=== PATIENT | female | born 1995 | race Caucasian/White ===

== ENCOUNTER 2017-03-12 17:17 | Emergency (ER) | payer OTHER ==
[2017-03-12 17:40] VITALS: BP 117/57; PULSE 67; RESP 18; TEMP 98
--- NOTE | 2017-03-12 18:00 | XR ---
EXAMINATION TYPE: XR wrist complete RT DATE OF EXAM: 03/12/2017 5:52 PM CLINICAL HISTORY: pain TECHNIQUE: Frontal, lateral and oblique images of the right wrist are obtained. Scaphoid views also obtained. COMPARISON: None. FINDINGS: There is no acute fracture/dislocation evident. The joint spaces appear within normal limits. The o verlying soft tissue appears unremarkable. IMPRESSION: There is no acute fracture or dislocation seen. ICD 10 NO FRACTURE, INITIAL EVALUATION
--- NOTE | 2017-03-12 18:05 | ED ---
Upper Extremity HPI - General Chief Complaint: Extremity Injury, Upper Stated Complaint: wrist injury Time Seen by Provider: 03/12/17 17:47 Source: patient, RN notes reviewed Mode of arrival: ambulatory Limitations: no limitations - History of Present Illness Initial Comments: 21-year-old female presents emergency time and with chief complaint of right wrist pain. Patient states that she could not breathe uterus versus hurts with certain movements. 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 Patient states she is in. Patient states is no radiation the pain. Patient states that movement seems to make it worse. Patient is denying any other symptoms at this time.Patient denies any recent fever, chills, shortness of breath, chest pain, back pain, abdominal pain, nausea vomiting, numbness or tingling, dysuria or hematuria, constipation or diarrhea, headaches or visual changes, or any other current symptoms. - Related Data Home Medications Medication Instructions Recorded Confirmed No Known Home Medications [No 03/12/17 03/12/17 Known Home Medications] Allergies Allergy/AdvReac Type Severity Reaction Status Date / Time Penicillins Allergy Anaphylaxis Verified 03/12/17 17:50 Review of Systems ROS Statement: Those systems with pertinent positive or pertinent negative responses have been documented in the HPI. ROS Other: All systems not noted in ROS Statement are negative. Past Medical History Past Medical History: No Reported History History of Any Multi-Drug Resistant Organisms: None Reported Past Surgical History: No Surgical Hx Reported Past Psychological History: Anxiety, Bipolar, Depression, Panic Disorder, PTSD Smoking Status: Current every day smoker Past Alcohol Use History: None Reported Past Drug Use History: None Reported General Exam - General Exam Comments Initial Comments: General: The patient is awake and alert, in no distress, and does not appear acutely ill. Neck: The neck is supple, there is no tenderness. Cardiovascular: There is a regular rate and rhythm. No murmur, rub or gallop is appreciated. Respiratory: Lungs are clear to auscultation, respirations are non-labored, breath sounds are equal. No wheezes, stridor, rales, or rhonchi. Musculoskeletal: Sensation intact. 2+ pulses. Right upper extremity. Full range of motion of the right elbow wrist and hand. Patient does have some mild diffuse tenderness throughout the right wrist. Patient has pain on extremes of range of motion of the right wrist. 5 out of 5 muscle strength testing. Neurological: CN II-XII intact, There are no obvious motor or sensory deficits. Coordination appears grossly intact. Speech is normal. Skin: Skin is warm and dry and no rashes or lesions are noted. Psychiatric: Normal mood and affect. Limitations: no limitations Course Vital Signs 03/12/17 17:37 Temperature 98.0 F Pulse Rate 67 Respiratory 18 Rate Blood Pressure 117/57 O2 Sat by Pulse 100 Oximetry Medical Decision Making - Medical Decision Making 21-year-old female presents to the emergency department what appears to be a right wrist strain. Patient shows no acute process. This time we give give the patient prescription for right wrist splint. We discussed care follow-up and return parameters. We discussed all patient's questions. She stated that she understood and is in agreement plan. Time she will be discharged home. - Radiology Data Radiology results: report reviewed, image reviewed Disposition Clinical Impression: Right wrist sprain Disposition: HOME SELF-CARE Condition: Stable Instructions: Wrist Sprain (ED) Additional Instructions: Please use medication as discussed. Please follow up with family doctor if symptoms have not improved over the next two days. Please return to the emergency room if your symptoms increase or worsen or for any other concerns. Referrals: None,Stated [Primary Care Provider] - 1-2 days Jesus Alegria MD [STAFF PHYSICIAN] - 1-2 days Time of Disposition: 18:05
== END 2017-03-12 18:19 | disposition home or self-care (01) ==
LOC: EC 17:17
DX: S63.501A Unspecified sprain of right wrist, initial encounter (principal); F17.200 Nicotine dependence, unspecified, uncomplicated; Z88.0 Allergy status to penicillin; W18.30XA Fall on same level, unspecified, initial encounter
CPT/HCPCS: 99283

== ENCOUNTER 2017-03-20 06:54 | Emergency (ER) | payer OTHER ==
[2017-03-20 07:03] VITALS: RESP 18
--- NOTE | 2017-03-20 07:29 | ED ---
General Adult HPI - General Chief complaint: ENT Stated complaint: wrist pain-revisit Time Seen by Provider: 03/20/17 07:05 Source: patient, RN notes reviewed Mode of arrival: ambulatory Limitations: no limitations - History of Present Illness Initial comments: Patient is a pleasant 21-year-old female presenting to the emergency department complaining of right wrist pain. Patient states she injured her right wrist at work around 2 weeks ago. Patient was seen and had x-rays done that reported as normal. Patient was prescribed a brace. Patient has had continued discomfort since that time. 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 Patient agrees that this may be causing some problems. No history of chronic problems here. Patient has tried to follow-up with a primary care physician however has had difficulty. Patient states she hit her right distal forearm/wrist region on a metal cabinet while at work. Pain started right afterwards. Patient states the pain does radiate somewhat up the arm. - Related Data Home Medications Medication Instructions Recorded Confirmed No Known Home Medications [No 03/12/17 03/20/17 Known Home Medications] Allergies Allergy/AdvReac Type Severity Reaction Status Date / Time Penicillins Allergy Anaphylaxis Verified 03/20/17 07:12 Review of Systems ROS Statement: Those systems with pertinent positive or pertinent negative responses have been documented in the HPI. ROS Other: All systems not noted in ROS Statement are negative. Constitutional: Denies: fever Eyes: Denies: eye pain ENT: Denies: ear pain Respiratory: Denies: cough Cardiovascular: Denies: chest pain Endocrine: Denies: fatigue Gastrointestinal: Denies: abdominal pain Genitourinary: Denies: urgency Musculoskeletal: Denies: back pain Skin: Denies: rash Neurological: Denies: weakness Past Medical History Past Medical History: No Reported History History of Any Multi-Drug Resistant Organisms: None Reported Past Surgical History: No Surgical Hx Reported Past Psychological History: Anxiety, Bipolar, Depression, Panic Disorder, PTSD Smoking Status: Current every day smoker Past Alcohol Use History: None Reported Past Drug Use History: None Reported General Exam Limitations: no limitations General appearance: alert, in no apparent distress Head exam: Present: atraumatic Eye exam: Present: normal appearance Neck exam: Present: normal inspection Respiratory exam: Present: normal lung sounds bilaterally Cardiovascular Exam: Present: regular rate, normal rhythm GI/Abdominal exam: Present: soft. Absent: tenderness Extremities exam: Present: full ROM (Without much discomfort), tenderness ( Distal right radius region), other (Good strength and sensation is intact) Neurological exam: Present: alert. Absent: motor sensory deficit Psychiatric exam: Present: normal affect, normal mood Skin exam: Absent: rash Course Vital Signs 03/20/17 07:00 Temperature 98.5 F Pulse Rate 70 Respiratory 18 Rate Blood Pressure 146/86 O2 Sat by Pulse 99 Oximetry Medical Decision Making - Medical Decision Making Patient reevaluated and updated. - Radiology Data Radiology results: image reviewed (Right forearm x-ray shows no acute abnormality) Disposition Clinical Impression: Forearm contusion Disposition: HOME SELF-CARE Condition: Stable Instructions: Contusion in Adults (ED) Additional Instructions: Continue to use your wrist brace. Ice to affected area. Avoid repetitive use or heavy lifting with right hand. Please follow-up with [facility] or primary care physician in the next day or 2 for recheck. Continue Motrin or naproxen as needed. Referrals: None,Stated [Primary Care Provider] - 1-2 days Daniel Collier MD [STAFF PHYSICIAN] - 1-2 days Jesus Alegria MD [STAFF PHYSICIAN] - 1-2 days Nestor Garcia MD [STAFF PHYSICIAN] - 1-2 days Lynn Chandra MD [STAFF PHYSICIAN] - 1-2 days Time of Disposition: 08:23
--- NOTE | 2017-03-20 07:42 | XR ---
EXAMINATION TYPE: XR forearm RT DATE OF EXAM: 03/20/2017 7:35 AM COMPARISON: Correlation wrist 03/12/2017 HISTORY: 21-year-old female with pain extending from the wrist to the elbow with numbness following w ork injury 1 week ago. TECHNIQUE: 2 views FINDINGS: No elbow joint effusion on the lateral view. No acute fracture, subluxation, or dislocation seen. IMPRESSION: No acute osseous abnormality seen.
[2017-03-20 08:34] VITALS: BP 128/68; PULSE 54; TEMP 97.4
== END 2017-03-20 08:33 | disposition home or self-care (01) ==
LOC: EC 06:54
DX: S50.11XA Contusion of right forearm, initial encounter (principal); Z88.0 Allergy status to penicillin; F17.200 Nicotine dependence, unspecified, uncomplicated; W22.09XA Striking against other stationary object, initial encounter; Y92.69 Other specified industrial and construction area as the place of occurrence of the external cause; Y99.0 Civilian activity done for income or pay
CPT/HCPCS: 99283

== ENCOUNTER 2017-04-25 21:49 | Emergency (ER) | payer OTHER ==
--- NOTE | 2017-04-25 22:42 | XR ---
EXAM: XR Right Ankle Complete, 3 or More Views CLINICAL HISTORY: Reason: Pain TECHNIQUE: Frontal, lateral and oblique views of the right ankle. COMPARISON: No relevant prior studies available. FINDINGS: No acute fracture or dislocation. IMPRESSION: No acute fracture or dislocation.
--- NOTE | 2017-04-25 22:43 | XR ---
EXAM: XR Right Foot Complete, 3 or More Views CLINICAL HISTORY: Reason: Pain TECHNIQUE: Frontal, lateral and oblique views of the right foot. COMPARISON: No relevant prior studies available. FINDINGS: No acute fracture or dislocation. IMPRESSION: No acute fracture or dislocation.
--- NOTE | 2017-04-25 23:13 | ED ---
Lower Extremity Injury HPI - General Chief Complaint: Extremity Injury, Lower Stated Complaint: Fall, ankle injury Time Seen by Provider: 04/25/17 22:18 Source: patient, EMS, RN notes reviewed Mode of arrival: EMS Limitations: no limitations - History of Present Illness Initial Comments: Patient is a 21-year-old female since emergency room for evaluation of right ankle pain. Patient states she was walking around her house and accidentally twisted her right ankle. Patient states she felt a pop and immediate pain. Patient states she was unable to get up so they called EMS. Patient states having 10 out of 10 pain on the medial and lateral portion of her ankle. Patient denies any other injuries during incident. Patient denies numbness or tingling in her toes. Patient states the pain radiates up to the lateral proximal lower leg. - Related Data Previous Rx's Medication Instructions Recorded Ibuprofen [Motrin] 600 mg PO Q6HR PRN #20 tab 04/25/17 Allergies Allergy/AdvReac Type Severity Reaction Status Date / Time Penicillins Allergy Anaphylaxis Verified 04/25/17 22:55 Review of Systems ROS Statement: Those systems with pertinent positive or pertinent negative responses have been documented in the HPI. ROS Other: All systems not noted in ROS Statement are negative. Past Medical History Past Medical History: No Reported History History of Any Multi-Drug Resistant Organisms: None Reported Past Surgical History: No Surgical Hx Reported Past Psychological History: Anxiety, Bipolar, Depression, Panic Disorder, PTSD Smoking Status: Current every day smoker Past Alcohol Use History: None Reported Past Drug Use History: None Reported General Exam - General Exam Comments Initial Comments: sitting in exam room, no distress. Limitations: no limitations General appearance: alert, in no apparent distress Head exam: Present: atraumatic, normocephalic, normal inspection Eye exam: Present: normal appearance ENT exam: Present: normal exam Neck exam: Present: normal inspection Respiratory exam: Present: normal lung sounds bilaterally. Absent: respiratory distress Cardiovascular Exam: Present: regular rate, normal rhythm, normal heart sounds Right Lower Leg exam: Present: tenderness (lateral proximal) Ankle exam: Present: normal inspection, tenderness (lateral malleolus and medial malleolus) Foot/Toe exam: Present: normal inspection, full ROM. Absent: tenderness Neurovascular tendon exam: Present: no vascular compromise. Absent: pulse deficit (2+ dorsal pedal and posterior tibial pulses), abnormal cap refill ( capillary refill less than 2 seconds) Back exam: Present: normal inspection Neurological exam: Present: alert, oriented X3, CN II-XII intact Psychiatric exam: Present: normal affect, normal mood Skin exam: Present: warm, dry, intact, normal color. Absent: rash Course Vital Signs 04/25/17 04/26/17 22:09 00:21 Temperature 98.0 F 98.8 F Pulse Rate 75 83 Respiratory 18 16 Rate Blood Pressure 133/74 115/55 O2 Sat by Pulse 99 100 Oximetry Medical Decision Making - Medical Decision Making Patient is a 21-year-old female since emergency room for evaluation of right ankle injury. X-ray showed no fractures or dislocations. Patient placed in Red wrap and stirrup splint and advised to follow-up with orthopedically impaired teacher if symptoms are not improving in 7-10 days. Patient states she understands everything that was discussed with her. Return parameters discussed. Case discussed with Dr. Chaidez. - Radiology Data Radiology results: report reviewed, image reviewed Disposition Clinical Impression: Right ankle sprain Disposition: HOME SELF-CARE Condition: Good Instructions: Ankle Sprain (ED) Additional Instructions: Rest, elevate and ice on and off for 10-15 minutes for the next 24-48 hours. Take Tylenol or Motrin as needed for pain. Nonweightbearing for the next 1-2 days. Please follow-up with orthopedically impaired teacher in 7-10 days if symptoms do not improve. If new symptoms develop or symptoms worsen, please return to the ER. Prescriptions: Ibuprofen [Motrin] 600 mg PO Q6HR PRN #20 tab PRN Reason: Pain Referrals: Sergio Strauss MD [Medical Doctor] - 1-2 days Time of Disposition: 23:57
--- NOTE | 2017-04-25 23:52 | XR ---
EXAM: XR Right Tib/Fib CLINICAL HISTORY: Reason: Pain TECHNIQUE: AP and lateral views. COMPARISON: No relevant prior studies available. FINDINGS: No acute fracture. IMPRESSION: No acute fracture.
[2017-04-26 00:22] VITALS: BP 115/55; PULSE 83; RESP 16; TEMP 98.8
== END 2017-04-26 00:21 | disposition home or self-care (01) ==
LOC: EC 21:49
DX: S93.401A Sprain of unspecified ligament of right ankle, initial encounter (principal); F17.200 Nicotine dependence, unspecified, uncomplicated; Z88.0 Allergy status to penicillin; X50.3XXA Overexertion from repetitive movements, initial encounter; Y93.01 Activity, walking, marching and hiking; Y92.009 Unspecified place in unspecified non-institutional (private) residence as the place of occurrence of the external cause
CPT/HCPCS: 99283; 73590; 73610; 73630; L4350

== ENCOUNTER 2017-05-14 14:45 | Emergency (ER) | payer OTHER ==
--- NOTE | 2017-05-14 15:39 | ED ---
ENT HPI - General Chief complaint: ENT Stated complaint: sore throat Time Seen by Provider: 05/14/17 15:27 Source: patient, RN notes reviewed, old records reviewed Mode of arrival: ambulatory Limitations: no limitations - History of Present Illness Initial comments: This is a 21 year old female with CC of sore throat and fever for the past 2 days. She reports that she thinks she has strep, she states that she last took motrin earlier today. Denies any rash, denies cough, shortness of breath, chest pain, or difficulty swallowing. Patient reports she is allergic to penicillin. Patient recieved all childhood vaccines. - Related Data Previous Rx's Medication Instructions Recorded Azithromycin [Zithromax Z-pack] 250 mg PO DIRECTED #6 tab 05/14/17 Allergies Allergy/AdvReac Type Severity Reaction Status Date / Time adhesive tape Allergy Unknown Verified 05/14/17 15:52 Penicillins Allergy Anaphylaxis Verified 05/14/17 15:52 Review of Systems ROS Statement: Those systems with pertinent positive or pertinent negative responses have been documented in the HPI. ROS Other: All systems not noted in ROS Statement are negative. Past Medical History Past Medical History: No Reported History History of Any Multi-Drug Resistant Organisms: None Reported Past Surgical History: No Surgical Hx Reported Past Psychological History: Anxiety, Bipolar, Depression, Panic Disorder, PTSD Smoking Status: Current every day smoker Past Alcohol Use History: None Reported Past Drug Use History: None Reported General Exam - General Exam Comments Initial Comments: Well appearing 21 year old female, no acute distress. Limitations: no limitations General appearance: alert, in no apparent distress Head exam: Present: atraumatic, normocephalic, normal inspection Eye exam: Present: normal appearance, PERRL, EOMI. Absent: scleral icterus, conjunctival injection, periorbital swelling ENT exam: Present: normal exam, mucous membranes moist. Absent: normal oropharynx (erythematous swollen tonsils with bilateral exudate. ) Neck exam: Present: normal inspection. Absent: tenderness, meningismus, lymphadenopathy Respiratory exam: Present: normal lung sounds bilaterally. Absent: respiratory distress, wheezes, rales, rhonchi, stridor Cardiovascular Exam: Present: regular rate, normal rhythm, normal heart sounds. Absent: systolic murmur, diastolic murmur, rubs, gallop, clicks GI/Abdominal exam: Present: soft, normal bowel sounds. Absent: distended, tenderness, guarding, rebound, rigid Extremities exam: Present: normal inspection, full ROM, normal capillary refill. Absent: tenderness, pedal edema, joint swelling, calf tenderness Back exam: Present: normal inspection Neurological exam: Present: alert, oriented X3, CN II-XII intact Psychiatric exam: Present: normal affect, normal mood Skin exam: Present: warm, dry, intact, normal color. Absent: rash Course Vital Signs 05/14/17 05/14/17 15:03 15:55 Temperature 98.3 F 97.6 F Pulse Rate 97 89 Respiratory 20 18 Rate Blood Pressure 129/61 132/73 O2 Sat by Pulse 99 98 Oximetry Medical Decision Making - Medical Decision Making This is a 21 year old female with CC of sore throat and fever for the past 2 days. Patient rapid strep is positive. She will be started on Z-david. Patient has also been advised to follow up with PCP and return parameters discussed. - Lab Data Lab Results 05/14/17 Range/Units 15:35 Group A Strep Rapid Positive A (Negative) Disposition Clinical Impression: Strep pharyngitis Disposition: HOME SELF-CARE Condition: Good Instructions: Strep Throat (ED) Additional Instructions: Patient advised to take antibiotic prescription. Return to the emergency department if any alarming signs or symptoms occur. Prescriptions: Azithromycin [Zithromax Z-pack] 250 mg PO DIRECTED #6 tab Referrals: None,Stated [Primary Care Provider] - 1-2 days Time of Disposition: 15:38
[2017-05-14 15:56] VITALS: BP 132/73; PULSE 89; RESP 18; TEMP 97.6
== END 2017-05-14 15:56 | disposition home or self-care (01) ==
LOC: EC 14:45
DX: J02.0 Streptococcal pharyngitis (principal); F17.200 Nicotine dependence, unspecified, uncomplicated; Z88.0 Allergy status to penicillin; Z91.09 Other allergy status, other than to drugs and biological substances
CPT/HCPCS: 87430; 99283

== ENCOUNTER → 2017-05-17 | Outpatient (CLI) | payer OTHER | END | disposition home or self-care (01) | LOC: RADFLMAIN 12:19 | PROVIDERS: ATTEND Emergency Medicine | DX: Z53.9 Procedure and treatment not carried out, unspecified reason (principal) ==

== ENCOUNTER 2017-05-30 12:24 | Emergency (ER) | payer OTHER ==
[2017-05-30] MEDS ORDERED: HYDROCORTISONE SUCCINATE 100 MG/2 ML VIAL IV STA ×2 (15:41)
[2017-05-30] MEDS ORDERED: diphenhydrAMINE 50 MG/ML 1 ML VIAL IM STA (15:41)
[2017-05-30] MEDS ORDERED: diphenhydrAMINE 50 MG/ML 1 ML VIAL IVP STA (15:47)
[2017-05-30 16:36] VITALS: TEMP 97.3
[2017-05-30] MEDS ORDERED: FAMOTIDINE 20 MG/2 ML VIAL IV STA (16:36)
--- NOTE | 2017-05-30 16:47 | ED ---
Allergic Reaction HPI - General Chief complaint: Allergic Reaction Time Seen by Provider: 05/30/17 16:25 Source: patient, RN notes reviewed Mode of arrival: wheelchair Limitations: no limitations - History of Present Illness Initial Comments: Patient is a 21-year-old female who presents to the emergency department from the [place] department for evaluation of ALLERGIC reaction. Patient states that she received IV dye for a arthrogram of her right wrist. She reports that immediately after receiving the dye she felt burning and tightness in her chest and throat. She was given 50 mg of IV Benadryl and 125 mg of IV Solu-Medrol. She reports that upon arrival to the emergency department her symptoms have completely resolved. denies experiencing any swelling of her lips or tongue, any sensation that her throat was closing, any rash or hives. She denies any nausea or vomiting or GI upset. Patient has no history of anaphylaxis although she is ALLERGIC to penicillin. And states that she has never received IV dye before, however all of her siblings are ALLERGIC to IV dye so she believed that she would be as well. MD Complaint: allergic reaction Exposure: medication - Related Data Allergies Allergy/AdvReac Type Severity Reaction Status Date / Time adhesive tape Allergy Unknown Verified 05/30/17 16:21 Penicillins Allergy Anaphylaxis Verified 05/30/17 16:21 Review of Systems ROS Statement: Those systems with pertinent positive or pertinent negative responses have been documented in the HPI. ROS Other: All systems not noted in ROS Statement are negative. Constitutional: Denies: fever, chills Eyes: Denies: vision change ENT: Denies: congestion Respiratory: Reports: other (Tightness in her chest). Denies: wheezes Cardiovascular: Reports: palpitations Endocrine: Denies: fatigue Gastrointestinal: Denies: abdominal pain, nausea Genitourinary: Denies: urgency, dysuria Musculoskeletal: Denies: back pain Skin: Denies: rash, lesions Neurological: Denies: headache, weakness Hematological/Lymphatic: Denies: easy bleeding, easy bruising Past Medical History Past Medical History: No Reported History History of Any Multi-Drug Resistant Organisms: None Reported Past Surgical History: No Surgical Hx Reported Past Psychological History: Anxiety, Bipolar, Depression, Panic Disorder, PTSD Smoking Status: Current every day smoker Past Alcohol Use History: None Reported Past Drug Use History: None Reported General Exam Limitations: no limitations General appearance: alert, in no apparent distress Head exam: Present: atraumatic, normocephalic, normal inspection Eye exam: Present: normal appearance, PERRL, EOMI. Absent: scleral icterus, conjunctival injection, periorbital swelling ENT exam: Present: normal exam, normal oropharynx, mucous membranes moist, other (No uvula edema, no edema of the tongue no edema of the lips) Neck exam: Present: normal inspection. Absent: tenderness, meningismus, lymphadenopathy Respiratory exam: Present: normal lung sounds bilaterally. Absent: respiratory distress, wheezes, rales, rhonchi, stridor Cardiovascular Exam: Present: regular rate, normal rhythm, normal heart sounds. Absent: systolic murmur, diastolic murmur, rubs, gallop, clicks GI/Abdominal exam: Present: soft, normal bowel sounds. Absent: distended, tenderness, guarding, rebound, rigid Rectal exam: Present: deferred Neurological exam: Present: alert, oriented X3, CN II-XII intact Psychiatric exam: Present: normal affect, normal mood Skin exam: Present: warm, dry, intact, normal color. Absent: rash, urticaria, vesicles, petechiae Course Vital Signs 05/30/17 16:21 Temperature 97.3 F L Pulse Rate 52 L Respiratory 16 Rate Blood Pressure 119/60 O2 Sat by Pulse 98 Oximetry Medical Decision Making - Medical Decision Making She was seen and evaluated History was obtained from the patient as well as the CT staff Patient believe that she would have an ALLERGY to IV contrast because her siblings have similar ALLERGY, patient reports that immediately upon receiving the contrast she felt warmness and tightness in her chest and neck as well as her extremities She was treated appropriately for an ALLERGIC reaction with IV Benadryl and Solu -Medrol Patient had no evidence of hypotension, angioedema, wheezing, or urticaria Patient remains asymptomatic in the emergency department, Pepcid was ordered to complete therapy Patient's only complaint is the emergency department as the Benadryl as made her tired. She was observed for 30 minutes with no change in her condition. I'm not convinced this is a true ALLERGIC reaction I had a conversation with the patient regarding biphasic ALLERGIC reactions and the potential for development of ALLERGIC reaction later tonight due to delayed histamine release. Patient expressed understanding and states she will call 911 or return to the emergency department if she develops any recurrence of symptoms. Patient was discharged home. - Lab Data Lab Results 05/30/17 Range/Units 13:14 HCG, Quant 8.0 mIU/mL Disposition Clinical Impression: Allergic reaction Disposition: HOME SELF-CARE Instructions: General Allergic Reaction (ED) Referrals: None,Stated [Primary Care Provider] - 1-2 days Time of Disposition: 17:04
[2017-05-30 17:19] VITALS: BP 114/80; PULSE 61; RESP 16
--- NOTE | 2017-05-31 09:16 | FL ---
EXAMINATION TYPE: Right wrist fluoroscopic-guided arthrogram injection. DATE OF EXAM: 05/30/2017 HISTORY: 21-year-old female right wrist contusion and pain PROCEDURES: 1. Right wrist fluoroscopy. 2. Right wrist arthrogram. TECHNIQUE: The procedure, risks (bleeding, infection, contrast allergic reaction), and alternatives, were discus sed with the patient, who requested that we proceed. The consent form was signed, and teach-back occu rred. The site/side of the procedure was marked with a line with participation by the patient. The accompan ho paperwork was verified for consistency. A directed history and physical exam was performed prior to the procedure. Medication reconciliation was performed by ancillary personnel. A critical pause was performed with assisting personnel just pr ior to the procedure, and the patient's identity was confirmed using 2 identifiers. Imaging guidance was utilized to select the precise skin entry point just prior to the procedure. The dorsal right wrist was prepped and draped in the usual sterile fashion and local 1% lidocaine ane sthesia was instilled. Under fluoroscopic guidance, a 25-gauge standard needle was introduced into t he dorsal radioscaphoid joint. Appropriate needle tip position was confirmed after a small amount of contrast injection. 3 mL of a mixture of Omnipaque 240 iodinated contrast and gadolinium was injected into the wrist join t. The needle was then removed. The patient tolerated the procedure well. Postprocedure images show some extravasation of the injected contrast. No definite extension into the midcarpal compartment to suggest tear of the scapholunate ligament. Unable to determine if there is abnormal extension into the distal radial ulnar joint versus extravasation along the ulnar aspect of the wrist. Some contrast extends along the ECU tendon sheath. There was no immediate complication. After the procedure, the patient's condition was unchanged. Estimated blood loss was minimal. Patien t was counseled on routine postprocedure precautions including monitoring for signs of infection. IMPRESSION: Technically successful right wrist arthrogram injection for MRI. There is some extravasation of the injected contrast. No evidence for scapholunate ligament tear. Ass essment of the TFC is limited due to the contrast extravasation. While there was no immediate complication, note that the patient was taken out of the scanner due to an unusual sensation in the right side of her throat and complaints of some trouble breathing. The MR I exam was terminated. Patient was given IV Benadryl and steroids. Patient was transferred to the ER for further management. If patient's symptoms persist, consideration can be given to follow-up with c onventional right wrist MRI.
== END 2017-05-30 17:19 | disposition home or self-care (01) ==
LOC: RADFLMAIN 12:24 → EC 12:24 → EDSTATUS 13:00 → EC 17:19
DX: T50.8X5A Adverse effect of diagnostic agents, initial encounter (principal); F17.200 Nicotine dependence, unspecified, uncomplicated; Z88.0 Allergy status to penicillin; Z91.09 Other allergy status, other than to drugs and biological substances; Y92.89 Other specified places as the place of occurrence of the external cause
CPT/HCPCS: 84702; 25246; 73115; 99283; 96374; 96375 ×2; J1200; J1720; Q9967

== ENCOUNTER 2017-05-31 13:06 | Emergency (ER) | payer OTHER ==
[2017-05-31 13:16] VITALS: RESP 18
[2017-05-31] MEDS ORDERED: SODIUM CHLORIDE 0.9% 1,000 ML IV ONE (13:24)
[2017-05-31] MEDS ORDERED: ONDANSETRON 4 MG/2 ML VIAL IVP STA (13:24)
--- NOTE | 2017-05-31 13:31 | ED ---
General Adult HPI - General Chief complaint: Allergic Reaction Stated complaint: abd pain Time Seen by Provider: 05/31/17 13:11 Source: patient, EMS Mode of arrival: EMS Limitations: no limitations - History of Present Illness Initial comments: Patient is a 21-year-old female who presents to the emergency department for evaluation of nausea and vomiting. Patient was seen in our department yesterday after which she believed was an ALLERGIC reaction to IV contrast. The patient received IV contrast immediately felt a tightness and warmth in her chest and neck. She was treated with Solu-Medrol and Benadryl as well as Pepcid and discharged home. Patient reports upon discharge home she developed nausea and over the course of the night had 10-11 episodes of nonbloody nonbilious emesis. She reports that she's been unable to tolerate anything by mouth, including water. She reports she was able to eat some cheese its and SpaghettiOs upon arrival home from the hospital yesterday however vomited that up and has not been able to eat any solid foods. She denies any recurrent episodes of shortness of breath, chest tightness or development of any rashes or hives. She does report that for a brief period while eating cheese its she did feel like her throat was kind of tight or scratchy however that resolved. - Related Data Home Medications Medication Instructions Recorded Confirmed Omeprazole 20 mg PO 05/31/17 Vitamin D3(Unknown Dose) 1 tab PO DAILY 05/31/17 05/31/17 Previous Rx's Medication Instructions Recorded Ondansetron Odt [Zofran Odt] 4 mg PO Q8HR PRN #12 tab 05/31/17 Allergies Allergy/AdvReac Type Severity Reaction Status Date / Time adhesive tape Allergy Rash/Hives Verified 05/31/17 14:25 iodine Allergy Anaphylaxis Verified 05/31/17 14:25 Penicillins Allergy Anaphylaxis Verified 05/31/17 14:25 wool Allergy Rash/Hives Verified 05/31/17 14:25 tomato AdvReac Nausea & Verified 05/31/17 14:25 Vomiting chlorine Allergy Rash/Hives Uncoded 05/31/17 14:23 chlorophyll Allergy Unknown Uncoded 05/31/17 14:25 dust Allergy Wheezing Uncoded 05/31/17 14:23 pet dander Allergy Wheezing Uncoded 05/31/17 14:23 Review of Systems ROS Statement: Those systems with pertinent positive or pertinent negative responses have been documented in the HPI. ROS Other: All systems not noted in ROS Statement are negative. Constitutional: Denies: fever, chills Eyes: Denies: vision change ENT: Denies: throat pain Respiratory: Denies: cough, dyspnea, wheezes Cardiovascular: Denies: chest pain, palpitations Endocrine: Reports: fatigue Gastrointestinal: Reports: abdominal pain, nausea, vomiting, diarrhea. Denies: constipation Genitourinary: Denies: urgency, dysuria, abnormal menses Musculoskeletal: Denies: back pain Skin: Denies: rash, lesions Neurological: Denies: headache, weakness Past Medical History Past Medical History: No Reported History History of Any Multi-Drug Resistant Organisms: None Reported Past Surgical History: No Surgical Hx Reported Past Psychological History: Anxiety, Bipolar, Depression, Panic Disorder, PTSD Smoking Status: Current every day smoker Past Alcohol Use History: None Reported Past Drug Use History: None Reported General Exam Limitations: no limitations General appearance: alert, in no apparent distress Head exam: Present: atraumatic, normocephalic, normal inspection Eye exam: Present: normal appearance, PERRL, EOMI. Absent: scleral icterus, conjunctival injection, periorbital swelling ENT exam: Present: normal exam, mucous membranes moist Neck exam: Present: normal inspection. Absent: tenderness, meningismus, lymphadenopathy Respiratory exam: Present: normal lung sounds bilaterally. Absent: respiratory distress, wheezes, rales, rhonchi, stridor Cardiovascular Exam: Present: regular rate, normal rhythm, normal heart sounds. Absent: systolic murmur, diastolic murmur, rubs, gallop, clicks GI/Abdominal exam: Present: soft, tenderness, normal bowel sounds. Absent: distended, guarding, rebound, rigid Rectal exam: Present: deferred Extremities exam: Present: normal inspection, full ROM, normal capillary refill. Absent: tenderness, pedal edema, joint swelling, calf tenderness Neurological exam: Present: alert, oriented X3, CN II-XII intact Skin exam: Present: warm, dry, intact, normal color. Absent: rash Course Vital Signs 05/31/17 13:12 Temperature 98.4 F Pulse Rate 67 Respiratory 18 Rate Blood Pressure 123/62 O2 Sat by Pulse 98 Oximetry Medical Decision Making - Medical Decision Making Patient seen and evaluated Patient with nausea vomiting diarrhea for approximately 12-18 hours after receiving IV contrast Physical exam with no acute findings, patient appears well-hydrated and in no acute distress. Patient is tearful and crying stating that she is sad that she doesn't feel good and is concerned that she is having an ALLERGIC reaction. Patient reported complete resolution of her nausea after IV Zofran Labs are with elevation of chloride no other acute abnormalities Urinalysis is negative for acute urinary tract infection test was negative yesterday All questions pertaining to care were answered, results were discussed with the patient was agreeable for plan for discharge home with a Zofran ODT - Lab Data Result diagrams: 05/31/17 13:54 05/31/17 13:54 Lab Results 05/31/17 05/31/17 05/31/17 Range/Units 13:54 13:54 13:54 WBC 9.8 (4.0-11.0) k/uL RBC 4.27 (3.80-5.40) m/uL Hgb 13.8 (11.4-16.0) gm/dL Hct 40.0 (34.0-46.0) % MCV 93.8 (80.0-100.0) fL MCH 32.3 (25.0-35.0) pg MCHC 34.5 (31.0-37.0) g/dL RDW 12.9 (11.5-15.5) % Plt Count 264 (150-450) k/uL Neutrophils % 61 % Lymphocytes % 28 % Monocytes % 5 % Eosinophils % 3 % Basophils % 1 % Neutrophils # 6.0 (1.3-7.7) k/uL Lymphocytes # 2.8 (1.0-4.8) k/uL Monocytes # 0.5 (0-1.0) k/uL Eosinophils # 0.3 (0-0.7) k/uL Basophils # 0.1 (0-0.2) k/uL Sodium 141 (137-145) mmol/L Potassium 4.5 (3.5-5.1) mmol/L Chloride 111 H (98-107) mmol/L Carbon Dioxide 23 (22-30) mmol/L Anion Gap 7 mmol/L BUN 11 (7-17) mg/dL Creatinine 0.64 (0.52-1.04) mg/dL Est GFR (MDRD) Af Amer >60 (>60 ml/min/1.73 sqM) Est GFR (MDRD) Non-Af >60 (>60 ml/min/1.73 sqM) Glucose 81 (74-99) mg/dL Calcium 9.3 (8.4-10.2) mg/dL Total Bilirubin 0.2 (0.2-1.3) mg/dL AST 24 (14-36) U/L ALT 40 (9-52) U/L Alkaline Phosphatase 51 (38-126) U/L Total Protein 6.0 L (6.3-8.2) g/dL Albumin 3.9 (3.5-5.0) g/dL Urine Color Urine Appearance (Clear) Urine pH (5.0-8.0) Ur Specific Dewey (1.001-1.035) Urine Protein (Negative) Urine Glucose (UA) (Negative) Urine Ketones (Negative) Urine Blood (Negative) Urine Nitrite (Negative) Urine Bilirubin (Negative) Urine Urobilinogen (<2.0) mg/dL Ur Leukocyte Esterase (Negative) Urine HCG, Qual Not Detected (Not Detectd) 05/31/17 Range/Units 13:54 WBC (4.0-11.0) k/uL RBC (3.80-5.40) m/uL Hgb (11.4-16.0) gm/dL Hct (34.0-46.0) % MCV (80.0-100.0) fL MCH (25.0-35.0) pg MCHC (31.0-37.0) g/dL RDW (11.5-15.5) % Plt Count (150-450) k/uL Neutrophils % % Lymphocytes % % Monocytes % % Eosinophils % % Basophils % % Neutrophils # (1.3-7.7) k/uL Lymphocytes # (1.0-4.8) k/uL Monocytes # (0-1.0) k/uL Eosinophils # (0-0.7) k/uL Basophils # (0-0.2) k/uL Sodium (137-145) mmol/L Potassium (3.5-5.1) mmol/L Chloride (98-107) mmol/L Carbon Dioxide (22-30) mmol/L Anion Gap mmol/L BUN (7-17) mg/dL Creatinine (0.52-1.04) mg/dL Est GFR (MDRD) Af Amer (>60 ml/min/1.73 sqM) Est GFR (MDRD) Non-Af (>60 ml/min/1.73 sqM) Glucose (74-99) mg/dL Calcium (8.4-10.2) mg/dL Total Bilirubin (0.2-1.3) mg/dL AST (14-36) U/L ALT (9-52) U/L Alkaline Phosphatase (38-126) U/L Total Protein (6.3-8.2) g/dL Albumin (3.5-5.0) g/dL Urine Color Light Yellow Urine Appearance Clear (Clear) Urine pH 6.5 (5.0-8.0) Ur Specific [place]wey 1.004 (1.001-1.035) Urine Protein Negative (Negative) Urine Glucose (UA) Negative (Negative) Urine Ketones Negative (Negative) Urine Blood Negative (Negative) Urine Nitrite Negative (Negative) Urine Bilirubin Negative (Negative) Urine Urobilinogen <2.0 (<2.0) mg/dL Ur Leukocyte Esterase Negative (Negative) Urine HCG, Qual (Not Detectd) Disposition Clinical Impression: Nausea and vomiting Disposition: HOME SELF-CARE Condition: Good Instructions: Acute Nausea and Vomiting (ED) Prescriptions: Ondansetron Odt [Zofran Odt] 4 mg PO Q8HR PRN #12 tab PRN Reason: Nausea Referrals: None,Stated [Primary Care Provider] - 1-2 days
[2017-05-31 14:11] LABS: Basophils # (A) 0.1 k/uL (0-0.2); Basophils % (A) 1 %; CH 31.2; CHCM 33.4; Eosinophils # (A) 0.3 k/uL (0-0.7); Eosinophils % (A) 3 %; HDW 2.19; HGB 13.8 gm/dL (11.4-16.0); Luc # (Auto) 0.18; Luc % (Auto) 2; Lymphocytes # (A) 2.8 k/uL (1.0-4.8); Lymphocytes % (A) 28 %; MCH 32.3 pg (25.0-35.0); MCHC 34.5 g/dL (31.0-37.0); MCV 93.8 fL (80.0-100.0); Mean Platelet Volume 7.7; Monocytes # (A) 0.5 k/uL (0-1.0); Monocytes % (A) 5 %; Neutrophils % (A) 61 %; RBC 4.27 m/uL (3.80-5.40); RDW 12.9 % (11.5-15.5); WBC 9.8 k/uL (4.0-11.0); WBC (Perox) 10.48
[2017-05-31 14:22] LABS: ALT 40 U/L (9-52); AST 24 U/L (14-36); Alkaline Phosphatase 51 U/L (38-126); Anion Gap 7 mmol/L; Blood Urea Nitrogen 11 mg/dL (7-17); Calcium 9.3 mg/dL (8.4-10.2); Carbon Dioxide 23 mmol/L (22-30); Chloride 111 mmol/L (98-107); Glucose 81 mg/dL (74-99); Non-African American GFR(MDRD) >60 (>60 ml/min/1.73 sqM); Potassium 4.5 mmol/L (3.5-5.1); Sodium 141 mmol/L (137-145); Total Bilirubin 0.2 mg/dL (0.2-1.3)
[2017-05-31 14:25] LABS: Appearance,Urine Clear (Clear); Bilirubin,Urine Negative (Negative); Glucose,Urine (UA) Negative (Negative); Ketones,Urine Negative (Negative); Leukocyte Esterase,Urine Negative (Negative); Nitrite,Urine Negative (Negative); PH, Urine 6.5 (5.0-8.0); Protein,Urine Negative (Negative); Specific Gravity,Urine 1.004 (1.001-1.035); UA Billing (MACRO vs. MICRO) CHEM; Urobilinogen,Urine <2.0 mg/dL (<2.0)
[2017-05-31 15:15] VITALS: BP 129/59; PULSE 55; TEMP 98.3
== END 2017-05-31 15:20 | disposition home or self-care (01) ==
LOC: EC 13:06
DX: R11.2 Nausea with vomiting, unspecified (principal); R10.9 Unspecified abdominal pain; R79.89 Other specified abnormal findings of blood chemistry; F17.200 Nicotine dependence, unspecified, uncomplicated; Z79.899 Other long term (current) drug therapy; Z88.0 Allergy status to penicillin; Z91.018 Allergy to other foods; Z91.041 Radiographic dye allergy status; Z91.048 Other nonmedicinal substance allergy status; Z91.09 Other allergy status, other than to drugs and biological substances
CPT/HCPCS: 36415; 80053; 85025; 81003; 81025; 99283; 96374; 96361; J2405

== ENCOUNTER → 2017-10-14 | Outpatient (CLI) | payer OTHER ==
--- NOTE | 2017-10-14 16:19 | US ---
EXAMINATION TYPE: US OB <= 14 wk fetus DATE OF EXAM: 10/14/2017 COMPARISON: NONE CLINICAL HISTORY: 22-year-old female confirm dates EXAM PERFORMED: Transabdominal Findings: EXAM MEASUREMENTS: GESTATIONAL AGE / DATING Physician Established: Not yet established Dates by LMP: (9 weeks/0 days) EDC: 05/19/2018 Dates by First Scan: No previous this is first scan Dates by Current Scan for: (7 weeks/3 days) EDC: 05/30/2018 MATERNAL ANATOMY Uterus: 8.3 x 5.6 x 4.2cm Right Ovary: 3.2 x 2.0 x 2.0cm Left Ovary: 2.0 x 1.8 x 1.4cm Post CDS / Adnexa: wnl Presence of free fluid: no Presence of corpus luteal cyst: not seen Presence of subchorionic bleed: no GESTATION / SURVEY CRL: 11.6cm (7 weeks/3 days) MSD: wnl Yolk Sac (normal less than 6mm): 0.3cm Heart Rate: 109 bpm Rhythm: Normal IUP: Viable IUP Date of LMP: 08/12/2018 Beta HcG (if available): not available IMPRESSION: 1. Single live anterior with estimated gestational age of 9 weeks 0 days by LMP. Current ul trasound biometry is discordant and smaller (7 weeks 3 days). 2. Given the discordance and presence of bradycardia (109 BPM), short interval follow-up is rec ommended.
== END | disposition home or self-care (01) ==
LOC: RADUSWWP 11:01
PROVIDERS: ATTEND Obstetrics & Gynecology
DX: O36.8310 Maternal care for abnormalities of the fetal heart rate or rhythm, first trimester, not applicable or unspecified (principal); Z3A.09 9 weeks gestation of pregnancy
CPT/HCPCS: 76801

== ENCOUNTER 2017-10-19 16:30 | Emergency (ER) | payer OTHER ==
[2017-10-19 16:37] VITALS: TEMP 97.4
[2017-10-19] MEDS ORDERED: SODIUM CHLORIDE 0.9% 500 ML IV ONE (16:41)
[2017-10-19] MEDS ORDERED: ACETAMINOPHEN IV (For NPO) 1,000 MG in EMPTY BAG 1 BAG IVPB STA (16:42)
--- NOTE | 2017-10-19 16:48 | ED ---
General Adult HPI - General Chief complaint: Vaginal Bleeding Stated complaint: Abd Pain, Vaginal Bleeding Time Seen by Provider: 10/19/17 16:31 Source: patient, RN notes reviewed, old records reviewed Mode of arrival: EMS Limitations: no limitations - History of Present Illness Initial comments: This is a 22-year-old female to the ER for evaluation. Patient is here today for evaluation of bleeding. Vaginal bleeding while . Patient is a with 2 prior miscarriages. Patient's high risk secondary to prior history. Patient is complaining of pain in her back with no other pain. No abdominal pain. No nausea vomiting. Patient states symptoms all started today - Related Data Home Medications Medication Instructions Recorded Confirmed Gummie 2 tab PO DAILY 10/19/17 10/19/17 Allergies Allergy/AdvReac Type Severity Reaction Status Date / Time adhesive tape Allergy Rash/Hives Verified 10/19/17 18:11 aspirin Allergy Rash/Hives Verified 10/19/17 18:11 iodine Allergy Anaphylaxis Verified 10/19/17 18:11 Penicillins Allergy Anaphylaxis Verified 10/19/17 18:11 wool Allergy Rash/Hives Verified 10/19/17 18:11 tomato AdvReac Nausea & Verified 10/19/17 18:11 Vomiting chlorine Allergy Rash/Hives Uncoded 05/31/17 14:23 chlorophyll Allergy Unknown Uncoded 05/31/17 14:25 dust Allergy Wheezing Uncoded 05/31/17 14:23 pet dander Allergy Wheezing Uncoded 05/31/17 14:23 Review of Systems ROS Statement: Those systems with pertinent positive or pertinent negative responses have been documented in the HPI. ROS Other: All systems not noted in ROS Statement are negative. Past Medical History Past Medical History: No Reported History History of Any Multi-Drug Resistant Organisms: None Reported Past Surgical History: No Surgical Hx Reported Past Psychological History: Anxiety, Bipolar, Depression, Panic Disorder, PTSD Smoking Status: Current every day smoker Past Alcohol Use History: None Reported Past Drug Use History: None Reported General Exam Limitations: no limitations General appearance: alert, in no apparent distress Head exam: Present: atraumatic, normocephalic, normal inspection Eye exam: Present: normal appearance, PERRL, EOMI. Absent: scleral icterus, conjunctival injection, periorbital swelling ENT exam: Present: normal exam, mucous membranes moist Neck exam: Present: normal inspection. Absent: tenderness, meningismus, lymphadenopathy Respiratory exam: Present: normal lung sounds bilaterally. Absent: respiratory distress, wheezes, rales, rhonchi, stridor Cardiovascular Exam: Present: regular rate, normal rhythm, normal heart sounds. Absent: systolic murmur, diastolic murmur, rubs, gallop, clicks GI/Abdominal exam: Present: soft, normal bowel sounds. Absent: distended, tenderness, guarding, rebound, rigid Extremities exam: Present: normal inspection, full ROM, normal capillary refill. Absent: tenderness, pedal edema, joint swelling, calf tenderness Back exam: Present: normal inspection Neurological exam: Present: alert, oriented X3, CN II-XII intact Psychiatric exam: Present: normal affect, normal mood Skin exam: Present: warm, dry, intact, normal color. Absent: rash Course Vital Signs 10/19/17 16:33 Temperature 97.4 F L Pulse Rate 65 Respiratory 16 Rate Blood Pressure 132/73 O2 Sat by Pulse 97 Oximetry - Reevaluation(s) Reevaluation #1: 10/19/17 17:59 patient without significant bleeding here in the ED Reevaluation #2: 10/19/17 18:19 patient negative and is given Rhogam Medical Decision Making - Medical Decision Making 22 female to ER with vaginal bleeding., Vaginal bleeding , was positive a week IUP, patient can be discharged home - Lab Data Result diagrams: 10/19/17 16:40 10/19/17 16:40 Lab Results 10/19/17 10/19/17 10/19/17 Range/Units 16:40 16:40 16:40 WBC 8.9 (3.8-10.6) k/uL RBC 4.38 (3.80-5.40) m/uL Hgb 13.4 (11.4-16.0) gm/dL Hct 40.9 (34.0-46.0) % MCV 93.5 (80.0-100.0) fL MCH 30.7 (25.0-35.0) pg MCHC 32.8 (31.0-37.0) g/dL RDW 13.7 (11.5-15.5) % Plt Count 252 (150-450) k/uL Neutrophils % 59 % Lymphocytes % 27 % Monocytes % 5 % Eosinophils % 7 % Basophils % 1 % Neutrophils # 5.2 (1.3-7.7) k/uL Lymphocytes # 2.4 (1.0-4.8) k/uL Monocytes # 0.5 (0-1.0) k/uL Eosinophils # 0.6 (0-0.7) k/uL Basophils # 0.1 (0-0.2) k/uL PT (9.0-12.0) sec INR (<1.2) APTT (22.0-30.0) sec Sodium 141 (137-145) mmol/L Potassium 4.6 (3.5-5.1) mmol/L Chloride 109 H (98-107) mmol/L Carbon Dioxide 23 (22-30) mmol/L Anion Gap 9 mmol/L BUN 13 (7-17) mg/dL Creatinine 0.67 (0.52-1.04) mg/dL Est GFR (MDRD) Af Amer >60 (>60 ml/min/1.73 sqM) Est GFR (MDRD) Non-Af >60 (>60 ml/min/1.73 sqM) Glucose 92 (74-99) mg/dL Calcium 10.2 (8.4-10.2) mg/dL Total Bilirubin 0.2 (0.2-1.3) mg/dL AST 20 (14-36) U/L ALT 34 (9-52) U/L Alkaline Phosphatase 56 (38-126) U/L Total Protein 7.1 (6.3-8.2) g/dL Albumin 4.5 (3.5-5.0) g/dL Urine Color Urine Appearance (Clear) Urine pH (5.0-8.0) Ur Specific Emm[place] (1.001-1.035) Urine Protein (Negative) Urine Glucose (UA) (Negative) Urine Ketones (Negative) Urine Blood (Negative) Urine Nitrite (Negative) Urine Bilirubin (Negative) Urine Urobilinogen (<2.0) mg/dL Ur Leukocyte Esterase (Negative) Urine HCG, Qual (Not Detectd) Blood Type O Negative Blood Type Recheck No 10/19/17 10/19/17 10/19/17 Range/Units 16:45 16:45 16:50 WBC (3.8-10.6) k/uL RBC (3.80-5.40) m/uL Hgb (11.4-16.0) gm/dL Hct (34.0-46.0) % MCV (80.0-100.0) fL MCH (25.0-35.0) pg MCHC (31.0-37.0) g/dL RDW (11.5-15.5) % Plt Count (150-450) k/uL Neutrophils % % Lymphocytes % % Monocytes % % Eosinophils % % Basophils % % Neutrophils # (1.3-7.7) k/uL Lymphocytes # (1.0-4.8) k/uL Monocytes # (0-1.0) k/uL Eosinophils # (0-0.7) k/uL Basophils # (0-0.2) k/uL PT 10.4 (9.0-12.0) sec INR 1.1 (<1.2) APTT 24.2 (22.0-30.0) sec Sodium (137-145) mmol/L Potassium (3.5-5.1) mmol/L Chloride (98-107) mmol/L Carbon Dioxide (22-30) mmol/L Anion Gap mmol/L BUN (7-17) mg/dL Creatinine (0.52-1.04) mg/dL Est GFR (MDRD) Af Amer (>60 ml/min/1.73 sqM) Est GFR (MDRD) Non-Af (>60 ml/min/1.73 sqM) Glucose (74-99) mg/dL Calcium (8.4-10.2) mg/dL Total Bilirubin (0.2-1.3) mg/dL AST (14-36) U/L ALT (9-52) U/L Alkaline Phosphatase (38-126) U/L Total Protein (6.3-8.2) g/dL Albumin (3.5-5.0) g/dL Urine Color Colorless Urine Appearance Clear (Clear) Urine pH 6.5 (5.0-8.0) Ur Specific Emm[place] 1.003 (1.001-1.035) Urine Protein Negative (Negative) Urine Glucose (UA) Negative (Negative) Urine Ketones Negative (Negative) Urine Blood Negative (Negative) Urine Nitrite Negative (Negative) Urine Bilirubin Negative (Negative) Urine Urobilinogen <2.0 (<2.0) mg/dL Ur Leukocyte Esterase Negative (Negative) Urine HCG, Qual Detected (Not Detectd) Blood Type Blood Type Recheck - Radiology Data Radiology results: report reviewed (Ultrasound positive for IUP), image reviewed Disposition Clinical Impression: Threatened , demise Disposition: HOME SELF-CARE Condition: Good Instructions: Miscarriage (ED) Referrals: Mukul Pena DO [Primary Care Provider] - 1-2 days
[2017-10-19 16:52] LABS: Basophils # (A) 0.1 k/uL (0-0.2); Basophils % (A) 1 %; CH 30.4; CHCM 32.6; Eosinophils # (A) 0.6 k/uL (0-0.7); Eosinophils % (A) 7 %; HCT 40.9 % (34.0-46.0); HDW 2.04; HGB 13.4 gm/dL (11.4-16.0); Luc # (Auto) 0.12; Luc % (Auto) 1; Lymphocytes # (A) 2.4 k/uL (1.0-4.8); Lymphocytes % (A) 27 %; MCH 30.7 pg (25.0-35.0); MCHC 32.8 g/dL (31.0-37.0); MCV 93.5 fL (80.0-100.0); Mean Platelet Volume 7.8; Monocytes # (A) 0.5 k/uL (0-1.0); Monocytes % (A) 5 %; Neutrophils # (A) 5.2 k/uL (1.3-7.7); Neutrophils % (A) 59 %; RBC 4.38 m/uL (3.80-5.40); RDW 13.7 % (11.5-15.5); WBC 8.9 k/uL (3.8-10.6)
[2017-10-19 17:02] LABS: ALT 34 U/L (9-52); AST 20 U/L (14-36); Alkaline Phosphatase 56 U/L (38-126); Anion Gap 9 mmol/L; Blood Urea Nitrogen 13 mg/dL (7-17); Calcium 10.2 mg/dL (8.4-10.2); Carbon Dioxide 23 mmol/L (22-30); Chloride 109 mmol/L (98-107); Glucose 92 mg/dL (74-99); Non-African American GFR(MDRD) >60 (>60 ml/min/1.73 sqM); Potassium 4.6 mmol/L (3.5-5.1); Sodium 141 mmol/L (137-145); Total Bilirubin 0.2 mg/dL (0.2-1.3); Total Protein 7.1 g/dL (6.3-8.2)
[2017-10-19 17:03] LABS: Appearance,Urine Clear (Clear); Bilirubin,Urine Negative (Negative); Glucose,Urine (UA) Negative (Negative); Ketones,Urine Negative (Negative); Leukocyte Esterase,Urine Negative (Negative); Nitrite,Urine Negative (Negative); PH, Urine 6.5 (5.0-8.0); Protein,Urine Negative (Negative); Specific Gravity,Urine 1.003 (1.001-1.035); UA Billing (MACRO vs. MICRO) CHEM; Urobilinogen,Urine <2.0 mg/dL (<2.0)
[2017-10-19 17:12] LABS: INR 1.1 (<1.2); Partial Thromboplastin Time 24.2 sec (22.0-30.0); Prothrombin Time 10.4 sec (9.0-12.0)
[2017-10-19] MEDS ORDERED: Rhogam IMMUNE GLOBULIN 1,500 UNIT/1 ML IM ONE (18:00)
--- NOTE | 2017-10-19 18:00 | US ---
EXAMINATION TYPE: US OB <= 14 wk fetus DATE OF EXAM: 10/19/2017 COMPARISON: US 10/14/17 CLINICAL HISTORY: pain. Bleeding and pelvic pain x 2 hours, 4, para 0, miscarriage 3 EXAM PERFORMED: Transvaginal (TV) and Transabdominal (TA) EXAM MEASUREMENTS: GESTATIONAL AGE / DATING Physician Established: (8 weeks/1 days) EDC: 05/30/2018 Dates by LMP: Unknown Dates by First Scan: (8 weeks/1 days) EDC: 05/30/2018 Dates by Current Scan for: (8 weeks/4 days) EDC: 05/27/2018 MATERNAL ANATOMY Uterus: 8.1 x 5.3 x 5.2cm, anteverted Right Ovary: 2.0 x 1.3 x 1.5cm Left Ovary: 2.0 x 1.8 x 1.7cm Post CDS / Adnexa: wnl Presence of free fluid: no Presence of corpus luteal cyst: not seen Presence of subchorionic bleed: no GESTATION / SURVEY CRL: 1.9cm (8 weeks/3 days) MSD: 3.5cm (8 weeks/4 days) Yolk Sac (normal less than 6mm): not seen Cardiac activity: No heart tones seen at this time Date of LMP: Unknown Beta HcG (if available): Not available at time of exam IMPRESSION: CROWN-RUMP LENGTH MEASURING 1.9 CM, CORRESPONDING WITH 8 WEEKS 3 DAYS GESTATION. NEITHER CARDIAC ACTIVITY NOR YOLK SAC VISUALIZED AT THIS TIME.
[2017-10-19] MEDS ORDERED: MORPHINE SULFATE 2 MG/ML SYRINGE IVP STA (18:15)
[2017-10-19 18:23] VITALS: RESP 17
[2017-10-19] MEDS ORDERED: diphenhydrAMINE 50 MG/ML 1 ML VIAL IVP STA (18:47)
[2017-10-19 19:18] VITALS: BP 128/72; PULSE 72
== END 2017-10-19 19:17 | disposition home or self-care (01) ==
LOC: EC 16:30 → SUPCPDRO 16:30 → EC 19:17
DX: O20.0 Threatened abortion (principal); O02.1 Missed abortion; O99.331 Smoking (tobacco) complicating pregnancy, first trimester; F17.200 Nicotine dependence, unspecified, uncomplicated; Z91.048 Other nonmedicinal substance allergy status; Z88.6 Allergy status to analgesic agent; Z88.0 Allergy status to penicillin; Z91.09 Other allergy status, other than to drugs and biological substances; Z91.018 Allergy to other foods; Z3A.08 8 weeks gestation of pregnancy; Z79.899 Other long term (current) drug therapy
CPT/HCPCS: 36415; 86900; 86901; 80053; 85025; 85610; 85730; 86850; 81003; 81025; 84702; 87086; 76801; 76817; 99285; 96365; 96366; 96375 ×2; 96361; 96372; J2791; J1200; J2270; J0131

== ENCOUNTER 2017-11-24 18:23 | Emergency (ER) | payer OTHER ==
[2017-11-24 18:37] VITALS: RESP 18
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
[2017-11-24 19:46] LABS: Basophils # (A) 0.1 k/uL (0-0.2); Basophils % (A) 1 %; Eosinophils # (A) 0.5 k/uL (0-0.7); Eosinophils % (A) 5 %; HCT 43.5 % (34.0-46.0); HGB 13.9 gm/dL (11.4-16.0); Lymphocytes # (A) 2.5 k/uL (1.0-4.8); Lymphocytes % (A) 23 %; MCH 30.1 pg (25.0-35.0); MCHC 31.9 g/dL (31.0-37.0); MCV 94.2 fL (80.0-100.0); Mean Platelet Volume 8.7; Monocytes # (A) 0.5 k/uL (0-1.0); Monocytes % (A) 5 %; Neutrophils # (A) 6.9 k/uL (1.3-7.7); Neutrophils % (A) 65 %; Platelet Count 279 k/uL (150-450); RBC 4.62 m/uL (3.80-5.40); RDW 13.4 % (11.5-15.5); WBC 10.6 k/uL (3.8-10.6)
[2017-11-24 19:50] LABS: Appearance,Urine Clear (Clear); Bacteria,Urine Rare /hpf; Bilirubin,Urine Negative (Negative); Blood,Urine Moderate (Negative); Color,Urine Light Yellow; Glucose,Urine (UA) Negative (Negative); Ketones,Urine Negative (Negative); Leukocyte Esterase,Urine Negative (Negative); Mucus,Urine Rare /hpf; Nitrite,Urine Negative (Negative); Protein,Urine Negative (Negative); RBC,Urine 1 /hpf (0-5); Specific Gravity,Urine 1.007 (1.001-1.035); Squamous Epithelial Cell,Urine 2 /hpf (0-4); Urobilinogen,Urine <2.0 mg/dL (<2.0); WBC,Urine 1 /hpf (0-5)
[2017-11-24 19:56] LABS: Anion Gap 12 mmol/L; Blood Urea Nitrogen 14 mg/dL (7-17); Calcium 10.5 mg/dL (8.4-10.2); Carbon Dioxide 25 mmol/L (22-30); Chloride 107 mmol/L (98-107); Glucose 85 mg/dL (74-99); Potassium 4.9 mmol/L (3.5-5.1); Sodium 144 mmol/L (137-145)
[2017-11-24 20:13] LABS: HCG,Quantitative Serum <2.4 mIU/mL
--- NOTE | 2017-11-24 20:26 | US ---
EXAMINATION TYPE: US transvaginal DATE OF EXAM: 11/24/2017 COMPARISON: Recent pelvic ultrasound October 19, 2017 CLINICAL HISTORY: Pain. D&C 3-4 weeks ago TECHNIQUE: Transvaginal (TV) Date of LMP: Unknown, EXAM MEASUREMENTS: Uterus: 7.7 x 4.5 x 3.2 cm Endometrial Stripe: 0.2 cm Right Ovary: 3.7 x 1.7 x 2.2 cm Left Ovary: 3.0 x 2.0 x 1.5 cm 1. Uterus: Anteverted wnl 2. Endometrium: wnl 3. Right Ovary: Follicles seen 4. Left Ovary: follicles seen Spectral, color and waveform doppler imaging shows good arterial and venous flow within the ovaries ; . 5. Bilateral Adnexa: wnl 6. Posterior cul-de-sac: no free fluid cervix- wnl Uterus is heterogeneous in appearance. No suspicious thickening or vascularity of endometrium is seen after D&C. Tiny amount of free fluid is seen in pelvic cul-de-sac on 3072. Both ovaries are identified with peripheral follicles. No suspicious extra ovarian adnexal masses are seen. IMPRESSION: No significant finding is seen to account for patient's symptoms.
[2017-11-24 21:21] VITALS: BP 122/69; PULSE 90; TEMP 98
== END 2017-11-24 21:21 | disposition home or self-care (01) ==
LOC: EC 18:23
DX: N92.0 Excessive and frequent menstruation with regular cycle (principal); F17.200 Nicotine dependence, unspecified, uncomplicated; Z91.048 Other nonmedicinal substance allergy status; Z88.6 Allergy status to analgesic agent; Z91.041 Radiographic dye allergy status; Z88.0 Allergy status to penicillin; Z88.5 Allergy status to narcotic agent; Z91.018 Allergy to other foods; Z88.8 Allergy status to other drugs, medicaments and biological substances
CPT/HCPCS: 36415; 76830; 80048; 81001; 84702; 85025; 93975; 99284

== ENCOUNTER → 2017-12-02 | Outpatient (CLI) | payer OTHER ==
[2017-12-02 10:33] LABS: T4, Free (Free Thyroxine) 0.93 ng/dL (0.78-2.19)
[2017-12-02 16:11] LABS: Cardiolipin Ab IgG Interp NEGATIVE (NEGATIVE); Cardiolipin Ab IgM Interp NEGATIVE (NEGATIVE); Cardiolipin IgM Antibody <0.2 U/mL
[2017-12-03 11:37] LABS: Anti-Thrombin III Activity 113 % (79-109)
[2017-12-03 12:42] LABS: Protein C (Activity) 132 % (71-138)
[2017-12-03 13:04] LABS: APTT 46 Sec(s) (<43); APTT 1:1 Mix 40 Sec(s) (<43); Dilute Russell Viper Venom 42 Sec(s) (<44)
[2017-12-03 14:51] LABS: Free Protein S Antigen 93 % (50 - 147)
== END | disposition home or self-care (01) ==
LOC: LABWHC1 08:44
PROVIDERS: ATTEND Obstetrics & Gynecology Maternal & Fetal Medicine
DX: O26.20 Pregnancy care for patient with recurrent pregnancy loss, unspecified trimester (principal); Z3A.00 Weeks of gestation of pregnancy not specified
CPT/HCPCS: 36415; 81220; 81240; 81241; 83036; 84439; 84443; 85300; 85303; 85306; 85613; 85730; 85732; 86146; 86147

== ENCOUNTER → 2018-03-17 | Outpatient (CLI) | payer OTHER | LOC: LABWHC1 16:43 | PROVIDERS: ATTEND Obstetrics & Gynecology | DX: Z34.80 Encounter for supervision of other normal pregnancy, unspecified trimester (principal) | CPT/HCPCS: 36415; 84702; 86850; 86900; 86901 ==

== ENCOUNTER → 2018-03-18 | Outpatient (CLI) | payer OTHER ==
--- NOTE | 2018-03-18 13:22 | US ---
EXAMINATION TYPE: Transabdominal DATE OF EXAM: 02/18/18 COMPARISON: NONE CLINICAL HISTORY: O64.91 Spotting first trimester. Cramping and spotting x 3 days, 5, miscarr iage 4 EXAM PERFORMED: Transabdominal (TA) EXAM MEASUREMENTS: GESTATIONAL AGE / DATING Physician Established: Not established yet Dates by LMP: Unknown Dates by First Scan: This is 1st scan Dates by Current Scan for: ( 7 weeks/2 days) EDC: 11/02/2018 MATERNAL ANATOMY Uterus: 9.3 x 4.1 x 5.2cm, anteverted Right Ovary: 2.9 x 1.7 x 1.7cm Left Ovary: 2.3 x 1.3 x 1.8cm Post CDS / Adnexa: wnl Presence of free fluid: no Presence of corpus luteal cyst: not seen at this time Presence of subchorionic bleed: 1.2 x 0.7 x 1.2cm complex area inferior to gestational sac, possible subchorionic bleed GESTATION / SURVEY CRL: 1.1cm (7 weeks/2 days) Yolk Sac (normal less than 6mm): 3.7mm Heart Rate: 143 bpm Rhythm: Normal IUP: Viable IUP Date of LMP: Unknown Beta HcG (if available): Not available at time of exam Single live intrauterine gestation is seen as gestational sac, yolk sac, and pole are identifie d. Inferior to gestational sac there is small curvilinear fluid collection measuring 1.2 x 0.7 x 1.2 cm felt to reflect small subchorionic hemorrhage towards end of exam. No free fluid is seen in pelvic cul-de-sac. Both ovaries are seen. No suspicious extraovarian adnexal masses are noted. IMPRESSION: Single live intrauterine gestation is seen, mean crown-rump length is 1.1 cm corresponding to a 7 wee k 2 day old fetus.
== END | disposition home or self-care (01) ==
LOC: RADUSWWP 12:33
PROVIDERS: ATTEND Obstetrics & Gynecology
DX: O46.91 Antepartum hemorrhage, unspecified, first trimester (principal); Z3A.01 Less than 8 weeks gestation of pregnancy
CPT/HCPCS: 76801

== ENCOUNTER 2018-03-22 18:31 | Emergency (ER) | payer OTHER ==
[2018-03-22] MEDS ORDERED: SODIUM CHLORIDE 0.9% 1,000 ML IV STA (19:43)
[2018-03-22] MEDS ORDERED: diphenhydrAMINE 50 MG/ML 1 ML VIAL IVP STA (19:43)
[2018-03-22] MEDS ORDERED: METOCLOPRAMIDE 5 MG/ML 2 ML VIAL IVP STA (19:43)
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
[2018-03-22 20:31] LABS: Basophils # (A) 0.1 k/uL (0-0.2); Basophils % (A) 0 %; Eosinophils # (A) 0.3 k/uL (0-0.7); Eosinophils % (A) 3 %; HCT 39.6 % (34.0-46.0); Lymphocytes # (A) 2.3 k/uL (1.0-4.8); Lymphocytes % (A) 20 %; MCH 29.5 pg (25.0-35.0); MCHC 32.9 g/dL (31.0-37.0); MCV 89.7 fL (80.0-100.0); Mean Platelet Volume 8.1; Monocytes # (A) 0.5 k/uL (0-1.0); Monocytes % (A) 5 %; Neutrophils # (A) 8.2 k/uL (1.3-7.7); Neutrophils % (A) 72 %; Platelet Count 252 k/uL (150-450); RBC 4.41 m/uL (3.80-5.40); RDW 13.1 % (11.5-15.5); WBC 11.5 k/uL (3.8-10.6)
[2018-03-22 20:32] LABS: Appearance,Urine Clear (Clear); Bilirubin,Urine Negative (Negative); Blood,Urine Negative (Negative); Color,Urine Light Yellow; Glucose,Urine (UA) Negative (Negative); Ketones,Urine Negative (Negative); Leukocyte Esterase,Urine Negative (Negative); Nitrite,Urine Negative (Negative); Protein,Urine Negative (Negative); Specific Gravity,Urine 1.007 (1.001-1.035); Urobilinogen,Urine <2.0 mg/dL (<2.0)
[2018-03-22 20:39] LABS: ALT 39 U/L (9-52); AST 29 U/L (14-36); Albumin 4.2 g/dL (3.5-5.0); Alkaline Phosphatase 57 U/L (38-126); Amylase 85 U/L (30-110); Anion Gap 13 mmol/L; Blood Urea Nitrogen 10 mg/dL (7-17); Calcium 10.1 mg/dL (8.4-10.2); Carbon Dioxide 23 mmol/L (22-30); Chloride 105 mmol/L (98-107); Glucose 95 mg/dL (74-99); Lipase 70 U/L (23-300); Potassium 4.2 mmol/L (3.5-5.1); Sodium 141 mmol/L (137-145); Total Bilirubin 0.2 mg/dL (0.2-1.3); Total Protein 6.3 g/dL (6.3-8.2)
[2018-03-22] MEDS ORDERED: ACETAMINOPHEN TAB 325 MG TAB PO STA (20:54)
--- NOTE | 2018-03-22 23:40 | US ---
EXAM: US , Transvaginal CLINICAL HISTORY: ITS.REASON US Reason: Pain TECHNIQUE: Real-time transvaginal obstetrical ultrasound of the maternal pelvis and a first trimester with image documentation. Transvaginal imaging was used for better evaluation of the fetus and adnexa. COMPARISON: 03/18/18 FINDINGS: Anteverted uterus measuring 9.2 x 4.4 x 6.3 cm which contains a gestational sac. pole and yolk sac are identified. The pole is 1.6 cm corresponding to 8 weeks 0 day gestational age. heart rate was measured at 170 bpm. Small subchorionic hemorrhage is noted adjacent to the gestational sac. Right ovary is 3.4 x 1.5 x 1.3 cm and contains a 1.2 cm complicated cyst which may be a corpus luteal cyst. Left ovary is 2.6 x 1.4 x 1.4 cm with normal appearance. IMPRESSION: Single live intrauterine with measurements corresponding to 8 weeks 0 day gestational age and heart rate of 170 bpm. Small subchorionic hemorrhage noted adjacent to the gestational sac.
[2018-03-23 00:21] VITALS: BP 127/54; PULSE 72; RESP 20; TEMP 98.2
== END 2018-03-23 00:22 | disposition home or self-care (01) ==
LOC: EC 18:31
DX: O99.611 Diseases of the digestive system complicating pregnancy, first trimester (principal); K52.9 Noninfective gastroenteritis and colitis, unspecified; O20.8 Other hemorrhage in early pregnancy; O99.331 Smoking (tobacco) complicating pregnancy, first trimester; F17.200 Nicotine dependence, unspecified, uncomplicated; Z3A.08 8 weeks gestation of pregnancy; Z88.6 Allergy status to analgesic agent; Z88.0 Allergy status to penicillin; Z91.018 Allergy to other foods; Z91.048 Other nonmedicinal substance allergy status; Z88.8 Allergy status to other drugs, medicaments and biological substances; Z91.09 Other allergy status, other than to drugs and biological substances; Z91.041 Radiographic dye allergy status
CPT/HCPCS: 36415; 80053; 82150; 83690; 85025; 81003; 76801; 76817; 99284; 96374; 96375; 96361 ×4; J1200; J2765

== ENCOUNTER 2018-04-30 21:03 | Emergency (ER) | payer OTHER ==
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
[2018-04-30 22:11] LABS: Basophils % (A) 0 %; Eosinophils # (A) 0.3 k/uL (0-0.7); Eosinophils % (A) 2 %; HCT 35.8 % (34.0-46.0); Lymphocytes # (A) 2.3 k/uL (1.0-4.8); Lymphocytes % (A) 19 %; MCH 30.3 pg (25.0-35.0); MCHC 33.5 g/dL (31.0-37.0); MCV 90.3 fL (80.0-100.0); Mean Platelet Volume 7.9; Monocytes # (A) 0.5 k/uL (0-1.0); Monocytes % (A) 4 %; Neutrophils # (A) 9.2 k/uL (1.3-7.7); Neutrophils % (A) 74 %; Platelet Count 261 k/uL (150-450); RBC 3.96 m/uL (3.80-5.40); RDW 13.1 % (11.5-15.5); WBC 12.4 k/uL (3.8-10.6)
[2018-04-30 22:13] LABS: Appearance,Urine Clear (Clear); Bilirubin,Urine Negative (Negative); Blood,Urine Negative (Negative); Color,Urine Light Yellow; Glucose,Urine (UA) Negative (Negative); Ketones,Urine Negative (Negative); Leukocyte Esterase,Urine Negative (Negative); Nitrite,Urine Negative (Negative); PH, Urine 6.5 (5.0-8.0); Protein,Urine Negative (Negative); Specific Gravity,Urine 1.008 (1.001-1.035); Urobilinogen,Urine <2.0 mg/dL (<2.0)
[2018-04-30 22:16] LABS: ALT 29 U/L (9-52); AST 19 U/L (14-36); Albumin 4.4 g/dL (3.5-5.0); Alkaline Phosphatase 54 U/L (38-126); Amylase 80 U/L (30-110); Anion Gap 13 mmol/L; Blood Urea Nitrogen 10 mg/dL (7-17); Calcium 10.2 mg/dL (8.4-10.2); Carbon Dioxide 19 mmol/L (22-30); Chloride 108 mmol/L (98-107); Glucose 101 mg/dL (74-99); Lipase 60 U/L (23-300); Potassium 4.2 mmol/L (3.5-5.1); Sodium 140 mmol/L (137-145); Total Bilirubin 0.1 mg/dL (0.2-1.3); Total Protein 6.6 g/dL (6.3-8.2)
--- NOTE | 2018-04-30 23:35 | US ---
EXAMINATION TYPE: Transabdominal DATE OF EXAM: 02/18/18 COMPARISON: NONE CLINICAL HISTORY: Pain, RLQ. RLQ pain EXAM PERFORMED: Transabdominal (TA) EXAM MEASUREMENTS: GESTATIONAL AGE / DATING Physician Established: (12 weeks/6 days) EDC: 11/06/2018 Dates by LMP: (12 weeks/6 days) EDC: 11/06/2018 Dates by First Scan: (8 weeks/0 days) EDC: 11/03/2018 Dates by Current Scan for: (12 weeks/6 days) EDC: 11/06/2018 MATERNAL ANATOMY Uterus: 12.1 x 7.0 x 8.4 cm Right Ovary: 3.0 x 1.9 x 3.3 cm Left Ovary: 2.3 x 1.9 x 2.1 cm Post CDS / Adnexa: wnl Presence of free fluid: no Presence of corpus luteal cyst: no Presence of subchorionic bleed: no GESTATION / SURVEY CRL: 6.5 cm (12 weeks/6 days) Heart Rate: 154 bpm Rhythm: Normal IUP: Viable IUP Beta HcG (if available): Not available at this time Viable IUP 12w6d GRISELDA 11/06/2018 HR 154 BPM IMPRESSION: The ultrasound gestational age is 12 weeks 6 days. No complicating process seen.
[2018-04-30] MEDS ORDERED: ACETAMINOPHEN TAB 325 MG TAB PO STA (23:48)
[2018-04-30 23:53] VITALS: BP 129/59; PULSE 68; RESP 16; TEMP 98.9
[2018-05-02 13:31] LABS: C. trachomatis,PCR Negative (Neg,Equiv); Chlamydia trachomatis Source Vagina
[2018-05-02 13:34] LABS: N. gonorrhoeae,PCR Negative (Neg,Equiv); Neisseria Source Vagina
== END 2018-05-01 01:05 | disposition home or self-care (01) ==
LOC: EC 21:03
DX: O26.891 Other specified pregnancy related conditions, first trimester (principal); R10.31 Right lower quadrant pain; O99.331 Smoking (tobacco) complicating pregnancy, first trimester; F17.200 Nicotine dependence, unspecified, uncomplicated; Z3A.12 12 weeks gestation of pregnancy; Z88.6 Allergy status to analgesic agent; Z91.018 Allergy to other foods; Z88.0 Allergy status to penicillin; Z91.048 Other nonmedicinal substance allergy status; Z88.8 Allergy status to other drugs, medicaments and biological substances; Z91.041 Radiographic dye allergy status
CPT/HCPCS: 36415; 76801; 80053; 81003; 81025; 82150; 83690; 85025; 87491; 87591; 99284

== ENCOUNTER → 2018-06-03 | Outpatient (CLI) | payer OTHER | END | disposition home or self-care (01) | LOC: FBPOP 23:45 | PROVIDERS: ATTEND Obstetrics & Gynecology | DX: Z53.9 Procedure and treatment not carried out, unspecified reason (principal) ==

== ENCOUNTER → 2018-07-02 | Outpatient (CLI) | payer OTHER ==
[2018-07-02 17:33] LABS: Appearance,Urine Clear (Clear); Bacteria,Urine Rare /hpf; Bilirubin,Urine Negative (Negative); Blood,Urine Negative (Negative); Color,Urine Yellow; Glucose,Urine (UA) Negative (Negative); Ketones,Urine Negative (Negative); Leukocyte Esterase,Urine Small (Negative); Mucus,Urine Rare /hpf; Nitrite,Urine Negative (Negative); PH, Urine 6.5 (5.0-8.0); Protein,Urine Trace (Negative); RBC,Urine 1 /hpf (0-5); Specific Gravity,Urine 1.017 (1.001-1.035); Squamous Epithelial Cell,Urine 3 /hpf (0-4); Urobilinogen,Urine <2.0 mg/dL (<2.0); WBC,Urine 4 /hpf (0-5)
== END | disposition home or self-care (01) ==
LOC: LABWHC1 17:04
PROVIDERS: ATTEND Obstetrics & Gynecology
DX: N39.0 Urinary tract infection, site not specified (principal)
CPT/HCPCS: 81001; 87086

== ENCOUNTER 2018-07-10 02:19 | Outpatient (CLI) | payer OTHER ==
--- NOTE | 2018-07-10 04:40 | US ---
EXAMINATION TYPE: US OB >= 14 wk fetus DATE OF EXAM: 07/10/2018 COMPARISON: None CLINICAL HISTORY: fall, abd painPatient feel abd pain. TECHNIQUE: Transabdominal (TA) GESTATIONAL AGE / DATING Physician Established: (23 weeks/0 days) EDC: 11/06/2018 Dates by LMP: (23 weeks/0 days) EDC: 11/06/2018 Dates by First Scan: (7 weeks/2 days) EDC: 11/02/2018 Dates by Current Scan: (23 weeks/6 days) EDC: 10/31/2018 SURVEY IUP: Single PLACENTA: Anterior PREVIA: No Previa NIELS: 9.7 cm Normal CERVICAL LENGTH (transabdominal: norm > 3.0cm): 3.2 cm BIOMETRY PRESENTATION: Breech LIE: Longitudinal BPD: 5.95 cm 24 weeks / 2 days HC: 22.31 cm 24 weeks / 2 days AC: 20.01 cm 24 weeks / 5 days FL: 4.22 cm 23 weeks / 5 days ESTIMATED WEIGHT IN GRAMS: 678.47 grams ESTIMATED WEIGHT IN LBS/OZ: 1 lbs. 8 oz. WEIGHT PERCENTAGE BASED ON ESTABLISHED DATES: 93.8% HC/AC: 1.11CM Normal FL/AC: 70.82 CM Normal HEART RATE: 174 bpm RHYTHM: Normal Viable IUP 23w6d GRISELDA 10/31/2018 HR 174 BPM IMPRESSION: The ultrasound gestational age is 23 weeks 6 days. No complicating process seen. There is normal grow th compared to the first exam of 03/18/2018.
[2018-07-10 05:19] VITALS: RESP 18
[2018-07-10 05:22] VITALS: BP 118/52; PULSE 75; TEMP 97.2
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
== END 2018-07-10 05:15 | disposition home or self-care (01) ==
LOC: FBPOP 02:19
PROVIDERS: ATTEND Obstetrics & Gynecology
DX: O99.89 Other specified diseases and conditions complicating pregnancy, childbirth and the puerperium (principal); G89.11 Acute pain due to trauma; Z3A.23 23 weeks gestation of pregnancy
CPT/HCPCS: 84112; 76805; G0463; 99215

== ENCOUNTER 2018-09-02 16:31 | Outpatient (CLI) | payer OTHER ==
[2018-09-02 18:22] LABS: Basophils # (A) 0.1 k/uL (0-0.2); Basophils % (A) 0 %; Eosinophils # (A) 0.3 k/uL (0-0.7); Eosinophils % (A) 2 %; HCT 35.2 % (34.0-46.0); HGB 11.5 gm/dL (11.4-16.0); Lymphocytes # (A) 2.6 k/uL (1.0-4.8); Lymphocytes % (A) 18 %; MCH 30.4 pg (25.0-35.0); MCHC 32.8 g/dL (31.0-37.0); MCV 92.7 fL (80.0-100.0); Mean Platelet Volume 7.9; Monocytes # (A) 0.7 k/uL (0-1.0); Monocytes % (A) 5 %; Neutrophils # (A) 10.7 k/uL (1.3-7.7); Neutrophils % (A) 73 %; Platelet Count 302 k/uL (150-450); RBC 3.79 m/uL (3.80-5.40); RDW 13.4 % (11.5-15.5); WBC 14.6 k/uL (3.8-10.6)
[2018-09-02 18:46] LABS: Amorphous Sediment,Urine Rare /hpf; Appearance,Urine Clear (Clear); Bacteria,Urine Occasional /hpf; Bilirubin,Urine Negative (Negative); Blood,Urine Negative (Negative); Color,Urine Light Yellow; Glucose,Urine (UA) Negative (Negative); Hyaline Casts,Urine 3 /lpf (0-2); Ketones,Urine Negative (Negative); Leukocyte Esterase,Urine Small (Negative); Nitrite,Urine Negative (Negative); Protein,Urine Negative (Negative); RBC,Urine 1 /hpf (0-5); Specific Gravity,Urine 1.007 (1.001-1.035); Squamous Epithelial Cell,Urine 3 /hpf (0-4); Urobilinogen,Urine <2.0 mg/dL (<2.0); WBC,Urine 2 /hpf (0-5)
--- NOTE | 2018-09-02 18:52 | US ---
EXAMINATION TYPE: US OB >= 14 wk fetus DATE OF EXAM: 09/02/2018 COMPARISON: Several US's CLINICAL HISTORY: abd pain TECHNIQUE: Transabdominal (TA) GESTATIONAL AGE / DATING Physician Established: (30/ weeks/5 days) EDC: 11/06/2018 Dates by LMP: (30 weeks/5 days) EDC: 11/06/2018 Dates by First Scan: (31 weeks/2 days) EDC: 11/03/2018 Dates by Current Scan: (31 weeks/3 days) EDC: 11/01/2018 SURVEY IUP: Single PLACENTA: Fundal PREVIA: No Previa NIELS: 16.6 cm Normal CERVICAL LENGTH (transabdominal: norm > 3.0cm): 3.4 cm BIOMETRY PRESENTATION: Vertex BPD: 7.9 cm 32 weeks / 0 days HC: 28.9 cm 31 weeks / 6 days AC: 27.8 cm 31 weeks / 6 days FL: 6.0 cm 31 weeks / 3 days ESTIMATED WEIGHT IN GRAMS: 1827 grams ESTIMATED WEIGHT IN LBS/OZ: 4 lbs. 0 oz. WEIGHT PERCENTAGE BASED ON ESTABLISHED DATES: 73% HC/AC: 1.0 Normal FL/AC: 21.7 Normal HEART RATE: 137 bpm RHYTHM: Normal MATERNAL WALL MEASUREMENT: cm from skin to anterior uterine wall (if exam limited due to body habitus ). growth according to dates. No abnormality seen to account for patient's abdomen pain. IMPRESSION: There is satisfactory growth compared to first exam of 03/18/2018. No complicating process seen.
--- NOTE | 2018-09-02 18:54 | US ---
EXAMINATION TYPE: US kidneys/renal and bladder DATE OF EXAM: 09/02/2018 COMPARISON: NONE CLINICAL HISTORY: abd pain ? Kidneys stones, ? appendix. EXAM MEASUREMENTS: Right Kidney: 10.7 x 4.3 x 4.7 cm Left Kidney: 11.2 x 6.2 x 6.2 cm Right Kidney: mild hydro seen, there is a 0.7 x 0.6 cm echogenic focus, possible stone. Left Kidney: No hydronephrosis or masses seen Bladder: wnl Bilateral Jets seen: No IMPRESSION: There is right-sided hydronephrosis with calculus in the interpolar right kidney.
[2018-09-02 20:34] VITALS: BP 126/75; PULSE 67; RESP 16; TEMP 98.5
== END 2018-09-02 20:15 | disposition home or self-care (01) ==
LOC: FBPOP 16:31
PROVIDERS: ATTEND Obstetrics & Gynecology
DX: O99.89 Other specified diseases and conditions complicating pregnancy, childbirth and the puerperium (principal); R10.9 Unspecified abdominal pain; N20.0 Calculus of kidney; N13.30 Unspecified hydronephrosis; Z3A.31 31 weeks gestation of pregnancy
CPT/HCPCS: 59025; 85025; 81001; 76805; 76770; G0463; 99213

== ENCOUNTER 2018-10-11 21:10 | Outpatient (CLI) | payer OTHER ==
[2018-10-11 22:25] VITALS: BP 135/72; PULSE 74; RESP 16; TEMP 97.7
--- NOTE | 2018-10-12 12:47 | P.MSEPDOC ---
Presenting Problems - Arrival Data Date of Arrival on Unit: 10/11/18 Time of Arrival on Unit: 21:10 Mode of Transport: Ambulatory - Complaint OB-Reason for Admission/Chief Complaint: Rule Out SROM Comment: 2100 clear Medical History - Information : 5 Para: 0 Term: 0 : 0 Abortions: Spontaneous or Elective: 0 Number of Living Children: 0 - Gestational Age Gestational Age by GRISELDA (wks/days): 36 Weeks and 6 Days - History Complications: Smoker Review of Systems - Review of Systems Constitutional: No problems Breast: No problems ENT: No problems Cardiovascular: No problems Respiratory: No problems Gastrointestinal: No problems Genitourinary: No problems Musculoskeletal: No problems Neurological: No problems Skin: No problems Vital Signs - Temperature Temperature: 97.7 F Temperature Source: Temporal Artery Scan - Pulse Right Brachial Pulse Rate: 74 Pulse Assessment Method: Automatic Cuff - Respirations Respiratory Rate: 16 Oxygen Delivery Method: Room Air O2 Sat by Pulse Oximetry: 98 - Blood Pressure Right Arm Sitting Blood Pressure: 135/72 Blood Pressure Mean: 93 Blood Pressure Source: Automatic Cuff Medical Screen Scoring (Pre) - Cervical Exam Dilation: 1-3 cm = 1 Effacement: More than 50% = 2 Membranes: Intact - Uterine Contractions Frequency: N/A Duration: N/A Intensity: N/A - Maternal Vital Signs Maternal Temperature: N/A Maternal Blood Pressure: N/A Signs of Preeclampsia: N/A Maternal Respirations: N/A - Total Score Total Score (Pre): 3 - Level of Risk Level of Risk: Low (0-5) Physician Notification (Pre) - Physician Notified Physician Notified Date: 10/11/18 Physician Notified Time: 21:08 Spoke With: Minor Lee Order Received: Yes (Discharge to home) - Notification Comment Comment: 2 negative amnisures Medical Screen Scoring (Post) - Cervical Exam Dilation: 1-3 cm = 1 Membranes: Intact - Uterine Contractions Frequency: N/A - Assessment Heart Rate: 125 Heart Rate - NICHD Category: Category I (Normal) = 0 NST: Reactive Position: N/A - Total Score Total Score (Post): 1 - Post Treatment Level of Risk Post Treatment Level of Risk: Low (0-5) Physician Notification (Post) - Notification Comment Comment: 2 negative amnisures Disposition - Disposition OB Disposition: Discharge to home Discharge Date: 10/11/18 Discharge Time: 22:15 I agree with the RN Medical Screening Exam: Yes Risk & Benefit of care provided described in d/c instruction: Yes Diagnosis: FALSE LABOR BEFORE 37 COMPLETED WEEKS OF GEST, THIRD TRI
== END 2018-10-11 22:15 | disposition home or self-care (01) ==
LOC: FBPOP 21:10
PROVIDERS: ATTEND Obstetrics & Gynecology
DX: O47.03 False labor before 37 completed weeks of gestation, third trimester (principal); O99.333 Smoking (tobacco) complicating pregnancy, third trimester; Z3A.36 36 weeks gestation of pregnancy
CPT/HCPCS: 59025; 84112; G0463; 99213

== ENCOUNTER 2018-10-27 06:15 | Inpatient (IN) | payer OTHER ==
--- NOTE | 2018-10-26 16:52 | P.HPOB ---
History of Present Illness H&P Date: 10/26/18 Chief Complaint: Induction of labor This is a 23-year-old female 5 para 0 with an estimated date of confinement of 11/02/2018, estimated gestational age of 39 and one sevenths weeks, who presents to labor and delivery for induction of labor. She admits to good movement. She has been feeling irregular contractions. She complains of pelvic pain and pelvic pressure. labs: Hepatitis B surface antigen-negative RPR-nonreactive Rubella-immune Blood type-O- HIV-nonreactive Hemoglobin-11.8 Random glucose-86 Quad screen-negative One hour Glucola-139 Three-hour Glucola-within normal limits group B streptococcus-negative Obstetrical history: . History of 4 miscarriages. Gynecologic history: History of genital warts at age 19. Social history: She is . Review of Systems Constitutional: Denies chills, Denies fever Eyes: denies blurred vision, denies pain Ears, nose, mouth and throat: Denies headache, Denies sore throat Cardiovascular: Denies chest pain, Denies shortness of breath Respiratory: Denies cough Gastrointestinal: Reports abdominal pain (Irregular contractions) Genitourinary: Reports pelvic pain, Reports Integumentary: Denies pruritus, Denies rash Neurological: Denies numbness, Denies weakness Past Medical History Past Medical History: No Reported History History of Any Multi-Drug Resistant Organisms: None Reported Past Surgical History: No Surgical Hx Reported Additional Past Surgical History / Comment(s): D&C, Past Anesthesia/Blood Transfusion Reactions: No Reported Reaction Past Psychological History: No Psychological Hx Reported Smoking Status: Former smoker Past Alcohol Use History: None Reported Past Drug Use History: None Reported - Past Family History Mother Family Medical History: Diabetes Mellitus, Hypertension Medications and Allergies Home Medications Medication Instructions Recorded Confirmed Type Pnv,Calcium 72/Iron/Folic Acid 1 tab PO DAILY 04/30/18 10/11/18 History [ Plus Tablet] Allergies Allergy/AdvReac Type Severity Reaction Status Date / Time adhesive tape Allergy Rash/Hives Verified 10/11/18 21:26 aspirin Allergy Rash/Hives Verified 10/11/18 21:26 Gadolinium-Containing Allergy Chest Pain Verified 10/11/18 21:26 Contrast Medi iodine Allergy Anaphylaxis Verified 10/11/18 21:26 naproxen Allergy Rash/Hives Verified 10/11/18 21:26 Penicillins Allergy Anaphylaxis Verified 10/11/18 21:26 wool Allergy Rash/Hives Verified 10/11/18 21:26 tomato AdvReac Nausea & Verified 10/11/18 21:26 Vomiting chlorine Allergy Rash/Hives Uncoded 03/22/18 19:20 chlorophyll Allergy Unknown Uncoded 03/22/18 19:20 dust Allergy Wheezing Uncoded 03/22/18 19:20 pet dander Allergy Wheezing Uncoded 03/22/18 19:20 Exam Osteopathic Statement: *. No significant issues noted on an osteopathic structural exam other than those noted in the History and Physical/Consult. HEENT: Within normal limits Heart: Regular rate and rhythm Lungs: Clear to auscultation bilaterally Abdomen: Cervix: 3 cm/60%/-1 station heart tones: 140s by Doppler Extremities: Negative Homans Assessment and Plan (1) 39 weeks gestation of Status: Acute Code(s): Z3A.39 - 39 WEEKS GESTATION OF SNOMED Code( s): 27349648 Plan: Proceed with oxytocin induction of labor. Expectant management. Epidural anesthesia if desired.
[2018-10-27] MEDS ORDERED: LIDOCAINE 1% 20 ML VIAL (10MG/ML) FOR IV START INTRADERMA PRN (06:26)
[2018-10-27] MEDS ORDERED: OXYTOCIN 20 UNITS/1000 ML NS 1,000 ML IV SCH ×2 (06:26→23:17)
[2018-10-27] MEDS ORDERED: CARBOPROST TROMETHAMINE 250 MCG/ML 1 ML AMP IM PRN (06:26)
[2018-10-27] MEDS ORDERED: OXYTOCIN 10 UNIT/ML 1 ML VIAL IM PRN (06:26)
[2018-10-27] MEDS ORDERED: TERBUTALINE 1 MG/ML VIAL SQ PRN (06:26)
[2018-10-27] MEDS ORDERED: METHYLERGONOVINE 0.2 MG/ML 1 ML AMP IM PRN (06:26)
[2018-10-27] MEDS ORDERED: LIDOCAINE 0.5% (PF) 5 MG/ML (50 ML SDV) SQ PRN (06:26)
[2018-10-27 06:32] VITALS: BMI 33.7
[2018-10-27] MEDS: LACTATED RINGERS 1,000 ML IV SCH ×7 (06:45→23:59)
[2018-10-27 06:54] LABS: Basophils # (A) 0.1 k/uL (0-0.2); Basophils % (A) 1 %; Eosinophils # (A) 0.2 k/uL (0-0.7); Eosinophils % (A) 2 %; HCT 36.2 % (34.0-46.0); HGB 11.8 gm/dL (11.4-16.0); Lymphocytes # (A) 3.5 k/uL (1.0-4.8); Lymphocytes % (A) 25 %; MCH 29.4 pg (25.0-35.0); MCHC 32.5 g/dL (31.0-37.0); MCV 90.6 fL (80.0-100.0); Mean Platelet Volume 8.1; Monocytes # (A) 0.7 k/uL (0-1.0); Monocytes % (A) 5 %; Neutrophils # (A) 8.9 k/uL (1.3-7.7); Neutrophils % (A) 66 %; Platelet Count 324 k/uL (150-450); RDW 14.3 % (11.5-15.5); WBC 13.6 k/uL (3.8-10.6)
[2018-10-27] MEDS ORDERED: SODIUM CHLORIDE 0.9% 100 ML BAG ONE (10:00)
[2018-10-27] MEDS ORDERED: fentaNYL (PF) 50 MCG/ML 5 ML AMP ONE (10:00)
[2018-10-27] MEDS ORDERED: ROPIVACAINE 5MG/ML 20ML VIAL ONE (10:00)
[2018-10-27] MEDS ORDERED: CITRIC ACID-SODIUM CITRATE 15 ML CUP PO ONE ×2 (21:54)
[2018-10-27] MEDS ORDERED: CLINDAMYCIN 900 MG in DEXTROSE 5% IN WATER 50 ML IVPB STA ×2 (21:55)
[2018-10-27] MEDS ORDERED: ONDANSETRON 4 MG/2 ML VIAL ONE (22:00)
[2018-10-27] MEDS ORDERED: fentaNYL (PF) 50 MCG/ML 2 ML AMP ONE (22:00)
[2018-10-27] MEDS ORDERED: MORPHINE SULFATE (PF) 0.3 MG/0.3 ML SYR ONE (22:00)
[2018-10-27] MEDS ORDERED: OXYTOCIN 10 UNIT/ML 1 ML VIAL ONE (22:00)
--- NOTE | 2018-10-27 22:57 | P.OP ---
Date of Procedure: 10/27/18 Preoperative Diagnosis: 1. Intrauterine at 39 and one sevenths weeks. 2. Arrest of dilatation. 3. bradycardia. Postoperative Diagnosis: Same Procedure(s) Performed: Primary low transverse section Anesthesia: epidural (With Duramorph) Surgeon: Mireille Gaxiola Wet Process Assistant Head Miller #1: Ailyn Brown Estimated Blood Loss (ml): 400 Pathology: other (Placenta) Condition: stable Disposition: floor Indications for Procedure: This is a 23-year-old female 5 para 0 at 39 and one sevenths weeks who presented for induction of labor. She underwent oxytocin induction of labor and reached approximately 8-1/2 cm. Her oxytocin did have to be turned off at least 3 times due to decelerations. The last time her heart tones went down to 70s to 80s for almost 5 minutes with slow return to baseline. At this point in time the decision was made to proceed with section secondary to bradycardia and arrest of dilatation since she had been the same dilation for at least 4 hours. I have discussed the risks, benefits, and alternative therapies for the above- mentioned procedure and for both sedation/anesthesia as well as necessary blood products administration, if indicated, as they pertain to this patient. The patient has indicated her understanding and acceptance of the risks and procedures discussed. Operative Findings: A viable female infant is noted in the vertex presentation with nuchal cord times one and Apgars of 8 at 1 minute and 9 at 5 minutes. Infant weight was 7 lbs. 7 oz. Normal uterus tubes and ovaries are noted. Description of Procedure: The patient is taken to the operating room where she is placed in the dorsal supine position with leftward tilt after epidural anesthesia is bolused. She is prepped and draped in the normal sterile fashion. Skin was tested and found to be adequately anesthetized. A Pfannenstiel skin incision was made with a scalpel. A second knife was used to carry the incision down to the underlying layer of fascia. The fascia was nicked in the midline with a scalpel and then extended laterally bilaterally with Ivan scissors. The anterior lip of the fascia was grasped with 2 Jules clamps and then dissected off the underlying rectus muscle in the midline with Ivan scissors. The inferior aspect of the fascial incision was grasped with 2 Jules clamps and dissected off the underlying rectus muscle and the midline with Ivan scissors. Next the peritoneum layer was tented up with 2 hemostats and then entered sharply with the scalpel. The incision is extended superiorly and inferiorly with Metzenbaum scissors. Next a DeLee retractor is placed. The vesicouterine peritoneum is entered sharply with Metzenbaum scissors and extended laterally bilaterally with Metzenbaum scissors and then the bladder flap is pushed inferiorly. The lower uterine segment is incised in transverse fashion with the scalpel and then bluntly entered with a hemostat. Clear fluid is noted. The incision was then extended laterally bilaterally with 2 fingers. Next the infant's head is delivered through the incision. Nose and mouth are bulb suctioned. Nuchal cord times one was reduced around the 's head. The remainder of the is easily delivered and placed on mother's abdomen. Cord is clamped and cut. Infant is taken to warmer by nursing staff. Uterine fundus is gently massaged and placenta is delivered manually. Uterus is exteriorized and cleared of all clots and debris. Uterine incision is closed with 0 Vicryl suture in a running locked fashion. A second layer of 0 Vicryl suture is used in a running fashion for hemostasis. Once adequate hemostasis as assured, the vesicouterine peritoneum is reapproximated with 2-0 Vicryl suture in a running fashion. Posterior cul-de-sac is suctioned of all clots and debris. Uterus is returned to the abdomen. Incision is noted to be hemostatic. Peritoneal layer is closed with 0 Vicryl suture in a running fashion. Muscle layer is reapproximated with 0 Vicryl suture in interrupted fashion. Fascia layer is then closed with 0 PDS suture with 2 sutures meeting in the midline and the knots buried in either side and in the midline. The subcutaneous tissue was then closed with 2-0 Vicryl suture. Skin layer was then closed with anitha. All sponge and needle counts are correct. The patient is taken to recovery room in stable condition.
[2018-10-27] MEDS ORDERED: NALOXONE 0.4 MG/ML 1 ML VIAL IV PRN (23:17)
[2018-10-27] MEDS ORDERED: ACETAMINOPHEN TAB 325 MG TAB PO PRN (23:17)
[2018-10-27] MEDS ORDERED: LANOLIN CREAM 5 GM TUBE TOPICAL PRN (23:17)
[2018-10-27] MEDS ORDERED: METOCLOPRAMIDE 5 MG/ML 2 ML VIAL IVP PRN (23:17)
[2018-10-27] MEDS ORDERED: diphenhydrAMINE 25 MG CAP PO PRN (23:17)
[2018-10-27] MEDS ORDERED: diphenhydrAMINE 50 MG/ML 1 ML VIAL IVP PRN ×2 (23:17)
[2018-10-27] MEDS ORDERED: ONDANSETRON 4 MG/2 ML VIAL IVP PRN (23:17)
[2018-10-27] MEDS ORDERED: diphenhydrAMINE 50 MG CAP PO PRN (23:17)
[2018-10-27] MEDS ORDERED: ZOLPIDEM 5 MG TAB PO PRN (23:17)
[2018-10-27] MEDS: HYDROmorphone PCA 5 MG/25 ML SYRINGE IV PRN (23:59)
--- NOTE | 2018-10-28 06:59 | P.PN ---
Progress Note - Text Progress Note Date: 10/28/18 Patient is status post section with epidural morphine 3 mg. Ambulating well, no motor sensory deficits. No complaints of pruritus. VAS is a 2 out of 10 in severity.
[2018-10-28 08:07] LABS: Basophils # (A) 0.1 k/uL (0-0.2); Basophils % (A) 0 %; Eosinophils # (A) 0.1 k/uL (0-0.7); Eosinophils % (A) 1 %; HCT 32.7 % (34.0-46.0); HGB 10.3 gm/dL (11.4-16.0); Lymphocytes # (A) 1.9 k/uL (1.0-4.8); Lymphocytes % (A) 11 %; MCH 28.6 pg (25.0-35.0); MCHC 31.5 g/dL (31.0-37.0); MCV 90.8 fL (80.0-100.0); Mean Platelet Volume 8.2; Monocytes # (A) 0.8 k/uL (0-1.0); Monocytes % (A) 4 %; Neutrophils # (A) 14.7 k/uL (1.3-7.7); Neutrophils % (A) 82 %; Platelet Count 273 k/uL (150-450); RDW 14.1 % (11.5-15.5); WBC 17.9 k/uL (3.8-10.6)
--- NOTE | 2018-10-28 09:52 | P.PNOBGPC ---
Subjective - Subjective Principal diagnosis: Status post delivery postoperative day #1 Interval history: Patient is doing okay. She has been ambulating to the restroom and has urinated. He is not passing flatus or bowel movement yet. Her pain is fairly well controlled with MANAGER WIND pump. Lochia is moderate. Patient reports: Reports appetite normal, Reports voiding normally, Reports pain well controlled, Reports ambulating normally [place]: doing well Objective - Vital Signs Latest vital signs: Vital Signs Temp Pulse Resp BP Pulse Ox 10/28/18 04:00 98 F 77 15 132/63 10/28/18 00:53 98 F 69 15 109/58 10/28/18 00:23 75 15 121/67 97 10/27/18 23:53 98.9 F 77 15 139/51 98 10/27/18 23:38 96 15 142/72 98 10/27/18 23:23 90 15 131/71 10/27/18 23:08 72 15 132/70 98 10/27/18 22:53 98.4 F 90 15 120/67 99 Intake and Output 10/27/18 10/28/18 10/28/18 22:59 06:59 14:59 Output Total 900 1800 Balance -900 -1800 Output: Urine 500 1800 Straight 300 1000 Estimated Blood Loss 400 Other: # Voids 1 - Exam Extremities: Present: normal. Absent: tenderness Abdomen: Present: normal appearance, soft (Positive bowel sounds 4). Absent: distention, tenderness Incision: Present: normal, dry, intact. Absent: erythematous Uterus: Present: normal, firm. Absent: tenderness - Labs Labs: Abnormal Lab Results - Last 24 Hours (Table) 10/28/18 Range/Units 07:47 WBC 17.9 H (3.8-10.6) k/uL RBC 3.60 L (3.80-5.40) m/uL Hgb 10.3 L (11.4-16.0) gm/dL Hct 32.7 L (34.0-46.0) % Neutrophils # 14.7 H (1.3-7.7) k/uL Assessment and Plan Assessment: Impression is status post primary section postoperative day #1 (1) 39 weeks gestation of Current Visit: No Status: Acute Code(s): Z3A.39 - 39 WEEKS GESTATION OF SNOMED Code(s): 81069812 Plan: Continue with postoperative care. Will advance diet as tolerated after flatus. Encouraged ambulation. Will discontinue MANAGER WIND pump later today and switch to oral pain medication.
[2018-10-28] MEDS: HYDROmorphone PCA 5 MG/25 ML SYRINGE IV PRN (11:19)
[2018-10-28] MEDS: LACTATED RINGERS 1,000 ML IV SCH ×2 (11:24→16:26)
[2018-10-28] MEDS: IBUPROFEN 600 MG TAB PO PRN (16:25)
[2018-10-28] MEDS: SENNOSIDES-DOCUSATE SODIUM 1 EACH TAB PO SCH ×2 (17:02→20:56)
[2018-10-28] MEDS ORDERED: Rhogam IMMUNE GLOBULIN 1,500 UNIT/1 ML IM ONE (17:26)
[2018-10-29] MEDS: IBUPROFEN 600 MG TAB PO PRN ×2 (00:50→06:43)
[2018-10-29 07:29] VITALS: BP 127/68; PULSE 69; RESP 16; TEMP 98.1
[2018-10-29] MEDS: SENNOSIDES-DOCUSATE SODIUM 1 EACH TAB PO SCH (07:30)
[2018-10-29] MEDS ORDERED: HYDROcodone/APAP 5-325MG 1 EACH TAB PO PRN (08:44)
--- NOTE | 2018-10-29 08:44 | P.DS ---
Providers Date of admission: 10/27/18 06:18 Expected date of discharge: 10/29/18 Attending physician: Mireille Gaxiola Primary care physician: Stated None - Discharge Diagnosis(es) (1) 39 weeks gestation of Current Visit: No Status: Acute Hospital Course: This is a 23-year-old female 5 para 0 at 39 and one sevenths weeks who presented for induction of labor. She underwent oxytocin induction of labor and then ended up with a section for failure to progress and bradycardia. She delivered a viable female with scores of 8 at 1 minute and 9 at 5 minutes and weight of 7 lbs. 7 oz. via primary low transverse section on 10/27/2018. Her course is been uncomplicated. She is passing flatus but no bowel movement yet. Her pain is been well controlled with initially with a MOTOR TRANSPORT INSPECTOR pump and now she is switched to ibuprofen. We will add [place] to use for breakthrough pain. Lochia is decreasing. She is working on breast-feeding. Vital signs are stable. Abdomen is soft with positive bowel sounds 4. Incision is clean dry and intact with anitha in place. Extremities show negative Hom[place]. Impression is status post primary low transverse section postoperative day #2. Plan is to discharge home later today. She will be given prescriptions for ibuprofen and [place]. She has signed the opioid start talking form. She will be given a seven-day supply of [place]. She is instructed to follow-up in the office in 1 week for a postoperative check and in 6 weeks for check. Anitha will be removed and Steri-Strips placed prior to discharge. Routine instructions and postoperative instructions are given. She listed naproxen as an ALLERGY however she has been tolerating ibuprofen without difficulty. She is advised to call the office if she has any further questions or concerns prior to her appointment time. Procedures: Oxytocin induction of labor Primary low transverse section on 10/27/2018 with delivery of a viable female . Patient Condition at Discharge: Stable Plan - Discharge Summary New Discharge Prescriptions: New HYDROcodone/APAP 5-325MG [[place] 5-325] 1 tab PO Q4HR PRN 7 Days #42 tab PRN Reason: Moderate To Severe Pain Ibuprofen [Motrin] 600 mg PO QID PRN #60 tab PRN Reason: Pain Continue Pnv,Calcium 72/Iron/Folic Acid [ Plus Tablet] 1 tab PO DAILY Discharge Medication List Pnv,Calcium 72/Iron/Folic Acid [ Plus Tablet] 1 tab PO DAILY 04/30/18 [ History] HYDROcodone/APAP 5-325MG [[place] 5-325] 1 tab PO Q4HR PRN 7 Days #42 tab [Rx] Ibuprofen [Motrin] 600 mg PO QID PRN #60 tab 10/29/18 [Rx] Follow up Appointment(s)/Referral(s): Mireille Gaxiola DO [Doctor of Osteopathic Medicine] - 1 Week Activity/Diet/Wound Care/Special Instructions: Instructions 1. Do not begin any exercise program for 3 weeks. 2. Do not resume sexual relations for 3 weeks or longer if uncomfortable. 3. You may take tub baths or showers at any time. 4. You may use tampons if desired after 3 weeks. 5. Keep the area of episiotomy (stitches) clean and dry. 6. If you are not nursing, wear a good fitting, supportive bra during the day and limit fluid intake for at least 1 week to prevent breast engorgement. 7. Call the office, [phone], within the next week to make appointment for your 6 week checkup if it has not already been made. 8. Report any of the following occurrences to the doctor promptly: a. Heavy, excessive bleeding b. Chills, fever c. Burning or frequency of urination d. Pain or redness and breasts if nursing e. Increasing pain or swelling in episiotomy (stitches). In addition to the above instructions, the following additional should be followed: 1. No heavy lifting or straining (exercising) until after 6 week checkup. 2. Keep abdominal incision clean and dry: You may wear a dressing if more comfortable. 3. Make office appointment for 10 days after going home or as instructed by her doctor. Discharge Disposition: HOME SELF-CARE
== END 2018-10-29 14:46 | disposition home or self-care (01) | DRG 788 ==
LOC: 4FBP 06:18
PROVIDERS: ADMIT Obstetrics & Gynecology; ATTEND Obstetrics & Gynecology
PROC: 10D00Z1 Extraction of Products of Conception, Low, Open Approach (ICD-10-PCS; principal; 2018-10-27 22:00)
PROC: 3E0R3NZ Introduction of Analgesics, Hypnotics, Sedatives into Spinal Canal, Percutaneous Approach (ICD-10-PCS; principal; 2018-10-27 22:00)
PROC: 00HU33Z Insertion of Infusion Device into Spinal Canal, Percutaneous Approach (ICD-10-PCS; principal; 2018-10-27 22:00)
PROC: 3E033VJ Introduction of Other Hormone into Peripheral Vein, Percutaneous Approach (ICD-10-PCS; principal; 2018-10-27 22:00)
DX: O61.0 Failed medical induction of labor (principal); O62.0 Primary inadequate contractions; O76 Abnormality in fetal heart rate and rhythm complicating labor and delivery; O69.81X0 Labor and delivery complicated by cord around neck, without compression, not applicable or unspecified; Z3A.39 39 weeks gestation of pregnancy; Z37.0 Single live birth; Z88.5 Allergy status to narcotic agent; Z87.891 Personal history of nicotine dependence; Z82.49 Family history of ischemic heart disease and other diseases of the circulatory system; Z83.3 Family history of diabetes mellitus; Z88.6 Allergy status to analgesic agent; Z88.0 Allergy status to penicillin; Z88.8 Allergy status to other drugs, medicaments and biological substances; Z91.018 Allergy to other foods
CPT/HCPCS: 85025; 85461; 86850; 86870; 86880; 86900; 86901; 88307

== ENCOUNTER 2019-04-22 01:29 | Emergency (ER) | payer OTHER ==
[2019-04-22 01:38] VITALS: RESP 20
[2019-04-22] MEDS ORDERED: ONDANSETRON 4 MG/2 ML VIAL IVP STA (02:14)
[2019-04-22] MEDS ORDERED: SODIUM CHLORIDE 0.9% 1,000 ML IV STA (02:14)
--- NOTE | 2019-04-22 02:19 | ED ---
Abdominal Pain HPI - General Chief Complaint: Abdominal Pain Stated Complaint: URQ Pain Back Pain Time Seen by Provider: 04/22/19 01:48 Source: patient Mode of arrival: ambulatory Limitations: no limitations - History of Present Illness Initial Comments: Patient is 21-year-old woman who presents to be valid for right upper quadrant pain. The patient states that it had come on this evening. She describes it as aching, she describes a colicky character. She states dates the pain is moderately severe. She also notes that she has had sporadic episodes of vomiting going back approximately 2 weeks now. She has not seen blood or bile. No change in bowel movements. No change in urination. MD Complaint: abdominal pain -: hour(s) Location: RUQ Radiation: back Severity: moderate Quality: aching Consistency: colicky Improves With: nothing Worsens With: nothing Associated Symptoms: nausea, vomiting - Related Data Home Medications Medication Instructions Recorded Confirmed Pnv,Calcium 72/Iron/Folic Acid 1 tab PO DAILY 04/30/18 10/27/18 [ Plus Tablet] Previous Rx's Medication Instructions Recorded HYDROcodone/APAP 5-325MG [[place] 1 tab PO Q4HR PRN 7 Days #42 tab 10/29/18 5-325] Ibuprofen [Motrin] 600 mg PO QID PRN #60 tab 10/29/18 Famotidine [Pepcid] 20 mg PO BID #14 tablet 04/22/19 Allergies Allergy/AdvReac Type Severity Reaction Status Date / Time adhesive tape Allergy Rash/Hives Verified 04/22/19 01:38 aspirin Allergy Rash/Hives Verified 04/22/19 01:38 Gadolinium-Containing Allergy Chest Pain Verified 04/22/19 01:38 Contrast Medi iodine Allergy Anaphylaxis Verified 04/22/19 01:38 naproxen Allergy Rash/Hives Verified 04/22/19 01:38 Penicillins Allergy Anaphylaxis Verified 04/22/19 01:38 wool Allergy Rash/Hives Verified 04/22/19 01:38 tomato AdvReac Nausea & Verified 04/22/19 01:38 Vomiting chlorine Allergy Rash/Hives Uncoded 04/22/19 01:38 chlorophyll Allergy Unknown Uncoded 04/22/19 01:38 dust Allergy Wheezing Uncoded 04/22/19 01:38 pet dander Allergy Wheezing Uncoded 04/22/19 01:38 Review of Systems ROS Statement: Those systems with pertinent positive or pertinent negative responses have been documented in the HPI. ROS Other: All systems not noted in ROS Statement are negative. Constitutional: Denies: fever, chills Respiratory: Denies: cough, dyspnea Cardiovascular: Denies: chest pain, palpitations, edema Gastrointestinal: Reports: abdominal pain, nausea, vomiting. Denies: diarrhea, constipation, hematemesis, melena, hematochezia Genitourinary: Denies: dysuria, hematuria, discharge, abnormal menses Musculoskeletal: Denies: back pain Skin: Denies: rash Neurological: Denies: headache Past Medical History Past Medical History: No Reported History History of Any Multi-Drug Resistant Organisms: None Reported Past Surgical History: No Surgical Hx Reported, Section Additional Past Surgical History / Comment(s): D&C, Past Anesthesia/Blood Transfusion Reactions: No Reported Reaction Past Psychological History: No Psychological Hx Reported Smoking Status: Current every day smoker Past Alcohol Use History: None Reported Past Drug Use History: None Reported - Past Family History Mother Family Medical History: Diabetes Mellitus, Hypertension General Exam Limitations: no limitations General appearance: alert, in no apparent distress Head exam: Present: atraumatic, normocephalic Eye exam: Present: normal appearance. Absent: scleral icterus, conjunctival injection ENT exam: Present: normal oropharynx Neck exam: Present: normal inspection Respiratory exam: Present: normal lung sounds bilaterally. Absent: respiratory distress, wheezes, rales, rhonchi, stridor Cardiovascular Exam: Present: regular rate, normal rhythm, normal heart sounds GI/Abdominal exam: Present: soft. Absent: distended, tenderness, guarding, rebound, rigid Extremities exam: Present: normal inspection, normal capillary refill. Absent: pedal edema, calf tenderness Back exam: Present: normal inspection. Absent: CVA tenderness (R), CVA tenderness (L) Neurological exam: Present: alert Skin exam: Present: warm, dry, intact, normal color. Absent: rash Course Vital Signs 04/22/19 01:35 Temperature 98.7 F Pulse Rate 70 Respiratory 20 Rate Blood Pressure 142/86 O2 Sat by Pulse 97 Oximetry Medical Decision Making - Lab Data Result diagrams: 04/22/19 02:20 04/22/19 02:20 Lab Results 04/22/19 04/22/19 04/22/19 Range/Units 02:20 02:20 02:20 WBC (3.8-10.6) k/uL RBC (3.80-5.40) m/uL Hgb (11.4-16.0) gm/dL Hct (34.0-46.0) % MCV (80.0-100.0) fL MCH (25.0-35.0) pg MCHC (31.0-37.0) g/dL RDW (11.5-15.5) % Plt Count (150-450) k/uL Neutrophils % % Lymphocytes % % Monocytes % % Eosinophils % % Basophils % % Neutrophils # (1.3-7.7) k/uL Lymphocytes # (1.0-4.8) k/uL Monocytes # (0-1.0) k/uL Eosinophils # (0-0.7) k/uL Basophils # (0-0.2) k/uL Sodium 140 (137-145) mmol/L Potassium 4.3 (3.5-5.1) mmol/L Chloride 109 H (98-107) mmol/L Carbon Dioxide 20 L (22-30) mmol/L Anion Gap 11 mmol/L BUN 13 (7-17) mg/dL Creatinine 0.71 (0.52-1.04) mg/dL Est GFR (CKD-EPI)AfAm >90 (>60 ml/min/1.73 sqM) Est GFR (CKD-EPI)NonAf >90 (>60 ml/min/1.73 sqM) Glucose 119 H (74-99) mg/dL Calcium 10.1 (8.4-10.2) mg/dL Total Bilirubin 0.2 (0.2-1.3) mg/dL AST 19 (14-36) U/L ALT 17 (9-52) U/L Alkaline Phosphatase 83 (38-126) U/L Total Protein 7.3 (6.3-8.2) g/dL Albumin 4.8 (3.5-5.0) g/dL Amylase 84 (30-110) U/L Lipase 90 (23-300) U/L Urine Color Light Yellow Urine Appearance Clear (Clear) Urine pH 6.5 (5.0-8.0) Ur Specific [place] 1.012 (1.001-1.035) Urine Protein Negative (Negative) Urine Glucose (UA) Negative (Negative) Urine Ketones Negative (Negative) Urine Blood Moderate H (Negative) Urine Nitrite Negative (Negative) Urine Bilirubin Negative (Negative) Urine Urobilinogen <2.0 (<2.0) mg/dL Ur Leukocyte Esterase Trace H (Negative) Urine RBC 1 (0-5) /hpf Urine WBC 1 (0-5) /hpf Ur Squamous Epith Cells 1 (0-4) /hpf Urine Mucus Rare H (None) /hpf Urine HCG, Qual Not Detected (Not Detectd) 04/22/19 Range/Units 02:20 WBC 11.9 H (3.8-10.6) k/uL RBC 4.55 (3.80-5.40) m/uL Hgb 13.6 (11.4-16.0) gm/dL Hct 40.7 (34.0-46.0) % MCV 89.4 (80.0-100.0) fL MCH 29.8 (25.0-35.0) pg MCHC 33.3 (31.0-37.0) g/dL RDW 14.6 (11.5-15.5) % Plt Count 346 (150-450) k/uL Neutrophils % 66 % Lymphocytes % 24 % Monocytes % 5 % Eosinophils % 4 % Basophils % 1 % Neutrophils # 7.8 H (1.3-7.7) k/uL Lymphocytes # 2.8 (1.0-4.8) k/uL Monocytes # 0.6 (0-1.0) k/uL Eosinophils # 0.5 (0-0.7) k/uL Basophils # 0.1 (0-0.2) k/uL Sodium (137-145) mmol/L Potassium (3.5-5.1) mmol/L Chloride (98-107) mmol/L Carbon Dioxide (22-30) mmol/L Anion Gap mmol/L BUN (7-17) mg/dL Creatinine (0.52-1.04) mg/dL Est GFR (CKD-EPI)AfAm (>60 ml/min/1.73 sqM) Est GFR (CKD-EPI)NonAf (>60 ml/min/1.73 sqM) Glucose (74-99) mg/dL Calcium (8.4-10.2) mg/dL Total Bilirubin (0.2-1.3) mg/dL AST (14-36) U/L ALT (9-52) U/L Alkaline Phosphatase (38-126) U/L Total Protein (6.3-8.2) g/dL Albumin (3.5-5.0) g/dL Amylase (30-110) U/L Lipase (23-300) U/L Urine Color Urine Appearance (Clear) Urine pH (5.0-8.0) Ur Specific [place] (1.001-1.035) Urine Protein (Negative) Urine Glucose (UA) (Negative) Urine Ketones (Negative) Urine Blood (Negative) Urine Nitrite (Negative) Urine Bilirubin (Negative) Urine Urobilinogen (<2.0) mg/dL Ur Leukocyte Esterase (Negative) Urine RBC (0-5) /hpf Urine WBC (0-5) /hpf Ur Squamous Epith Cells (0-4) /hpf Urine Mucus (None) /hpf Urine HCG, Qual (Not Detectd) Disposition Clinical Impression: Abdominal pain Disposition: HOME SELF-CARE Condition: Good Instructions (If sedation given, give patient instructions): Abdominal Pain (ED) Prescriptions: Famotidine [Pepcid] 20 mg PO BID #14 tablet Is patient prescribed a controlled substance at d/c from ED?: No Referrals: None,Stated [Primary Care Provider] - 1-2 days
[2019-04-22 02:34] LABS: Appearance,Urine Clear (Clear); Bilirubin,Urine Negative (Negative); Blood,Urine Moderate (Negative); Color,Urine Light Yellow; Glucose,Urine (UA) Negative (Negative); Ketones,Urine Negative (Negative); Leukocyte Esterase,Urine Trace (Negative); Mucus,Urine Rare /hpf; Nitrite,Urine Negative (Negative); PH, Urine 6.5 (5.0-8.0); Protein,Urine Negative (Negative); RBC,Urine 1 /hpf (0-5); Specific Gravity,Urine 1.012 (1.001-1.035); Squamous Epithelial Cell,Urine 1 /hpf (0-4); Urobilinogen,Urine <2.0 mg/dL (<2.0); WBC,Urine 1 /hpf (0-5)
[2019-04-22 02:50] LABS: Basophils # (A) 0.1 k/uL (0-0.2); Basophils % (A) 1 %; Eosinophils # (A) 0.5 k/uL (0-0.7); Eosinophils % (A) 4 %; HCT 40.7 % (34.0-46.0); HGB 13.6 gm/dL (11.4-16.0); Lymphocytes # (A) 2.8 k/uL (1.0-4.8); Lymphocytes % (A) 24 %; MCH 29.8 pg (25.0-35.0); MCHC 33.3 g/dL (31.0-37.0); MCV 89.4 fL (80.0-100.0); Mean Platelet Volume 7.9; Monocytes # (A) 0.6 k/uL (0-1.0); Monocytes % (A) 5 %; Neutrophils # (A) 7.8 k/uL (1.3-7.7); Neutrophils % (A) 66 %; Platelet Count 346 k/uL (150-450); RBC 4.55 m/uL (3.80-5.40); RDW 14.6 % (11.5-15.5); WBC 11.9 k/uL (3.8-10.6)
[2019-04-22 02:54] LABS: ALT 17 U/L (9-52); AST 19 U/L (14-36); Albumin 4.8 g/dL (3.5-5.0); Alkaline Phosphatase 83 U/L (38-126); Amylase 84 U/L (30-110); Anion Gap 11 mmol/L; Blood Urea Nitrogen 13 mg/dL (7-17); Calcium 10.1 mg/dL (8.4-10.2); Carbon Dioxide 20 mmol/L (22-30); Chloride 109 mmol/L (98-107); Glucose 119 mg/dL (74-99); Lipase 90 U/L (23-300); Potassium 4.3 mmol/L (3.5-5.1); Sodium 140 mmol/L (137-145); Total Bilirubin 0.2 mg/dL (0.2-1.3); Total Protein 7.3 g/dL (6.3-8.2)
[2019-04-22 03:59] VITALS: BP 131/70; PULSE 52; TEMP 97.9
== END 2019-04-22 03:59 | disposition home or self-care (01) ==
LOC: EC 01:29
DX: R10.11 Right upper quadrant pain (principal); R11.2 Nausea with vomiting, unspecified; M54.9 Dorsalgia, unspecified; F17.200 Nicotine dependence, unspecified, uncomplicated; Z91.048 Other nonmedicinal substance allergy status; Z88.6 Allergy status to analgesic agent; Z91.041 Radiographic dye allergy status; Z88.0 Allergy status to penicillin; Z91.018 Allergy to other foods
CPT/HCPCS: 36415; 80053; 82150; 83690; 85025; 81001; 81025; 99284; 96374; 96361; J2405

== ENCOUNTER → 2019-04-23 | Outpatient (CLI) | payer OTHER ==
--- NOTE | 2019-04-23 15:23 | US ---
EXAMINATION TYPE: US abdomen limited DATE OF EXAM: 04/23/2019 COMPARISON: Renal ultrasound 09/02/2018 CLINICAL HISTORY: R10.11 RIGHT UPPER QUADRANT PAIN. EXAM MEASUREMENTS: Liver Length: 13.7 cm Gallbladder Wall: 0.2 cm CBD: 0.4 cm Right Kidney: 9.6 x 3.5 x 4.6 cm Pancreas: Tail obscured by overlying bowel gas, visualized portions appear wnl Liver: wnl Gallbladder: wnl Evidence for sonographic Simpson's sign: No CBD: wnl Right Kidney: No hydronephrosis or masses seen IMPRESSION: No sonographic evidence of cholelithiasis nor acute cholecystitis. If there is further co ncern HIDA scan with CCK could be performed to evaluate for biliary dyskinesia or chronic cholecystit is.
== END | disposition home or self-care (01) ==
LOC: RADUSWWP 13:42
PROVIDERS: ATTEND Family Medicine
DX: R10.11 Right upper quadrant pain (principal)
CPT/HCPCS: 76705

== ENCOUNTER 2019-08-06 | Emergency (ER) | payer OTHER ==
[2019-08-06 00:09] VITALS: RESP 18
[2019-08-06 00:39] LABS: Appearance,Urine Clear (Clear); Bacteria,Urine Rare /hpf; Bilirubin,Urine Negative (Negative); Blood,Urine Small (Negative); Color,Urine Light Yellow; Glucose,Urine (UA) Negative (Negative); Ketones,Urine Negative (Negative); Leukocyte Esterase,Urine Trace (Negative); Mucus,Urine Rare /hpf; Nitrite,Urine Negative (Negative); Protein,Urine Negative (Negative); RBC,Urine 1 /hpf (0-5); Squamous Epithelial Cell,Urine 2 /hpf (0-4); Urobilinogen,Urine <2.0 mg/dL (<2.0)
[2019-08-06 01:16] LABS: Basophils # (A) 0.1 k/uL (0-0.2); Basophils % (A) 1 %; Eosinophils # (A) 0.4 k/uL (0-0.7); Eosinophils % (A) 3 %; HCT 40.8 % (34.0-46.0); HGB 13.6 gm/dL (11.4-16.0); Lymphocytes # (A) 2.7 k/uL (1.0-4.8); Lymphocytes % (A) 25 %; MCH 29.8 pg (25.0-35.0); MCHC 33.4 g/dL (31.0-37.0); MCV 89.2 fL (80.0-100.0); Mean Platelet Volume 7.5; Monocytes # (A) 0.5 k/uL (0-1.0); Monocytes % (A) 5 %; Neutrophils % (A) 65 %; Platelet Count 296 k/uL (150-450); RBC 4.57 m/uL (3.80-5.40); RDW 13.1 % (11.5-15.5); WBC 10.9 k/uL (3.8-10.6)
[2019-08-06 01:28] LABS: ALT 19 U/L (9-52); AST 18 U/L (14-36); African American GFR (CKD) >90 (>60 ml/min/1.73 sqM); Albumin 4.6 g/dL (3.5-5.0); Alkaline Phosphatase 77 U/L (38-126); Amylase 83 U/L (30-110); Anion Gap 11 mmol/L; Blood Urea Nitrogen 10 mg/dL (7-17); Calcium 9.7 mg/dL (8.4-10.2); Carbon Dioxide 21 mmol/L (22-30); Chloride 107 mmol/L (98-107); Glucose 120 mg/dL (74-99); Potassium 4.2 mmol/L (3.5-5.1); Sodium 139 mmol/L (137-145); Total Bilirubin <0.1 mg/dL (0.2-1.3); Total Protein 7.1 g/dL (6.3-8.2)
--- NOTE | 2019-08-06 02:04 | CT ---
EXAMINATION TYPE: CT abdomen pelvis wo con DATE OF EXAM: 08/06/2019 COMPARISON: HISTORY: right sided abdominal pain CT DLP: 566.7 mGycm Automated exposure control for dose reduction was used. TECHNIQUE: Helical acquisition of images was performed from the lung bases through the pelvis. FINDINGS: Lung bases are clear. There is no pleural effusion. Heart size is normal. Stomach appears normal. Liver spleen pancreas gallbladder appear normal. Gallbladder is contracted. W hile ducts are not dilated. There is no adrenal mass. Kidneys have normal size. There is 4 mm calculus posterior left kidney. The re is no hydronephrosis. Ureters are not dilated. There is no retroperitoneal adenopathy. Bladder dis tends smoothly. Uterus is anteverted. There is no free fluid in the pelvis. There is no pelvic mass. Appendix appears normal. There is no mesenteric edema. There is no ascites or free air. There is no s ign of a bowel obstruction. Lumbar spine is intact. Bony pelvis is intact. IMPRESSION: NEGATIVE CT SCAN ABDOMEN AND PELVIS. NORMAL APPENDIX.
--- NOTE | 2019-08-06 02:16 | ED ---
Abdominal Pain HPI - General Chief Complaint: Abdominal Pain Stated Complaint: Flank Pain Time Seen by Provider: 08/06/19 00:10 Source: patient Mode of arrival: ambulatory Limitations: physical limitation - History of Present Illness Initial Comments: This patient is 23-year-old woman with right-sided abdominal pain. She noted the onset a little after 9 PM. Patient was at rest. She states that the pain is a little worse if she stands and she also feels which is describing as a lump or bulge in the right side of her abdomen. She maintains that this is new and that it is tender. She has not had any other signs of hernia, including no change in bowel movements and no nausea or vomiting. MD Complaint: abdominal pain Onset/Timin -: hour(s) Location: LUQ, RUQ, R flank Radiation: none Migration to: no migration Severity: moderate Quality: aching Consistency: constant Improves With: nothing Worsens With: other (Palpation) Associated Symptoms: denies other symptoms - Related Data Home Medications Medication Instructions Recorded Confirmed Pnv,Calcium 72/Iron/Folic Acid 1 tab PO DAILY 04/30/18 10/27/18 [ Plus Tablet] Previous Rx's Medication Instructions Recorded HYDROcodone/APAP 5-325MG [[place] 1 tab PO Q4HR PRN 7 Days #42 tab 10/29/18 5-325] Ibuprofen [Motrin] 600 mg PO QID PRN #60 tab 10/29/18 Famotidine [Pepcid] 20 mg PO BID #14 tablet 04/22/19 Famotidine [Pepcid] 20 mg PO BID #14 tablet 08/06/19 Allergies Allergy/AdvReac Type Severity Reaction Status Date / Time adhesive tape Allergy Rash/Hives Verified 08/06/19 00:09 aspirin Allergy Rash/Hives Verified 08/06/19 00:09 Gadolinium-Containing Allergy Chest Pain Verified 08/06/19 00:09 Contrast Medi iodine Allergy Anaphylaxis Verified 08/06/19 00:09 naproxen Allergy Rash/Hives Verified 08/06/19 00:09 Penicillins Allergy Anaphylaxis Verified 08/06/19 00:09 wool Allergy Rash/Hives Verified 08/06/19 00:09 tomato AdvReac Nausea & Verified 08/06/19 00:09 Vomiting chlorine Allergy Rash/Hives Uncoded 08/06/19 00:09 chlorophyll Allergy Unknown Uncoded 08/06/19 00:09 dust Allergy Wheezing Uncoded 04/22/19 01:38 pet dander Allergy Wheezing Uncoded 04/22/19 01:38 Review of Systems ROS Statement: Those systems with pertinent positive or pertinent negative responses have been documented in the HPI. ROS Other: All systems not noted in ROS Statement are negative. Constitutional: Denies: fever, chills, weakness Respiratory: Denies: cough, dyspnea Cardiovascular: Denies: chest pain, palpitations Gastrointestinal: Reports: abdominal pain, nausea. Denies: vomiting, diarrhea, constipation, melena, hematochezia Genitourinary: Denies: dysuria, hematuria Musculoskeletal: Denies: back pain Skin: Denies: rash Neurological: Denies: headache, weakness, numbness Past Medical History Past Medical History: No Reported History History of Any Multi-Drug Resistant Organisms: None Reported Past Surgical History: No Surgical Hx Reported, Section Additional Past Surgical History / Comment(s): D&C, Past Anesthesia/Blood Transfusion Reactions: No Reported Reaction Past Psychological History: No Psychological Hx Reported Smoking Status: Current every day smoker Past Alcohol Use History: None Reported Past Drug Use History: None Reported - Past Family History Mother Family Medical History: Diabetes Mellitus, Hypertension General Exam Limitations: physical limitation General appearance: alert, in no apparent distress Head exam: Present: atraumatic, normocephalic Eye exam: Present: normal appearance. Absent: scleral icterus, conjunctival injection ENT exam: Present: normal oropharynx Neck exam: Present: normal inspection Respiratory exam: Present: normal lung sounds bilaterally. Absent: respiratory distress, wheezes, rales, rhonchi, stridor, chest wall tenderness Cardiovascular Exam: Present: regular rate, normal rhythm, normal heart sounds. Absent: systolic murmur, diastolic murmur, rubs, gallop GI/Abdominal exam: Present: soft, tenderness, normal bowel sounds. Absent: distended, guarding, rebound, rigid, mass, pulsatile mass, hernia Extremities exam: Present: normal inspection, normal capillary refill. Absent: pedal edema, calf tenderness Back exam: Present: normal inspection. Absent: CVA tenderness (R), CVA tenderness (L) Neurological exam: Present: alert, normal gait Skin exam: Present: warm, dry, intact, normal color. Absent: rash Course Vital Signs 08/06/19 08/06/19 00:04 02:30 Temperature 98.2 F 98.1 F Pulse Rate 74 59 L Respiratory 18 18 Rate Blood Pressure 144/81 139/77 O2 Sat by Pulse 97 98 Oximetry Medical Decision Making - Medical Decision Making Patient is 23-year-old woman with right-sided abdominal pain. In addition she states she can feel a lump when she stands. Not able to palpate this lump and given her level of concern patient very set on having computed tomography scan. The workup is negative, and discussed the appropriate follow-up, further care and return parameters with patient. She does states she is feeling better following medication here. - Lab Data Result diagrams: 08/06/19 01:02 08/06/19 01:02 Lab Results 08/06/19 08/06/19 08/06/19 Range/Units 00:20 00:20 01:02 WBC (3.8-10.6) k/uL RBC (3.80-5.40) m/uL Hgb (11.4-16.0) gm/dL Hct (34.0-46.0) % MCV (80.0-100.0) fL MCH (25.0-35.0) pg MCHC (31.0-37.0) g/dL RDW (11.5-15.5) % Plt Count (150-450) k/uL Neutrophils % % Lymphocytes % % Monocytes % % Eosinophils % % Basophils % % Neutrophils # (1.3-7.7) k/uL Lymphocytes # (1.0-4.8) k/uL Monocytes # (0-1.0) k/uL Eosinophils # (0-0.7) k/uL Basophils # (0-0.2) k/uL Sodium 139 (137-145) mmol/L Potassium 4.2 (3.5-5.1) mmol/L Chloride 107 (98-107) mmol/L Carbon Dioxide 21 L (22-30) mmol/L Anion Gap 11 mmol/L BUN 10 (7-17) mg/dL Creatinine 0.71 (0.52-1.04) mg/dL Est GFR (CKD-EPI)AfAm >90 (>60 ml/min/1.73 sqM) Est GFR (CKD-EPI)NonAf >90 (>60 ml/min/1.73 sqM) Glucose 120 H (74-99) mg/dL Calcium 9.7 (8.4-10.2) mg/dL Total Bilirubin <0.1 L (0.2-1.3) mg/dL AST 18 (14-36) U/L ALT 19 (9-52) U/L Alkaline Phosphatase 77 (38-126) U/L Total Protein 7.1 (6.3-8.2) g/dL Albumin 4.6 (3.5-5.0) g/dL Amylase 83 (30-110) U/L Lipase 87 (23-300) U/L Urine Color Light Yellow Urine Appearance Clear (Clear) Urine pH 6.0 (5.0-8.0) Ur Specific Shock 1.010 (1.001-1.035) Urine Protein Negative (Negative) Urine Glucose (UA) Negative (Negative) Urine Ketones Negative (Negative) Urine Blood Small H (Negative) Urine Nitrite Negative (Negative) Urine Bilirubin Negative (Negative) Urine Urobilinogen <2.0 (<2.0) mg/dL Ur Leukocyte Esterase Trace H (Negative) Urine RBC 1 (0-5) /hpf Urine WBC 2 (0-5) /hpf Ur Squamous Epith Cells 2 (0-4) /hpf Urine Bacteria Rare H (None) /hpf Urine Mucus Rare H (None) /hpf Urine HCG, Qual Not Detected (Not Detectd) 08/06/19 Range/Units 01:02 WBC 10.9 H (3.8-10.6) k/uL RBC 4.57 (3.80-5.40) m/uL Hgb 13.6 (11.4-16.0) gm/dL Hct 40.8 (34.0-46.0) % MCV 89.2 (80.0-100.0) fL MCH 29.8 (25.0-35.0) pg MCHC 33.4 (31.0-37.0) g/dL RDW 13.1 (11.5-15.5) % Plt Count 296 (150-450) k/uL Neutrophils % 65 % Lymphocytes % 25 % Monocytes % 5 % Eosinophils % 3 % Basophils % 1 % Neutrophils # 7.0 (1.3-7.7) k/uL Lymphocytes # 2.7 (1.0-4.8) k/uL Monocytes # 0.5 (0-1.0) k/uL Eosinophils # 0.4 (0-0.7) k/uL Basophils # 0.1 (0-0.2) k/uL Sodium (137-145) mmol/L Potassium (3.5-5.1) mmol/L Chloride (98-107) mmol/L Carbon Dioxide (22-30) mmol/L Anion Gap mmol/L BUN (7-17) mg/dL Creatinine (0.52-1.04) mg/dL Est GFR (CKD-EPI)AfAm (>60 ml/min/1.73 sqM) Est GFR (CKD-EPI)NonAf (>60 ml/min/1.73 sqM) Glucose (74-99) mg/dL Calcium (8.4-10.2) mg/dL Total Bilirubin (0.2-1.3) mg/dL AST (14-36) U/L ALT (9-52) U/L Alkaline Phosphatase (38-126) U/L Total Protein (6.3-8.2) g/dL Albumin (3.5-5.0) g/dL Amylase (30-110) U/L Lipase (23-300) U/L Urine Color Urine Appearance (Clear) Urine pH (5.0-8.0) Ur Specific Shock (1.001-1.035) Urine Protein (Negative) Urine Glucose (UA) (Negative) Urine Ketones (Negative) Urine Blood (Negative) Urine Nitrite (Negative) Urine Bilirubin (Negative) Urine Urobilinogen (<2.0) mg/dL Ur Leukocyte Esterase (Negative) Urine RBC (0-5) /hpf Urine WBC (0-5) /hpf Ur Squamous Epith Cells (0-4) /hpf Urine Bacteria (None) /hpf Urine Mucus (None) /hpf Urine HCG, Qual (Not Detectd) Disposition Clinical Impression: Abdominal pain Disposition: HOME SELF-CARE Condition: Good Instructions (If sedation given, give patient instructions): Abdominal Pain (ED) Prescriptions: Famotidine [Pepcid] 20 mg PO BID #14 tablet Is patient prescribed a controlled substance at d/c from ED?: No Referrals: Mukul Pena DO [Primary Care Provider] - 1-2 days
[2019-08-06] MEDS ORDERED: DICYCLOMINE 20 MG TAB PO STA (02:17)
[2019-08-06 02:31] VITALS: BP 139/77; PULSE 59; TEMP 98.1
== END 2019-08-06 02:31 | disposition home or self-care (01) ==
LOC: EC
DX: R10.11 Right upper quadrant pain (principal); R10.12 Left upper quadrant pain; F17.200 Nicotine dependence, unspecified, uncomplicated; Z91.048 Other nonmedicinal substance allergy status; Z88.6 Allergy status to analgesic agent; Z91.041 Radiographic dye allergy status; Z88.0 Allergy status to penicillin; Z91.018 Allergy to other foods
CPT/HCPCS: 36415; 74176; 80053; 81001; 81025; 82150; 83690; 85025; 99284

== ENCOUNTER → 2020-01-14 | Outpatient (CLI) | payer OTHER ==
--- NOTE | 2020-01-14 15:03 | US ---
EXAMINATION TYPE: Transabdominal DATE OF EXAM: 01/14/2020 2:27 PM COMPARISON: NONE CLINICAL HISTORY: [id number] confirm [id number], Smoker; confirm dates EXAM PERFORMED: Transabdominal (TA) EXAM MEASUREMENTS: GESTATIONAL AGE / DATING Physician Established: Not yet established Dates by LMP: (11 weeks/ 2 days) EDC: 08/02/2020 Dates by First Scan: No previous. Dates by Current Scan for: (10 weeks/ 6 days) EDC: 08/05/2020 MATERNAL ANATOMY Uterus: 12.1 x 7.5 x 5.6cm Right Ovary: 2.7 x 2.1 x 1.7cm Left Ovary: 3.2 x 2.4 x 1.6cm with CL of noted in left ovary Post CDS / Adnexa: wnl Presence of free fluid: no Presence of corpus luteal cyst: in left ovary = 1.4 x 1.8 x 0.9cm Presence of subchorionic bleed: no GESTATION / SURVEY CRL: 3.9cm (10 weeks/6 days) Yolk Sac (normal less than 6mm): not seen Heart Rate: 155 bpm Rhythm: Normal IUP: single, live IUP Nuchal Translucency 10-14wks (normal less than 3mm): 0.9mm Date of LMP: 10/27/2019 Beta HcG (if available): NA Single, live IUP,10 weeks/ 6 days, EDC: 08/05/2020, HR 155bpm. IMPRESSION: Single intrauterine gestation estimated at 10 weeks 6 days gestation based on crown-rump length. Card iac activity [id number] beats per minute.
== END | disposition home or self-care (01) ==
LOC: RADUSWWP 13:57
PROVIDERS: ATTEND Obstetrics & Gynecology
DX: Z36.89 Encounter for other specified antenatal screening (principal); Z3A.10 10 weeks gestation of pregnancy
CPT/HCPCS: 76801

== ENCOUNTER 2020-06-15 00:10 | Outpatient (CLI) | payer OTHER ==
[2020-06-15 00:22] VITALS: BP 135/63; PULSE 66; RESP 16; TEMP 99.1
--- NOTE | 2020-06-15 01:56 | US ---
EXAMINATION TYPE: US OB >= 14 wk fetus DATE OF EXAM: 06/15/2020 COMPARISON: US CLINICAL HISTORY: questionable SROM: NIELS, EFW, position Questionable ROM. NIELS, EFW, position. Patient possibly leaking fluid. Smoker. Hx miscarriage, D and C. Patient does not know how many pregnancies she has had. G? P1. TECHNIQUE: Transabdominal (TA) GESTATIONAL AGE / DATING Physician Established: (33 weeks/2 days) EDC: 08/01/2020 Dates by LMP: (33 weeks/1 day) EDC: 08/02/2020 Dates by First Scan: (32 weeks/5 days) EDC: 08/05/2020 Dates by Current Scan: (31 weeks/5 days) EDC: 08/12/2020 SURVEY IUP: Single PLACENTA: Posterior. Anechoic area seen measurin.2 x 0.8 x 1.1 cm. PREVIA: No Previa seen NIELS: 16.30 cm Normal CERVICAL LENGTH (transabdominal: norm > 3.0cm): 3.37 cm. Limited visibility. *no transvaginal cervical measurement needed per doctor. BIOMETRY PRESENTATION: Vertex LIE: Longitudinal BPD: 8.22 cm 33 weeks / 0 days HC: 29.95 cm 33 weeks / 1 day AC: 27.97 cm 32 weeks / 0 days FL: 5.95 cm 31 weeks / 0 days ESTIMATED WEIGHT IN GRAMS: 1863 grams ESTIMATED WEIGHT IN LBS/OZ: 4 lbs. 2 oz. WEIGHT PERCENTAGE BASED ON ESTABLISHED DATES: 10.1% HC/AC: 1.07 Normal FL/AC: 21.26 Normal HEART RATE: 126 bpm RHYTHM: Normal IMPRESSION: The ultrasound gestational age is 31 weeks and 5 days. The estimated weight is 10%ile. IUGR should be considered. Amniotic fluid is adequate.
--- NOTE | 2020-06-19 10:52 | P.MSEPDOC ---
Presenting Problems - Arrival Data Date of Arrival on Unit: 06/15/20 Time of Arrival on Unit: 00:10 Mode of Transport: Wheelchair - Complaint OB-Reason for Admission/Chief Complaint: Rule Out SROM Comment: SROM clear fluid at 2100 Medical History - Information : 6 Para: 1 Term: 1 : 0 Abortions: Spontaneous or Elective: 4 Number of Living Children: 1 - Gestational Age Gestational Age by GRISELDA (wks/days): 33 Weeks and 1 Days Review of Systems - Review of Systems Constitutional: No problems Breast: No problems ENT: No problems Cardiovascular: No problems Respiratory: No problems Gastrointestinal: No problems Genitourinary: No problems Musculoskeletal: No problems Neurological: No problems Skin: No problems Vital Signs - Temperature Temperature: 99.1 F Temperature Source: Oral - Pulse Right Brachial Pulse Rate: 66 Pulse Assessment Method: Automatic Cuff - Respirations Respiratory Rate: 16 O2 Sat by Pulse Oximetry: 99 - Blood Pressure Right Arm Blood Pressure: 135/63 Blood Pressure Mean: 87 Blood Pressure Source: Automatic Cuff Medical Screen Scoring (Pre) - Cervical Exam Dilation: Exam Deferred Effacement: Exam Deferred Membranes: Intact - Uterine Contractions Frequency: N/A Duration: N/A Intensity: N/A - Maternal Vital Signs Maternal Temperature: N/A Maternal Blood Pressure: N/A Signs of Preeclampsia: N/A Maternal Respirations: N/A - Maternal Trauma Maternal Trauma: N/A - Assessment - Baby A Baseline FHR: 130 Heart Rate - NICHD Category: Category I (Normal) = 0 NST: Reactive Position: N/A - Total Score - Baby A Total Score - Baby A: 0 - Total Score - Baby B Total Score - Baby B: 0 - Total Score - Baby C Total Score - Baby C: 0 - Level of Risk - Baby A Level of Risk - Baby A: Low (0-5) - Level of Risk - Baby B Level of Risk - Baby B: Low (0-5) - Level of Risk - Baby C Level of Risk - Baby C: Low (0-5) Physician Notification (Pre) - Physician Notified Physician Notified Date: 06/15/20 Physician Notified Time: 00:48 Disposition - Disposition OB Disposition: Discharge to home Discharge Date: 06/15/20 Discharge Time: 01:59 I agree with the RN Medical Screening Exam: Yes Risk & Benefit of care provided described in d/c instruction: Yes Diagnosis: RELATED CONDITIONS, UNSPECIFIED, THIRD TRIMESTER
== END 2020-06-15 02:06 | disposition home or self-care (01) ==
LOC: FBPOP 00:10
PROVIDERS: ATTEND Obstetrics & Gynecology
DX: O26.93 Pregnancy related conditions, unspecified, third trimester (principal); Z3A.31 31 weeks gestation of pregnancy
CPT/HCPCS: 59025; 84112; 76805; G0463; 99213

== ENCOUNTER 2020-07-01 14:37 | Emergency (ER) | payer OTHER ==
[2020-07-01 14:47] VITALS: RESP 18
[2020-07-01] MEDS ORDERED: CALCIUM CARBONATE 500 MG CHEWABLE PO STA (15:13)
[2020-07-01] MEDS ORDERED: FAMOTIDINE 20 MG/2 ML VIAL IV STA (15:21)
[2020-07-01 15:42] LABS: Basophils # (A) 0.1 k/uL (0-0.2); Basophils % (A) 0 %; Eosinophils # (A) 0.2 k/uL (0-0.7); Eosinophils % (A) 1 %; HCT 33.2 % (34.0-46.0); HGB 10.9 gm/dL (11.4-16.0); Lymphocytes # (A) 2.9 k/uL (1.0-4.8); Lymphocytes % (A) 21 %; MCH 29.8 pg (25.0-35.0); MCHC 32.7 g/dL (31.0-37.0); MCV 91.1 fL (80.0-100.0); Mean Platelet Volume 9.8; Monocytes # (A) 0.6 k/uL (0-1.0); Monocytes % (A) 4 %; Neutrophils % (A) 72 %; Platelet Count 274 k/uL (150-450); RBC 3.65 m/uL (3.80-5.40); RDW 13.5 % (11.5-15.5); WBC 13.9 k/uL (3.8-10.6)
[2020-07-01 15:59] LABS: ALT 7 U/L (4-34); AST 30 U/L (14-36); African American GFR (CKD) >90 (>60 ml/min/1.73 sqM); Albumin 3.3 g/dL (3.5-5.0); Alkaline Phosphatase 101 U/L (38-126); Anion Gap 6 mmol/L; Blood Urea Nitrogen 4 mg/dL (7-17); Calcium 9.1 mg/dL (8.4-10.2); Carbon Dioxide 16 mmol/L (22-30); Chloride 111 mmol/L (98-107); Glucose 89 mg/dL (74-99); Non-African American GFR(CKD) >90 (>60 ml/min/1.73 sqM); Potassium 4.6 mmol/L (3.5-5.1); Sodium 133 mmol/L (137-145); Total Bilirubin 0.5 mg/dL (0.2-1.3); Total Protein 5.7 g/dL (6.3-8.2)
--- NOTE | 2020-07-01 16:26 | ED ---
General Adult HPI - General Chief complaint: GI Bleed Stated complaint: vomiting Time Seen by Provider: 07/01/20 14:50 Source: patient, RN notes reviewed, old records reviewed Mode of arrival: ambulatory Limitations: no limitations - History of Present Illness Initial comments: 24-year-old female patient who is a who is 35 weeks gestation follow up with Dr. Gaxiola presents to ED for acute complaint nausea vomiting. Patient has had some epigastric burning and discomfort. This is ongoing for the last 2 weeks. Waxing and waning. Patient was concerned because when she got up today there is a small brown area that was potentially some blood. Denies any vaginal bleeding. With exception for the epigastric discomfort she is denying any abdominal pain. Denies any chest pain or shortness of breath. Denies any other complaints at this time. Systemic: Pt denies fatigue, fever/chills, rash. Pt denies weakness, night sweats, weight loss. Neuro: Pt denies headache, visual disturbances, syncope or pre-syncope. HEENT: Pt denies ocular discharge or irritation, otalgia, rhinorrhea, pharyngitis or notable lymphadenopathy. Cardiopulmonary: Pt denies chest pain, SOB, heart palpitations, dyspnea on exertion. : Pt denies dysuria, burning w/ urination, frequency/urgency. Denies new onset urinary or bowel incontinence. MSK: Pt denies myalgia, loss of strength or function in extremities. Neuro: Pt denies new onset weakness, paresthesias. - Related Data Home Medications Medication Instructions Recorded Confirmed Pnv,Calcium 72/Iron/Folic Acid 1 tab PO DAILY 04/30/18 10/27/18 [ Plus Tablet] Previous Rx's Medication Instructions Recorded HYDROcodone/APAP 5-325MG [[place] 1 tab PO Q4HR PRN 7 Days #42 tab 10/29/18 5-325] Ibuprofen [Motrin] 600 mg PO QID PRN #60 tab 10/29/18 Famotidine [Pepcid] 20 mg PO BID #14 tablet 04/22/19 Famotidine [Pepcid] 20 mg PO BID #14 tablet 08/06/19 Allergies Allergy/AdvReac Type Severity Reaction Status Date / Time Penicillins Allergy Unknown Anaphylaxis Verified 07/01/20 14:47 adhesive tape Allergy Rash/Hives Verified 07/01/20 14:47 aspirin Allergy Rash/Hives Verified 07/01/20 14:47 Gadolinium-Containing Allergy Chest Pain Verified 07/01/20 14:47 Contrast Medi iodine Allergy Anaphylaxis Verified 07/01/20 14:47 naproxen Allergy Rash/Hives Verified 07/01/20 14:47 wool Allergy Rash/Hives Verified 07/01/20 14:47 tomato AdvReac Nausea & Verified 07/01/20 14:47 Vomiting chlorine Allergy Rash/Hives Uncoded 07/01/20 14:47 chlorophyll Allergy Unknown Uncoded 07/01/20 14:47 dust Allergy Wheezing Uncoded 07/01/20 14:47 pet dander Allergy Wheezing Uncoded 07/01/20 14:47 Review of Systems ROS Statement: Those systems with pertinent positive or pertinent negative responses have been documented in the HPI. ROS Other: All systems not noted in ROS Statement are negative. Past Medical History Past Medical History: No Reported History History of Any Multi-Drug Resistant Organisms: None Reported Past Surgical History: No Surgical Hx Reported, Section Additional Past Surgical History / Comment(s): D&C, Past Anesthesia/Blood Transfusion Reactions: No Reported Reaction Past Psychological History: No Psychological Hx Reported Smoking Status: Current every day smoker Past Alcohol Use History: None Reported Past Drug Use History: None Reported - Past Family History Mother Family Medical History: Diabetes Mellitus, Hypertension General Exam - General Exam Comments Initial Comments: Constitutional: NAD, AOX3, Pt has pleasant affect. HEENT: NC/AT, trachea midline, neck supple, no lymphadenopathy. External ears appear normal, without discharge. Mucous membranes moist. EOM intact. There is no scleral icterus. No pallor noted. Cardiopulmonary: RRR, no murmurs, rubs or gallops, no JVD noted. Lungs CTAB in anterior and posterior mosley. No peripheral edema. Abdominal exam: Abdomen soft and appropriately distended for . Abdomen mildly tender to palpation in epigastric region.. No hepatosplenomegaly. No ecchymosis Neuro: CN II-XII grossly intact. No nuchal rigidity. No raccon eyes, no carter sign, no hemotympanum. No cervical spinal tenderness. MSK: No posterior calf tenderness bilaterally, homans sign negative bilaterally. Posterior tibialis and radial pulse +2 bilaterally. Sensation intact in upper and lower extremities. Full active ROM in upper and lower extremities, 5/5 stregnth. Limitations: no limitations Course Vital Signs 07/01/20 07/01/20 14:44 16:37 Temperature 99.3 F 97.8 F Pulse Rate 92 68 Respiratory 18 18 Rate Blood Pressure 133/81 134/77 O2 Sat by Pulse 97 98 Oximetry Medical Decision Making - Medical Decision Making 24-year-old female patient with significant complaint epigastric abdominal pain nausea vomiting potentially some blood in the vomit earlier today. Patient will send her stable, afebrile. Physical exam slight mild amount of epigastric tenderness. She is denying any contractions. Patient additionally the picture of the possible blood. There is a dark brown spot is not bright red. Labs were drawn this displayed leukocytosis of 13.9. Hemoglobin of 10.9. Left shift. Bicarb of 16. heart tones displayed a reassuring heart rate in the 140s. I strongly recommend patient to be evaluated by mother baby including ultrasound stress test. She is denying this. Stated that she only wanted Pepcid. I explained that I was not able to rule out pathology to the baby or her. And that she must be closely monitored upstairs. She is verbalized understanding and she is adamant that she will not stay under any circumstances that she'll follow-up with her primary care provider. At this time patient also reports that the discomfort has been ongoing for the last 2 weeks and she has been both evaluated by her extractive metallurgist and PCP. She reports that her pain went away with pepcid. Patient Is displaying decision making skills. She'll follow up with her primary care provider tomorrow reportedly and her WAREHOUSE CHECKER tomorrow and return to ER if condition worsens. Case discussed in depth with Dr. Marvin. - Lab Data Result diagrams: 07/01/20 15:21 07/01/20 15:21 Lab Results 07/01/20 07/01/20 Range/Units 15:21 15:21 WBC 13.9 H (3.8-10.6) k/uL RBC 3.65 L (3.80-5.40) m/uL Hgb 10.9 L (11.4-16.0) gm/dL Hct 33.2 L (34.0-46.0) % MCV 91.1 (80.0-100.0) fL MCH 29.8 (25.0-35.0) pg MCHC 32.7 (31.0-37.0) g/dL RDW 13.5 (11.5-15.5) % Plt Count 274 (150-450) k/uL Neutrophils % 72 % Lymphocytes % 21 % Monocytes % 4 % Eosinophils % 1 % Basophils % 0 % Neutrophils # 10.0 H (1.3-7.7) k/uL Lymphocytes # 2.9 (1.0-4.8) k/uL Monocytes # 0.6 (0-1.0) k/uL Eosinophils # 0.2 (0-0.7) k/uL Basophils # 0.1 (0-0.2) k/uL Sodium 133 L (137-145) mmol/L Potassium 4.6 (3.5-5.1) mmol/L Chloride 111 H (98-107) mmol/L Carbon Dioxide 16 L (22-30) mmol/L Anion Gap 6 mmol/L BUN 4 L (7-17) mg/dL Creatinine 0.42 L (0.52-1.04) mg/dL Est GFR (CKD-EPI)AfAm >90 (>60 ml/min/1.73 sqM) Est GFR (CKD-EPI)NonAf >90 (>60 ml/min/1.73 sqM) Glucose 89 (74-99) mg/dL Calcium 9.1 (8.4-10.2) mg/dL Total Bilirubin 0.5 (0.2-1.3) mg/dL AST 30 (14-36) U/L ALT 7 (4-34) U/L Alkaline Phosphatase 101 (38-126) U/L Total Protein 5.7 L (6.3-8.2) g/dL Albumin 3.3 L (3.5-5.0) g/dL Lipase 36 (23-300) U/L Disposition Clinical Impression: Abdominal pain, , Nausea and vomiting Disposition: Left Against Medical Advice Condition: Undetermined Additional Instructions: Follow up with WAREHOUSE CHECKER and PCP today. Return to ED with any worsening symptoms. Is patient prescribed a controlled substance at d/c from ED?: No Referrals: Mukul Pena DO [Primary Care Provider] - 1-2 days
[2020-07-01 16:37] VITALS: BP 134/77; PULSE 68; TEMP 97.8
== END 2020-07-01 16:38 | disposition left against medical advice (07) ==
LOC: EC 14:37
DX: O21.2 Late vomiting of pregnancy (principal); O99.89 Other specified diseases and conditions complicating pregnancy, childbirth and the puerperium; R10.13 Epigastric pain; O99.113 Other diseases of the blood and blood-forming organs and certain disorders involving the immune mechanism complicating pregnancy, third trimester; D72.829 Elevated white blood cell count, unspecified; O99.331 Smoking (tobacco) complicating pregnancy, first trimester; F17.200 Nicotine dependence, unspecified, uncomplicated; Z88.0 Allergy status to penicillin; Z91.048 Other nonmedicinal substance allergy status; Z88.6 Allergy status to analgesic agent; Z91.041 Radiographic dye allergy status; Z91.018 Allergy to other foods; Z88.8 Allergy status to other drugs, medicaments and biological substances; Z79.899 Other long term (current) drug therapy; Z3A.35 35 weeks gestation of pregnancy; Z98.890 Other specified postprocedural states
CPT/HCPCS: 36415; 80053; 83690; 85025; 96374; 99285

== ENCOUNTER 2020-07-02 11:01 | Outpatient (CLI) | payer OTHER ==
[2020-07-02 11:23] VITALS: BP 127/61; PULSE 75; RESP 17; TEMP 98.5
--- NOTE | 2020-07-14 21:11 | P.MSEPDOC ---
Presenting Problems - Arrival Data Date of Arrival on Unit: 07/02/20 Time of Arrival on Unit: 11:01 Mode of Transport: Ambulatory - Complaint OB-Reason for Admission/Chief Complaint: NST Comment: pt here for nst per her pcp, pt was in ER last night with c/o n/v for 2 weeks,. last emesis was last night per pt, pt was started on pepcid, denies lof/vb/contractions,. denies complications with , abd soft and non tender Medical History - Information : 6 Para: 1 Term: 1 : 0 Abortions: Spontaneous or Elective: 4 Number of Living Children: 1 - Gestational Age Gestational Age by GRISELDA (wks/days): 35 Weeks and 4 Days - History Complications: Smoker Review of Systems - Review of Systems Constitutional: No problems Breast: No problems ENT: No problems Cardiovascular: No problems Respiratory: No problems Gastrointestinal: No problems Genitourinary: No problems Musculoskeletal: No problems Neurological: No problems Skin: No problems Vital Signs - Temperature Temperature: 98.5 F Temperature Source: Temporal Artery Scan - Pulse Right Brachial Pulse Rate: 75 Pulse Assessment Method: Automatic Cuff - Respirations Respiratory Rate: 17 Oxygen Delivery Method: Room Air O2 Sat by Pulse Oximetry: 98 - Blood Pressure Right Arm Blood Pressure: 127/61 Blood Pressure Mean: 83 Blood Pressure Source: Automatic Cuff Medical Screen Scoring (Pre) - Cervical Exam Dilation: Exam Deferred Effacement: Exam Deferred Membranes: Intact - Uterine Contractions Frequency: N/A Duration: N/A Intensity: N/A - Maternal Vital Signs Maternal Temperature: N/A Maternal Blood Pressure: N/A Signs of Preeclampsia: N/A Maternal Respirations: N/A - Maternal Trauma Maternal Trauma: N/A - Assessment - Baby A Baseline FHR: 130 Heart Rate - NICHD Category: Category I (Normal) = 0 NST: Reactive Position: N/A Station: N/A - Total Score - Baby A Total Score - Baby A: 0 - Total Score - Baby B Total Score - Baby B: 0 - Total Score - Baby C Total Score - Baby C: 0 - Level of Risk - Baby A Level of Risk - Baby A: Low (0-5) - Level of Risk - Baby B Level of Risk - Baby B: Low (0-5) - Level of Risk - Baby C Level of Risk - Baby C: Low (0-5) Physician Notification (Pre) - Physician Notified Physician Notified Date: 07/02/20 Physician Notified Time: 11:31 New Order Received: Yes (dc home) Disposition - Disposition OB Disposition: Discharge to home, Written follow up instructions reviewed Discharge Date: 07/02/20 Discharge Time: 11:34 I agree with the RN Medical Screening Exam: Yes Risk & Benefit of care provided described in d/c instruction: Yes Diagnosis: VOMITING OF , UNSPECIFIED
== END 2020-07-02 11:34 | disposition home or self-care (01) ==
LOC: FBPOP 11:01
PROVIDERS: ATTEND Obstetrics & Gynecology
DX: O21.2 Late vomiting of pregnancy (principal); Z3A.35 35 weeks gestation of pregnancy
CPT/HCPCS: 59025; G0463; 99213

== ENCOUNTER 2020-07-20 17:20 | Outpatient (CLI) | payer OTHER ==
[2020-07-20 17:59] LABS: Appearance,Urine Clear (Clear); Bilirubin,Urine Negative (Negative); Blood,Urine Negative (Negative); Color,Urine Colorless; Glucose,Urine (UA) Negative (Negative); Ketones,Urine Negative (Negative); Leukocyte Esterase,Urine Negative (Negative); Nitrite,Urine Negative (Negative); PH, Urine 6.5 (5.0-8.0); Protein,Urine Negative (Negative); Specific Gravity,Urine 1.002 (1.001-1.035); Urobilinogen,Urine <2.0 mg/dL (<2.0)
[2020-07-20 18:07] LABS: Protein/Creatinine Ratio,Urine 0.524
[2020-07-20 18:37] LABS: Basophils # (A) 0.1 k/uL (0-0.2); Basophils % (A) 0 %; Eosinophils # (A) 0.1 k/uL (0-0.7); Eosinophils % (A) 1 %; HCT 37.2 % (34.0-46.0); HGB 11.9 gm/dL (11.4-16.0); Lymphocytes # (A) 2.9 k/uL (1.0-4.8); Lymphocytes % (A) 23 %; MCH 29.4 pg (25.0-35.0); MCHC 31.9 g/dL (31.0-37.0); MCV 92.1 fL (80.0-100.0); Mean Platelet Volume 9.5; Monocytes # (A) 0.7 k/uL (0-1.0); Monocytes % (A) 5 %; Neutrophils # (A) 8.6 k/uL (1.3-7.7); Neutrophils % (A) 68 %; Platelet Count 281 k/uL (150-450); RBC 4.04 m/uL (3.80-5.40); RDW 13.8 % (11.5-15.5); WBC 12.6 k/uL (3.8-10.6)
[2020-07-20 18:41] LABS: ALT 8 U/L (4-34); AST 19 U/L (14-36); African American GFR (CKD) >90 (>60 ml/min/1.73 sqM); Blood Urea Nitrogen 5 mg/dL (7-17); LDH 323 U/L (313-618); Non-African American GFR(CKD) >90 (>60 ml/min/1.73 sqM); Uric Acid 5.1 mg/dL (3.7-7.4)
[2020-07-20 19:28] VITALS: BP 122/65; PULSE 81; RESP 16; TEMP 98.1
--- NOTE | 2020-07-20 20:48 | P.MSEPDOC ---
Presenting Problems - Arrival Data Date of Arrival on Unit: 07/20/20 Time of Arrival on Unit: 17:21 Mode of Transport: Ambulatory - Complaint OB-Reason for Admission/Chief Complaint: PIH Comment: pt arrived with pih workup orders Medical History - Information : 6 Para: 1 Term: 1 : 0 Abortions: Spontaneous or Elective: 0 Number of Living Children: 1 - Gestational Age Gestational Age by GRISELDA (wks/days): 38 Weeks and 1 Days Review of Systems - Review of Systems Constitutional: No problems Breast: No problems ENT: No problems Cardiovascular: No problems Respiratory: No problems Gastrointestinal: No problems Genitourinary: No problems Musculoskeletal: No problems Neurological: No problems Skin: No problems Vital Signs - Temperature Temperature: 98.1 F Temperature Source: Oral - Pulse Right Brachial Pulse Rate: 81 Pulse Assessment Method: Automatic Cuff - Respirations Respiratory Rate: 16 Oxygen Delivery Method: Room Air O2 Sat by Pulse Oximetry: 98 - Blood Pressure Right Arm Blood Pressure: 122/65 Blood Pressure Mean: 84 Blood Pressure Source: Automatic Cuff Medical Screen Scoring (Pre) - Cervical Exam Dilation: Exam Deferred Effacement: Exam Deferred Membranes: Intact - Uterine Contractions Frequency: > 5 minutes apart = 1 Duration: N/A Intensity: Contraction palpated strong = 1 - Maternal Vital Signs Maternal Temperature: N/A Maternal Blood Pressure: N/A Signs of Preeclampsia: Headache = 1 Maternal Respirations: N/A - Maternal Trauma Maternal Trauma: N/A - Assessment - Baby A Baseline FHR: 130 Heart Rate - NICHD Category: Category I (Normal) = 0 NST: Reactive Position: N/A Station: N/A - Total Score - Baby A Total Score - Baby A: 3 - Total Score - Baby B Total Score - Baby B: 3 - Total Score - Baby C Total Score - Baby C: 3 - Level of Risk - Baby A Level of Risk - Baby A: Low (0-5) - Level of Risk - Baby B Level of Risk - Baby B: Low (0-5) - Level of Risk - Baby C Level of Risk - Baby C: Low (0-5) Physician Notification (Pre) - Physician Notified Physician Notified Date: 07/20/20 Physician Notified Time: 18:50 New Order Received: Yes - Notification Comment Comment: ractive nst lab results and u/a results seen by dr figueroa b/o 122/65, 107/61,108/71. discharge patient to home with instructions Disposition - Disposition OB Disposition: Discharge to home Discharge Date: 07/20/20 Discharge Time: 19:18 I agree with the RN Medical Screening Exam: Yes Risk & Benefit of care provided described in d/c instruction: Yes Diagnosis: ELEVATED BLOOD-PRESSURE READING, W/O DIAGNOSIS OF HTN
== END 2020-07-20 19:18 | disposition home or self-care (01) ==
LOC: FBPOP 17:20
PROVIDERS: ATTEND Obstetrics & Gynecology
DX: O99.89 Other specified diseases and conditions complicating pregnancy, childbirth and the puerperium (principal); R03.0 Elevated blood-pressure reading, without diagnosis of hypertension; Z3A.38 38 weeks gestation of pregnancy
CPT/HCPCS: 59025; 82570; 84156; 82565; 83615; 84450; 84460; 84520; 84550; 85025; 81003; G0463; 99215

== ENCOUNTER 2020-07-22 22:38 | Outpatient (CLI) | payer OTHER ==
[2020-07-23 02:11] VITALS: BP 138/74; PULSE 86; RESP 16; TEMP 97.1
--- NOTE | 2020-07-23 13:27 | P.MSEPDOC ---
Presenting Problems - Arrival Data Date of Arrival on Unit: 07/23/20 Time of Arrival on Unit: 22:38 Mode of Transport: Ambulatory - Complaint OB-Reason for Admission/Chief Complaint: Possible Onset of Labor, Rule Out SROM Medical History - Information : 6 Para: 1 Term: 1 : 0 Abortions: Spontaneous or Elective: 4 Number of Living Children: 1 - Gestational Age Gestational Age by GRISELDA (wks/days): 38 Weeks and 4 Days - History Complications: Smoker Review of Systems - Review of Systems Constitutional: No problems Breast: No problems ENT: No problems Cardiovascular: No problems Respiratory: No problems Gastrointestinal: No problems Genitourinary: No problems Musculoskeletal: No problems Neurological: No problems Skin: No problems Vital Signs - Temperature Temperature: 97.1 F Temperature Source: Temporal Artery Scan - Pulse Right Supine Brachial Pulse Rate: 86 Pulse Assessment Method: Automatic Cuff - Respirations Respiratory Rate: 16 Oxygen Delivery Method: Room Air O2 Sat by Pulse Oximetry: 98 - Blood Pressure Right Arm Supine Blood Pressure: 138/74 Blood Pressure Mean: 95 Blood Pressure Source: Automatic Cuff Medical Screen Scoring (Pre) - Cervical Exam Dilation: 1-3 cm = 1 Effacement: More than 50% = 2 Membranes: Intact - Uterine Contractions Frequency: N/A Duration: N/A Intensity: N/A - Maternal Vital Signs Maternal Temperature: N/A Maternal Blood Pressure: N/A Maternal Respirations: N/A - Maternal Trauma Maternal Trauma: N/A - Assessment - Baby A Baseline FHR: 120 Heart Rate - NICHD Category: Category I (Normal) = 0 NST: Reactive - Total Score - Baby A Total Score - Baby A: 3 - Total Score - Baby B Total Score - Baby B: 3 - Total Score - Baby C Total Score - Baby C: 3 - Level of Risk - Baby A Level of Risk - Baby A: Low (0-5) - Level of Risk - Baby B Level of Risk - Baby B: Low (0-5) - Level of Risk - Baby C Level of Risk - Baby C: Low (0-5) Physician Notification (Pre) - Physician Notified Physician Notified Date: 07/22/20 Physician Notified Time: 23:10 New Order Received: Yes - Notification Comment Comment: Discharge to home Disposition - Disposition OB Disposition: Discharge to home Discharge Date: 07/22/20 Discharge Time: 23:20 I agree with the RN Medical Screening Exam: Yes Risk & Benefit of care provided described in d/c instruction: Yes Diagnosis: FALSE LABOR AT OR AFTER 37 COMPLETED WEEKS OF GESTATION
== END 2020-07-22 23:20 | disposition home or self-care (01) ==
LOC: FBPOP 22:38
PROVIDERS: ATTEND Obstetrics & Gynecology
DX: O47.1 False labor at or after 37 completed weeks of gestation (principal); Z3A.38 38 weeks gestation of pregnancy
CPT/HCPCS: 59025; 84112; G0463; 99213

== ENCOUNTER 2020-07-28 06:11 | Inpatient (IN) | payer OTHER ==
--- NOTE | 2020-07-27 17:06 | P.HPOB ---
History of Present Illness H&P Date: 07/27/20 Chief Complaint: Scheduled repeat section This is a 24 y.o. female, 6, para 1, with an estimated date of confinement of 08/02/2020, estimated gestational age of 39-2/7 weeks who presents for scheduled repeat section. She admits to good movement. Occasional contractions. labs: Hepatitis B surface antigen-neg RPR-NR Rubella-immune Blood type-O- Antibody screen-neg, Rhogam given at 28 weeks Hemoglobin-13 Toxoplasma- neg Random glucose-100 1 hr. GTT-132 3 hr. GTT-wnl GBS-neg OB Hx: . Hx 4 miscarriages. 1 at term for failure to progress. 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 Unemployed. Review of Systems Constitutional: Denies chills, Denies fever Eyes: denies blurred vision, denies pain Ears, nose, mouth and throat: Denies headache, Denies sore throat Cardiovascular: Denies chest pain, Denies shortness of breath Respiratory: Denies cough Gastrointestinal: Reports abdominal pain (Irreg. ctxs), Reports heartburn Genitourinary: Reports pelvic pain, Reports Musculoskeletal: Reports low back pain Integumentary: Denies pruritus, Denies rash Neurological: Denies numbness, Denies weakness Psychiatric: Denies anxiety, Denies depression Past Medical History Past Medical History: No Reported History History of Any Multi-Drug Resistant Organisms: None Reported Past Surgical History: Section Additional Past Surgical History / Comment(s): D&C, Past Anesthesia/Blood Transfusion Reactions: No Reported Reaction Past Psychological History: No Psychological Hx Reported Smoking Status: Current some day smoker Past Alcohol Use History: None Reported Past Drug Use History: None Reported - Past Family History Mother Family Medical History: Diabetes Mellitus, Hypertension Medications and Allergies Home Medications Medication Instructions Recorded Confirmed Type Pnv,Calcium 72/Iron/Folic Acid 1 tab PO DAILY 04/30/18 07/22/20 History [ Plus Tablet] Famotidine [Pepcid] 10 mg PO DAILY 07/02/20 07/22/20 History Allergies Allergy/AdvReac Type Severity Reaction Status Date / Time Penicillins Allergy Unknown Anaphylaxis Verified 07/28/20 06:27 adhesive tape Allergy Rash/Hives Verified 07/28/20 06:27 aspirin Allergy Rash/Hives Verified 07/28/20 06:27 banana Allergy Anaphylaxis Verified 07/28/20 06:27 Gadolinium-Containing Allergy Chest Pain Verified 07/28/20 06:27 Contrast Medi iodine Allergy Anaphylaxis Verified 07/28/20 06:27 naproxen Allergy Rash/Hives Verified 07/28/20 06:27 wool Allergy Rash/Hives Verified 07/28/20 06:27 chlorine Allergy Rash/Hives Uncoded 07/28/20 06:27 chlorophyll Allergy Unknown Uncoded 07/28/20 06:27 dust Allergy Wheezing Uncoded 07/28/20 06:27 pet dander Allergy Wheezing Uncoded 07/28/20 06:27 Exam Osteopathic Statement: *. No significant issues noted on an osteopathic structu ral exam other than those noted in the History and Physical/Consult. HEENT: within normal limits Heart: regular rate and rhythm Lungs: clear to auscultation bilaterally Abdomen: , non-tender Cervix: 1.5 cm/60%/-2 heart tones: 140's by doppler Extremities: neg. Bozena's Results Result Diagrams: 07/28/20 06:40 Assessment and Plan (1) Previous delivery affecting Current Visit: No Status: Acute Code(s): O34.219 - MATERNAL CARE FOR UNSP TYPE SCAR FROM PREVIOUS DEL SNOMED Code(s): 053843958 (2) 39 weeks gestation of Current Visit: No Status: Acute Code(s): Z3A.39 - 39 WEEKS GESTATION OF SNOMED Code(s): 64612049 Plan: Proceed with repeat low transverse section. I have discussed the risks, benefits, and alternative therapies for the above- mentioned procedure and for both sedation/anesthesia as well as necessary blood products administration, if indicated, as they pertain to this patient. The patient has indicated her understanding and acceptance of the risks and procedures discussed.
[2020-07-28] MEDS ORDERED: LIDOCAINE 1% (10MG/ML) FOR IV START INTRADERMA PRN (06:27)
[2020-07-28] MEDS ORDERED: LACTATED RINGERS 1,000 ML IV ONE (06:27)
[2020-07-28] MEDS ORDERED: CITRIC ACID-SODIUM CITRATE 15 ML CUP PO ONE (06:30)
[2020-07-28 06:54] LABS: Basophils # (A) 0.1 k/uL (0-0.2); Basophils % (A) 1 %; Eosinophils # (A) 0.2 k/uL (0-0.7); Eosinophils % (A) 2 %; HCT 36.5 % (34.0-46.0); HGB 11.7 gm/dL (11.4-16.0); Lymphocytes # (A) 3.1 k/uL (1.0-4.8); Lymphocytes % (A) 25 %; MCH 29.5 pg (25.0-35.0); MCHC 32.2 g/dL (31.0-37.0); MCV 91.6 fL (80.0-100.0); Mean Platelet Volume 9.4; Monocytes # (A) 0.5 k/uL (0-1.0); Monocytes % (A) 4 %; Neutrophils # (A) 8.6 k/uL (1.3-7.7); Neutrophils % (A) 68 %; Platelet Count 270 k/uL (150-450); RBC 3.98 m/uL (3.80-5.40); RDW 13.9 % (11.5-15.5); WBC 12.7 k/uL (3.8-10.6)
[2020-07-28] MEDS ORDERED: CLINDAMYCIN 900 MG in DEXTROSE 5% IN WATER 50 ML IVPB ONE ×2 (07:00)
[2020-07-28] MEDS ORDERED: GENTAMICIN 380 MG in SODIUM CHLORIDE 0.9% 100 ML IVPB ONE (07:00)
[2020-07-28] MEDS: LACTATED RINGERS 1,000 ML IV SCH ×3 (07:26→21:30)
[2020-07-28] MEDS ORDERED: MORPHINE SULFATE (PF) 0.3 MG/0.3 ML SYR ONE (07:52)
[2020-07-28] MEDS ORDERED: NALBUPHINE 10 MG/ML (1 ML AMP) ONE (07:52)
[2020-07-28] MEDS ORDERED: KETOROLAC 30 MG/ML 1 ML VIAL ONE (07:52)
[2020-07-28] MEDS ORDERED: MIDAZOLAM 2 MG/2 ML VIAL ONE (07:52)
[2020-07-28] MEDS ORDERED: ONDANSETRON 4 MG/2 ML VIAL ONE (07:52)
[2020-07-28] MEDS ORDERED: OXYTOCIN 10 UNIT/ML 1 ML VIAL ONE (07:52)
--- NOTE | 2020-07-28 08:40 | P.OP ---
Date of Procedure: 07/28/20 Preoperative Diagnosis: 1. Intrauterine at 39-2/7 weeks. 2. History of previous section. Postoperative Diagnosis: Same Procedure(s) Performed: Repeat low transverse section Anesthesia: spinal (Duramorph) Surgeon: Mireille Gaxiola Court Interpreter #1: Gulshan Alanis Estimated Blood Loss (ml): 200 Pathology: none sent Condition: stable Disposition: floor Indications for Procedure: This is a 24-year-old female 6 para 1 at 39-2/7 weeks who presents for scheduled repeat section. I have discussed the risks, benefits, and alternative therapies for the above- mentioned procedure and for both sedation/anesthesia as well as necessary blood products administration, if indicated, as they pertain to this patient. The patient has indicated her understanding and acceptance of the risks and procedures discussed. Operative Findings: A viable male is noted in the vertex presentation with scores of 9 at 1 minute and 9 at 5 minutes and infant weight of 6 lbs. 11 oz. Normal tubes and ovaries and uterus are noted. Description of Procedure: The patient is taken to the operating room where she is placed in the dorsal supine position with leftward tilt after spinal Duramorph anesthesia is given. She is prepped and draped in the normal sterile fashion. Skin was tested and found to be adequately anesthetized. A Pfannenstiel skin incision was made with a scalpel through the previous laparotomy scar. A second knife was used to carry the incision down to the underlying layer of fascia. The fascia was nicked in the midline with a scalpel and then extended laterally bilaterally with Ivan scissors. The anterior lip of the fascia was grasped with 2 Jules clamps and then dissected off the underlying rectus muscle in the midline with Ivan scissors. The inferior aspect of the fascial incision was grasped with 2 Jules clamps and dissected off the underlying rectus muscle and the midline with Ivan scissors. Next the peritoneum layer was tented up with 2 hemostats and then entered sharply with the scalpel. The incision is extended superiorly and inferiorly with Metzenbaum scissors. Next a DeLee retractor is placed. The vesicouterine peritoneum is entered sharply with Metzenbaum scissors and extended laterally bilaterally with Metzenbaum scissors and then the bladder flap is pushed inferiorly. The lower uterine segment is incised in transverse fashion with the scalpel and then bluntly entered with a hemostat. Clear fluid is noted. The incision was then extended laterally bilaterally with 2 fingers. Next the 's head is delivered through the incision. Nose and mouth are bulb suctioned. The remainder of the infant is easily delivered and placed on mother's abdomen. Cord is clamped and cut. is taken to warmer by nursing staff. Uterine fundus is gently massaged and placenta is delivered manually. Uterus is exteriorized and cleared of all clots and debris. Uterine incision is closed with 0 Vicryl suture in a running locked fashion. A second layer of 0 Vicryl suture is used in a running fashion for hemostasis. Once adequate hemostasis as assured, the vesicouterine peritoneum is reapproximated with 2-0 Vicryl suture in a running fashion. Posterior cul-de-sac is suctioned of all clots and debris. Uterus is returned to the abdomen. Incision is noted to be hemostatic. Peritoneal layer is closed with 0 Vicryl suture in a running fashion. Muscle layer is reapproximated with 0 Vicryl suture in interrupted fashion. Fascia layer is then closed with 0 PDS suture with 2 sutures meeting in the midline and the knots buried in either side and in the midline. The subcutaneous tissue was then closed with 2-0 Vicryl suture. Skin layer was then closed with anitha. All sponge and needle counts are correct. The patient is taken to recovery room in stable condition.
[2020-07-28] MEDS ORDERED: METOCLOPRAMIDE 5 MG/ML 2 ML VIAL IVP PRN (08:55)
[2020-07-28] MEDS ORDERED: diphenhydrAMINE 50 MG/ML 1 ML VIAL IVP PRN ×2 (08:55)
[2020-07-28] MEDS ORDERED: HYDROcodone/APAP 5-325MG 1 EACH TAB PO PRN (08:55)
[2020-07-28] MEDS ORDERED: diphenhydrAMINE 50 MG CAP PO PRN (08:55)
[2020-07-28] MEDS ORDERED: NALOXONE 0.4 MG/ML 1 ML VIAL IV PRN (08:55)
[2020-07-28] MEDS ORDERED: SIMETHICONE 80 MG CHEWABLE PO PRN (08:55)
[2020-07-28] MEDS ORDERED: LANOLIN CREAM 5 GM TUBE TOPICAL PRN (08:55)
[2020-07-28] MEDS ORDERED: diphenhydrAMINE 25 MG CAP PO PRN (08:55)
[2020-07-28] MEDS ORDERED: OXYTOCIN 20 UNITS/1000 ML NS 1,000 ML IV SCH (08:55)
[2020-07-28] MEDS ORDERED: ZOLPIDEM 5 MG TAB PO PRN (08:55)
[2020-07-28] MEDS ORDERED: HYDROcodone/APAP 7.5-325MG 1 EACH TAB PO PRN (08:55)
[2020-07-28] MEDS ORDERED: ONDANSETRON 4 MG/2 ML VIAL IVP PRN (08:55)
[2020-07-28] MEDS: PRENATAL VIT-IRON-FOLIC ACID 1 EACH CAP PO SCH (09:41)
[2020-07-28] MEDS ORDERED: Rhogam IMMUNE GLOBULIN 1,500 UNIT/1 ML IM ONE (15:37)
[2020-07-28] MEDS: KETOROLAC 15 MG/ML 1 ML VIAL IVP PRN ×2 (16:37→23:30)
[2020-07-28] MEDS: SENNOSIDES-DOCUSATE SODIUM 1 EACH TAB PO SCH (20:14)
[2020-07-29 06:16] LABS: Basophils # (A) 0.1 k/uL (0-0.2); Basophils % (A) 1 %; Eosinophils # (A) 0.2 k/uL (0-0.7); Eosinophils % (A) 2 %; HCT 32.1 % (34.0-46.0); HGB 10.5 gm/dL (11.4-16.0); Lymphocytes # (A) 3.2 k/uL (1.0-4.8); Lymphocytes % (A) 30 %; MCHC 32.6 g/dL (31.0-37.0); Mean Platelet Volume 9.6; Monocytes # (A) 0.7 k/uL (0-1.0); Monocytes % (A) 7 %; Neutrophils # (A) 6.5 k/uL (1.3-7.7); Neutrophils % (A) 60 %; Platelet Count 228 k/uL (150-450); RBC 3.49 m/uL (3.80-5.40); RDW 13.8 % (11.5-15.5); WBC 10.9 k/uL (3.8-10.6)
--- NOTE | 2020-07-29 08:51 | P.PNOBGPC ---
Subjective - Subjective Principal diagnosis: Status post repeat section postoperative day #1 Interval history: Patient doing well. Lochia is decreasing. Pain is fairly well controlled. She is not taking anything for oral pain medication at this time. She is burping but has not passed gas or had a bowel movement yet. She is tolerating regular diet. She is breast-feeding. Patient reports: Reports appetite normal, Reports voiding normally, Reports pain well controlled, Reports ambulating normally Pender: doing well, nursing well Objective - Vital Signs Latest vital signs: Vital Signs Temp Pulse Pulse Resp BP Pulse Ox 07/29/20 07:55 98 F 62 15 121/74 98 07/29/20 04:00 97.7 F 57 L 16 114/55 97 07/29/20 00:00 51 L 16 116/53 98 07/28/20 20:00 98.4 F 59 L 18 120/55 99 07/28/20 16:00 97.7 F 56 L 16 132/73 07/28/20 12:00 97.8 F 56 L 16 109/57 97 07/28/20 10:45 45 L 16 112/57 07/28/20 10:13 97.2 F L 59 L 16 120/57 07/28/20 09:42 47 L 16 108/59 99 07/28/20 09:31 59 L 16 118/57 98 07/28/20 09:16 57 L 16 118/55 98 07/28/20 09:01 70 16 118/62 97 Intake and Output 07/28/20 07/29/20 07/29/20 22:59 06:59 14:59 Output Total 951 500 Balance -951 -500 Output: Urine 950 500 Emesis 1 Other: Voiding Method Toilet # Voids 1 - Exam Extremities: Present: normal. Absent: tenderness Abdomen: Present: normal appearance, soft (Positive bowel sounds 4). Absent: distention, tenderness Incision: Present: normal, dry, intact. Absent: erythematous Uterus: Present: normal, firm. Absent: tenderness - Labs Labs: Abnormal Lab Results - Last 24 Hours (Table) 07/29/20 Range/Units 05:42 WBC 10.9 H (3.8-10.6) k/uL RBC 3.49 L (3.80-5.40) m/uL Hgb 10.5 L (11.4-16.0) gm/dL Hct 32.1 L (34.0-46.0) % Assessment and Plan Assessment: Status post repeat section postoperative day #1 (1) Previous delivery affecting Current Visit: No Status: Acute Code(s): O34.219 - MATERNAL CARE FOR UNSP TYPE SCAR FROM PREVIOUS DEL SNOMED Code(s): 229623490 (2) 39 weeks gestation of Current Visit: No Status: Acute Code(s): Z3A.39 - 39 WEEKS GESTATION OF SNOMED Code(s): 85128337 Plan: Continue with postoperative care. Will switch to oral pain medication today. Anticipate discharge home tomorrow.
[2020-07-29] MEDS: SENNOSIDES-DOCUSATE SODIUM 1 EACH TAB PO SCH ×2 (08:59→19:30)
[2020-07-29] MEDS: IBUPROFEN 600 MG TAB PO PRN ×3 (08:59→23:05)
--- NOTE | 2020-07-29 09:20 | P.PN ---
Progress Note - Text Progress Note Date: 07/29/20 Postoperative day 1 status post section under spinal anesthesia, and i ntrathecal morphine given for postoperative analgesia, patient doing well, there is no anesthesia related complications, Patient had no headache, vital signs stable , Assessment and plan= postop day 1 status post , doing well there is no anesthesia related complication. note =Patient was seen at 7 AM in the morning
[2020-07-29] MEDS: PRENATAL VIT-IRON-FOLIC ACID 1 EACH CAP PO SCH (09:22)
[2020-07-29] MEDS: LACTATED RINGERS 1,000 ML IV SCH (09:22)
[2020-07-29] MEDS: ACETAMINOPHEN TAB 325 MG TAB PO PRN (19:30)
[2020-07-29 23:18] VITALS: RESP 16
[2020-07-30] MEDS: IBUPROFEN 600 MG TAB PO PRN (06:07)
[2020-07-30] MEDS: ACETAMINOPHEN TAB 325 MG TAB PO PRN (08:50)
[2020-07-30] MEDS: SENNOSIDES-DOCUSATE SODIUM 1 EACH TAB PO SCH (08:51)
[2020-07-30 09:12] VITALS: BP 127/75; PULSE 58; TEMP 98.9
--- NOTE | 2020-07-30 10:42 | P.DS ---
Providers Date of admission: 07/28/20 06:11 Expected date of discharge: 07/30/20 Attending physician: Mireille Gaxiola Primary care physician: Stated None Hospital Course: Patient seen and evaluated postop day 2. She's angling, voiding and tolerating her diet. She voices no complaint other than a small cough. She relates the cough has been slightly worse her last 24 hours but she thinks it much of it may be due to the fact that she is a smoker and she is not head a certain a couple of days and likely her cilia are recovering. I did take it wasn't her lungs may are very clear to auscultation there is no shortness of breath no dyspnea or other signs or symptoms of other respiratory issues. Prescriptions for her pain medicine were for her to her pharmacy and discharge instructions were thoroughly reviewed. On physical exam vital signs are stable and afebrile. Heart regular, lungs clear, extremities without pain. Abdomen soft uterus is firm incision is clean dry and intact. Assessment postop day 2. Plan discharged home follow up with Dr. Casiano in 1 week we'll remove anitha prior to discharge. Patient Condition at Discharge: Good Plan - Discharge Summary New Discharge Prescriptions: New Ibuprofen [Motrin] 600 mg PO Q6HR PRN #60 tab PRN Reason: Mild Pain Or Fever >= 100.5 No Action Pnv,Calcium 72/Iron/Folic Acid [ Plus Tablet] 1 tab PO DAILY Famotidine [Pepcid] 10 mg PO DAILY Discharge Medication List Pnv,Calcium 72/Iron/Folic Acid [ Plus Tablet] 1 tab PO DAILY 04/30/18 [History] Famotidine [Pepcid] 10 mg PO DAILY 07/02/20 [History] Ibuprofen [Motrin] 600 mg PO Q6HR PRN #60 tab 07/29/20 [Rx] Follow up Appointment(s)/Referral(s): Mireille Gaxiola DO [Doctor of Osteopathic Medicine] - 1 Week Activity/Diet/Wound Care/Special Instructions: Instructions 1. Do not begin any exercise program for 3 weeks. 2. Do not resume sexual relations for 3 weeks or longer if uncomfortable. 3. You may take tub baths or showers at any time. 4. You may use tampons if desired after 3 weeks. 5. Keep the area of episiotomy (stitches) clean and dry. 6. If you are not nursing, wear a good fitting, supportive bra during the day and limit fluid intake for at least 1 week to prevent breast engorgement. 7. Call the office, [phone], within the next week to make appointment for your 6 week checkup if it has not already been made. 8. Report any of the following occurrences to the doctor promptly: a. Heavy, excessive bleeding b. Chills, fever c. Burning or frequency of urination d. Pain or redness and breasts if nursing e. Increasing pain or swelling in episiotomy (stitches). In addition to the above instructions, the following additional should be followed: 1. No heavy lifting or straining (exercising) until after 6 week checkup. 2. Keep abdominal incision clean and dry: You may wear a dressing if more comfortable. 3. Make office appointment for 10 days after going home or as instructed by her doctor. Discharge Disposition: HOME SELF-CARE
== END 2020-07-30 11:43 | disposition home or self-care (01) | DRG 788 ==
LOC: 4FBP 06:11
PROVIDERS: ADMIT Obstetrics & Gynecology; ATTEND Obstetrics & Gynecology
PROC: 10D00Z1 Extraction of Products of Conception, Low, Open Approach (ICD-10-PCS; principal; 2020-07-28 08:00)
DX: O34.211 Maternal care for low transverse scar from previous cesarean delivery (principal); O99.334 Smoking (tobacco) complicating childbirth; F17.200 Nicotine dependence, unspecified, uncomplicated; O99.62 Diseases of the digestive system complicating childbirth; K21.9 Gastro-esophageal reflux disease without esophagitis; Z37.0 Single live birth; Z3A.39 39 weeks gestation of pregnancy; Z79.899 Other long term (current) drug therapy; Z82.49 Family history of ischemic heart disease and other diseases of the circulatory system; Z83.3 Family history of diabetes mellitus; Z88.6 Allergy status to analgesic agent; Z91.041 Radiographic dye allergy status; Z88.0 Allergy status to penicillin; Z91.018 Allergy to other foods; Z91.048 Other nonmedicinal substance allergy status
CPT/HCPCS: 85025; 85461; 86850; 86870; 86880; 86900; 86901

== ENCOUNTER 2020-08-01 15:03 | Emergency (ER) | payer OTHER ==
[2020-08-01 15:25] VITALS: TEMP 98.2
[2020-08-01] MEDS ORDERED: SODIUM CHLORIDE 0.9% 1,000 ML IV STA (15:54)
--- NOTE | 2020-08-01 16:12 | ED ---
Recheck HPI - General Chief Complaint: Recheck/Abnormal Lab/Rx Stated Complaint: sent by obgyn Time Seen by Provider: 08/01/20 15:27 Source: patient Mode of arrival: ambulatory Limitations: no limitations - History of Present Illness Initial Comments: 24-year-old female patient who is 4 days after delivering a baby boy via section with Dr. Gaxiola presents to the emergency department today for evaluation of headaches and visual disturbance. Patient is G7, P2. Patient states that since delivery she has been having episodes where her vision will go white and last approximately 10 minutes at a time. Patient states this is occurring about three times per day in the afternoons. Patient's states she is also been having intermittent headaches. Patient states she feels that her equilibrium is off and she feels generally weak. Patient is reporting back pain and lower abdominal discomfort. States she is having some vaginal bleeding, denies soaking through any pads. She is eating and drinking without difficulty. She denies any fever or chills. Denies nausea or vomiting. Denies any weakness, numbness, or tingling to her extremities. Patient is RH negative. Denies any blood pressure issues during her . Patient denies any recent rash, fever, chills, cough, shortness of breath, diarrhea, constipation, back pain, numbness, tingling, dizziness, weakness, hematuria, dysuria, urinary urgency, urinary frequency, or any other complaints. - Related Data Home Medications Medication Instructions Recorded Confirmed Pnv,Calcium 72/Iron/Folic Acid 1 tab PO DAILY 04/30/18 08/01/20 [ Plus Tablet] Previous Rx's Medication Instructions Recorded Ibuprofen [Motrin] 600 mg PO Q6HR PRN #60 tab 07/29/20 Allergies Allergy/AdvReac Type Severity Reaction Status Date / Time Penicillins Allergy Unknown Anaphylaxis Verified 08/01/20 16:57 adhesive tape Allergy Rash/Hives Verified 08/01/20 16:57 aspirin Allergy Rash/Hives Verified 08/01/20 16:57 banana Allergy Anaphylaxis Verified 08/01/20 16:57 Gadolinium-Containing Allergy Chest Pain Verified 08/01/20 16:57 Contrast Medi iodine Allergy Anaphylaxis Verified 08/01/20 16:57 naproxen Allergy Rash/Hives Verified 08/01/20 16:57 wool Allergy Rash/Hives Verified 08/01/20 16:57 chlorine Allergy Rash/Hives Uncoded 08/01/20 16:57 chlorophyll Allergy Unknown Uncoded 08/01/20 16:57 dust Allergy Wheezing Uncoded 08/01/20 16:57 pet dander Allergy Wheezing Uncoded 08/01/20 16:57 Review of Systems ROS Statement: Those systems with pertinent positive or pertinent negative responses have been documented in the HPI. ROS Other: All systems not noted in ROS Statement are negative. Past Medical History Past Medical History: No Reported History History of Any Multi-Drug Resistant Organisms: None Reported Past Surgical History: No Surgical Hx Reported, Section Additional Past Surgical History / Comment(s): D&C, Past Anesthesia/Blood Transfusion Reactions: No Reported Reaction Past Psychological History: No Psychological Hx Reported Smoking Status: Current every day smoker - Past Family History Mother Family Medical History: Diabetes Mellitus, Hypertension General Exam Limitations: no limitations General appearance: alert, in no apparent distress, other (This is a well- developed, well-nourished adult female patient in no acute distress. Vital signs upon presentation are temperature 98.2F, pulse 58, respirations 18, blood pressure 153/72, pulse ox 99% on room air.) Eye exam: Present: normal appearance, PERRL, EOMI. Absent: scleral icterus, conjunctival injection, nystagmus, periorbital swelling ENT exam: Present: mucous membranes moist. Absent: normal exam, normal orophar ynx (Pharyngeal erythema, tonsillar hypertrophy. There is white papules noted to the soft palate.) Respiratory exam: Present: normal lung sounds bilaterally. Absent: respiratory distress, wheezes, rales, rhonchi, stridor Cardiovascular Exam: Present: normal rhythm, bradycardia, normal heart sounds. Absent: systolic murmur, diastolic murmur, rubs, gallop, clicks GI/Abdominal exam: Present: soft, normal bowel sounds. Absent: distended, tenderness, guarding, rebound, rigid Extremities exam: Present: normal inspection, full ROM, normal capillary refill. Absent: tenderness, pedal edema, joint swelling, calf tenderness Neurological exam: Present: alert, oriented X3, CN II-XII intact Expanded Patient oriented to: Present: person, place, time Speech: Present: fluid speech Cranial nerves: Nystagmus: Normal Motor strength exam: RUE: 5, LUE: 5, RLE: 5, LLE: 5 Psychiatric exam: Present: normal affect, normal mood Skin exam: Present: warm, dry, intact, normal color. Absent: rash Course Vital Signs 08/01/20 08/01/20 08/01/20 15:23 16:55 19:57 Temperature 98.2 F Pulse Rate 58 L 53 L 49 L Respiratory 18 18 16 Rate Blood Pressure 153/72 143/86 136/89 O2 Sat by Pulse 99 99 98 Oximetry Medical Decision Making - Medical Decision Making 24-year-old female patient who is 4 days post after having a , presents to the emergency department today for evaluation of headaches and episodes where she loses her vision. Patient states that at least three times daily she was having episodes where her vision will go white, she is unable to see, episodes last approximately 10 minutes. Physical examination did reveal an intact suprapubic incision site. No abnormal drainage. She is neurologically intact with no focal deficits. Labs reviewed and were unremarkable. Patient's workup was negative for preeclampsia, blood pressures did improve while here. An EKG was obtained and did reveal sinus bradycardia with a sinus arrhythmia with rates in the 40s. She remained in the 40s to low 50s on cardiac monitoring while in the department. We did perform computed tomography scan with contrast, there is no evidence for venous sinus thrombus. Given abnormal heart rate and complaints of chest discomfort we did discuss possibility of cardiomyopathy as a cause for her symptoms. Plan was for admission I did discuss this with the patient. Patient was quite upset due to having a at home. She is breast-feeding and states there is no milk at home. We had a lengthy discussion regarding admission, need for cardiology consult, and risks of leaving. She did understand that she could or have permanent disability if she is away from the hospital. She verbalizes understanding of the risks. She plans to go home and get things in order for her children and then return around 5am or 6am to be admitted. She was provided with cardiology follow up and primary care follow up information should she have difficulty returning. Patient verbalizes understanding. - Lab Data Result diagrams: 08/01/20 16:20 08/01/20 16:20 Lab Results 08/01/20 08/01/20 08/01/20 Range/Units 16:20 16:20 16:40 WBC 8.7 (3.8-10.6) k/uL RBC 3.85 (3.80-5.40) m/uL Hgb 11.4 (11.4-16.0) gm/dL Hct 35.3 (34.0-46.0) % MCV 91.5 (80.0-100.0) fL MCH 29.6 (25.0-35.0) pg MCHC 32.4 (31.0-37.0) g/dL RDW 13.5 (11.5-15.5) % Plt Count 317 (150-450) k/uL Neutrophils % 64 % Lymphocytes % 26 % Monocytes % 4 % Eosinophils % 4 % Basophils % 1 % Neutrophils # 5.5 (1.3-7.7) k/uL Lymphocytes # 2.2 (1.0-4.8) k/uL Monocytes # 0.3 (0-1.0) k/uL Eosinophils # 0.3 (0-0.7) k/uL Basophils # 0.1 (0-0.2) k/uL Sodium 138 (137-145) mmol/L Potassium 4.4 (3.5-5.1) mmol/L Chloride 112 H (98-107) mmol/L Carbon Dioxide 21 L (22-30) mmol/L Anion Gap 5 mmol/L BUN 10 (7-17) mg/dL Creatinine 0.64 (0.52-1.04) mg/dL Est GFR (CKD-EPI)AfAm >90 (>60 ml/min/1.73 sqM) Est GFR (CKD-EPI)NonAf >90 (>60 ml/min/1.73 sqM) Glucose 83 (74-99) mg/dL Uric Acid 6.1 (3.7-7.4) mg/dL Calcium 9.2 (8.4-10.2) mg/dL Total Bilirubin 0.3 (0.2-1.3) mg/dL AST 28 (14-36) U/L ALT 18 (4-34) U/L Alkaline Phosphatase 103 (38-126) U/L Lactate Dehydrogenase 465 (313-618) U/L Total Protein 5.8 L (6.3-8.2) g/dL Albumin 3.5 (3.5-5.0) g/dL Urine Color Colorless Urine Appearance Clear (Clear) Urine pH 6.5 (5.0-8.0) Ur Specific [place] 1.004 (1.001-1.035) Urine Protein Negative (Negative) Urine Glucose (UA) Negative (Negative) Urine Ketones Negative (Negative) Urine Blood Moderate H (Negative) Urine Nitrite Negative (Negative) Urine Bilirubin Negative (Negative) Urine Urobilinogen <2.0 (<2.0) mg/dL Ur Leukocyte Esterase Negative (Negative) Urine RBC 1 (0-5) /hpf Urine WBC 4 (0-5) /hpf Ur Squamous Epith Cells 1 (0-4) /hpf Urine Bacteria Occasional H (None) /hpf Group A Strep Rapid (Negative) 08/01/20 Range/Units 16:40 WBC (3.8-10.6) k/uL RBC (3.80-5.40) m/uL Hgb (11.4-16.0) gm/dL Hct (34.0-46.0) % MCV (80.0-100.0) fL MCH (25.0-35.0) pg MCHC (31.0-37.0) g/dL RDW (11.5-15.5) % Plt Count (150-450) k/uL Neutrophils % % Lymphocytes % % Monocytes % % Eosinophils % % Basophils % % Neutrophils # (1.3-7.7) k/uL Lymphocytes # (1.0-4.8) k/uL Monocytes # (0-1.0) k/uL Eosinophils # (0-0.7) k/uL Basophils # (0-0.2) k/uL Sodium (137-145) mmol/L Potassium (3.5-5.1) mmol/L Chloride (98-107) mmol/L Carbon Dioxide (22-30) mmol/L Anion Gap mmol/L BUN (7-17) mg/dL Creatinine (0.52-1.04) mg/dL Est GFR (CKD-EPI)AfAm (>60 ml/min/1.73 sqM) Est GFR (CKD-EPI)NonAf (>60 ml/min/1.73 sqM) Glucose (74-99) mg/dL Uric Acid (3.7-7.4) mg/dL Calcium (8.4-10.2) mg/dL Total Bilirubin (0.2-1.3) mg/dL AST (14-36) U/L ALT (4-34) U/L Alkaline Phosphatase (38-126) U/L Lactate Dehydrogenase (313-618) U/L Total Protein (6.3-8.2) g/dL Albumin (3.5-5.0) g/dL Urine Color Urine Appearance (Clear) Urine pH (5.0-8.0) Ur Specific [place] (1.001-1.035) Urine Protein (Negative) Urine Glucose (UA) (Negative) Urine Ketones (Negative) Urine Blood (Negative) Urine Nitrite (Negative) Urine Bilirubin (Negative) Urine Urobilinogen (<2.0) mg/dL Ur Leukocyte Esterase (Negative) Urine RBC (0-5) /hpf Urine WBC (0-5) /hpf Ur Squamous Epith Cells (0-4) /hpf Urine Bacteria (None) /hpf Group A Strep Rapid Negative (Negative) - EKG Data -: EKG Interpreted by [facility] EKG Comments: EKG obtained at 1639 shows sinus bradycardia with a sinus arrhythmia. Ve ntricular rate is 46, HI interval 170, QRS duration 82, QT 444, QTC 388. No evidence of ST elevation or depression. - Radiology Data Radiology results: report reviewed, image reviewed CT brain with contrast was obtained. Report was reviewed in its entirety. Impression by Dr. Peralta shows normal exam. No evidence of sinus vein thrombosis. Disposition Clinical Impression: Bradycardia, Visual disturbance, Headache, Pharyngitis Disposition: Left Against Medical Advice Condition: Fair Instructions (If sedation given, give patient instructions): Pharyngitis (ED), Acute Headache (ED), Bradycardia (ED) Additional Instructions: Return to the emergency department for admission. If unable to do so follow up with your primary care physician tomorrow morning to discuss symptoms. Or call cardiology office for follow up appointment. Return to the emergency department immediately for any new, worsening, or concerning symptoms. Is patient prescribed a controlled substance at d/c from ED?: No Referrals: Mukul Pena DO [Primary Care Provider] - 1-2 days Yaw Grigsby MD [STAFF PHYSICIAN] - 1-2 days Time of Disposition: 20:22
[2020-08-01 16:34] LABS: Basophils # (A) 0.1 k/uL (0-0.2); Basophils % (A) 1 %; Eosinophils # (A) 0.3 k/uL (0-0.7); Eosinophils % (A) 4 %; HCT 35.3 % (34.0-46.0); HGB 11.4 gm/dL (11.4-16.0); Lymphocytes # (A) 2.2 k/uL (1.0-4.8); Lymphocytes % (A) 26 %; MCH 29.6 pg (25.0-35.0); MCHC 32.4 g/dL (31.0-37.0); MCV 91.5 fL (80.0-100.0); Mean Platelet Volume 8.3; Monocytes # (A) 0.3 k/uL (0-1.0); Monocytes % (A) 4 %; Neutrophils # (A) 5.5 k/uL (1.3-7.7); Neutrophils % (A) 64 %; Platelet Count 317 k/uL (150-450); RBC 3.85 m/uL (3.80-5.40); RDW 13.5 % (11.5-15.5); WBC 8.7 k/uL (3.8-10.6)
[2020-08-01 16:44] LABS: ALT 18 U/L (4-34); AST 28 U/L (14-36); African American GFR (CKD) >90 (>60 ml/min/1.73 sqM); Albumin 3.5 g/dL (3.5-5.0); Alkaline Phosphatase 103 U/L (38-126); Anion Gap 5 mmol/L; Blood Urea Nitrogen 10 mg/dL (7-17); Calcium 9.2 mg/dL (8.4-10.2); Carbon Dioxide 21 mmol/L (22-30); Chloride 112 mmol/L (98-107); Glucose 83 mg/dL (74-99); LDH 465 U/L (313-618); Non-African American GFR(CKD) >90 (>60 ml/min/1.73 sqM); Potassium 4.4 mmol/L (3.5-5.1); Sodium 138 mmol/L (137-145); Total Bilirubin 0.3 mg/dL (0.2-1.3); Total Protein 5.8 g/dL (6.3-8.2); Uric Acid 6.1 mg/dL (3.7-7.4)
[2020-08-01] MEDS ORDERED: KETOROLAC 15 MG/ML 1 ML VIAL IVP STA (16:48)
[2020-08-01 17:00] LABS: Appearance,Urine Clear (Clear); Bacteria,Urine Occasional /hpf; Bilirubin,Urine Negative (Negative); Blood,Urine Moderate (Negative); Color,Urine Colorless; Glucose,Urine (UA) Negative (Negative); Ketones,Urine Negative (Negative); Leukocyte Esterase,Urine Negative (Negative); Nitrite,Urine Negative (Negative); PH, Urine 6.5 (5.0-8.0); Protein,Urine Negative (Negative); RBC,Urine 1 /hpf (0-5); Specific Gravity,Urine 1.004 (1.001-1.035); Squamous Epithelial Cell,Urine 1 /hpf (0-4); Urobilinogen,Urine <2.0 mg/dL (<2.0); WBC,Urine 4 /hpf (0-5)
[2020-08-01] MEDS ORDERED: RX INFO: IV CONTRAST WAS GIVEN 1 EACH MISC MISCELLANE PRN (17:24)
[2020-08-01] MEDS ORDERED: FAMOTIDINE 20 MG/2 ML VIAL IV STA (17:24)
[2020-08-01] MEDS ORDERED: methylPREDNISolone SOD SUCCI 125 MG/2 ML VIAL IV STA (17:24)
[2020-08-01] MEDS ORDERED: diphenhydrAMINE 50 MG/ML 1 ML VIAL IVP STA (17:24)
--- NOTE | 2020-08-01 19:57 | CT ---
EXAMINATION TYPE: CT brain w con DATE OF EXAM: 08/01/2020 COMPARISON: None HISTORY: [facility] post CT DLP: 1087.4 mGycm Automated exposure control for dose reduction was used. CONTRAST: Performed with IV Contrast, patient injected with 100 mL of Isovue 300. Ventricles and sulci appear normal. There is no mass effect nor midline shift. There is no sign of in tracranial hemorrhage. There is no pathologic enhancement. There is normal contrast opacification of the venous sinuses. I see no sign of sinus thrombosis. IMPRESSION: Normal exam. No evidence of sinus vein thrombosis.
[2020-08-01 19:59] VITALS: RESP 16
[2020-08-01 21:00] VITALS: BP 132/80; PULSE 48
== END 2020-08-01 20:42 | disposition left against medical advice (07) ==
LOC: EC 15:03
DX: J02.9 Acute pharyngitis, unspecified (principal); H53.9 Unspecified visual disturbance; R00.1 Bradycardia, unspecified; R51 Headache; Z53.29 Procedure and treatment not carried out because of patient's decision for other reasons; F17.200 Nicotine dependence, unspecified, uncomplicated; Z88.0 Allergy status to penicillin; Z91.048 Other nonmedicinal substance allergy status; Z88.6 Allergy status to analgesic agent; Z91.018 Allergy to other foods; Z91.041 Radiographic dye allergy status; Z91.09 Other allergy status, other than to drugs and biological substances
CPT/HCPCS: 36415; 93005; 80053; 83615; 84550; 85025; 81001; 87081; 87430; 70460; 99284; 96374; 96375 ×3; 96361; J1200; J2930; J1885; Q9967

== ENCOUNTER 2020-08-02 06:33 | Inpatient (IN) | payer OTHER ==
[2020-08-02] MEDS ORDERED: LABETALOL 5 MG/ML VIAL MDV IVP STA (06:43)
[2020-08-02] MEDS ORDERED: SODIUM CHLORIDE 0.9% 1,000 ML IV STA (06:48)
[2020-08-02] MEDS ORDERED: hydrALAZINE HCL 20 MG/ML 1 ML VIAL IVP STA (06:49)
--- NOTE | 2020-08-02 07:04 | ED ---
General Adult HPI - General Source: patient, family, RN notes reviewed Mode of arrival: ambulatory Limitations: no limitations <Naldo Wilhelm P - Last Filed: 08/02/20 08:15> <Kasey Moore P - Last Filed: 08/02/20 08:38> - General Chief complaint: Chest Pain Stated complaint: chest pain Time Seen by Provider: 08/02/20 06:41 - History of Present Illness Initial comments: 24-year-old female presents to the emergency room for multiple complaints. Patient has had headaches and visual changes since shortly after her 5 days ago. States that the visual changes consist of where her vision goes white for about 10 seconds and then resolves. Patient reports she has also been having chest pain for the past 3 or 4 days. Denies this worsening with breathing. Patient states she thought this was normal but is now concerned he may not be. 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 She was found to be bradycardic and admission was recommended however patient left AMA to arrange child welfare manager. Patient presents today for admission to the hospital for management of her chest pain.Patient has no other complaints at this time including shortness of breath, abdominal pain, nausea or vomiting, headache, or visual changes. (Naldo Wilhelm) - Related Data Home Medications Medication Instructions Recorded Confirmed Pnv,Calcium 72/Iron/Folic Acid 1 tab PO DAILY 04/30/18 08/02/20 [ Plus Tablet] Fluticasone Nasal [place] [Flonase 1 - 2 spray EA NOSTRIL DAILY PRN 08/02/20 08/02/20 Nasal [place]] Ibuprofen [Motrin] 600 mg PO Q6HR 08/02/20 08/02/20 Loratadine [Claritin] 10 mg PO DAILY PRN 08/02/20 08/02/20 Allergies Allergy/AdvReac Type Severity Reaction Status Date / Time Penicillins Allergy Unknown Anaphylaxis Verified 08/02/20 07:42 adhesive tape Allergy Rash/Hives Verified 08/02/20 07:42 aspirin Allergy Rash/Hives Verified 08/02/20 07:42 banana Allergy Anaphylaxis Verified 08/02/20 07:42 Gadolinium-Containing Allergy Chest Pain Verified 08/02/20 07:42 Contrast Medi iodine Allergy Anaphylaxis Verified 08/02/20 07:42 naproxen Allergy Rash/Hives Verified 08/02/20 07:42 wool Allergy Rash/Hives Verified 08/02/20 07:42 chlorine Allergy Rash/Hives Uncoded 08/02/20 06:38 chlorophyll Allergy Unknown Uncoded 08/02/20 07:42 dust AdvReac Wheezing Uncoded 08/02/20 07:42 pet dander AdvReac Wheezing Uncoded 08/02/20 07:42 Review of Systems ROS Other: All systems not noted in ROS Statement are negative. <Naldo Wilhelm P - Last Filed: 08/02/20 08:15> ROS Other: All systems not noted in ROS Statement are negative. <Kasey Moore P - Last Filed: 08/02/20 08:38> ROS Statement: Those systems with pertinent positive or pertinent negative responses have been documented in the HPI. Past Medical History Past Medical History: No Reported History History of Any Multi-Drug Resistant Organisms: None Reported Past Surgical History: No Surgical Hx Reported, Section Additional Past Surgical History / Comment(s): D&C, Past Anesthesia/Blood Transfusion Reactions: No Reported Reaction Past Psychological History: No Psychological Hx Reported Smoking Status: Current every day smoker Past Alcohol Use History: None Reported Past Drug Use History: None Reported - Past Family History Mother Family Medical History: Diabetes Mellitus, Hypertension <Naldo Wilhelm P - Last Filed: 08/02/20 08:15> General Exam Limitations: no limitations General appearance: alert, in no apparent distress Head exam: Present: atraumatic, normocephalic, normal inspection Eye exam: Present: normal appearance, PERRL, EOMI. Absent: scleral icterus, conjunctival injection, periorbital swelling ENT exam: Present: normal exam, mucous membranes moist Neck exam: Present: normal inspection, full ROM. Absent: tenderness, meningismus, lymphadenopathy Respiratory exam: Present: normal lung sounds bilaterally. Absent: respiratory distress, wheezes, rales, rhonchi, stridor Cardiovascular Exam: Present: bradycardia, normal heart sounds. Absent: systolic murmur, diastolic murmur, rubs, gallop, clicks GI/Abdominal exam: Present: soft, normal bowel sounds. Absent: distended, tenderness, guarding, rebound, rigid Extremities exam: Absent: pedal edema (No pitting edema) Neurological exam: Present: alert, oriented X3, normal gait, other (GCS 15) <Naldo Wilhelm P - Last Filed: 08/02/20 08:15> Course Vital Signs 08/02/20 08/02/20 08/02/20 06:34 07:34 07:35 Temperature 98.4 F Pulse Rate 50 L 60 45 L Respiratory 18 20 18 Rate Blood Pressure 177/98 151/74 O2 Sat by Pulse 100 98 98 Oximetry 08/02/20 08/02/20 07:37 08:00 Temperature Pulse Rate 76 Respiratory 18 Rate Blood Pressure 151/67 151/67 O2 Sat by Pulse 97 Oximetry EKG Findings - EKG Comments: EKG Findings:: Sinus bradycardia, ventricular rate 42, DE interval 152, QTC 392 <Naldo Wilhelm P - Last Filed: 08/02/20 08:15> Medical Decision Making - Lab Data Result diagrams: 08/02/20 07:20 08/02/20 07:20 <Naldo Wilhelm P - Last Filed: 08/02/20 08:15> - Lab Data Result diagrams: 08/02/20 07:20 08/02/20 07:20 <Kasey Moore P - Last Filed: 08/02/20 08:38> - Medical Decision Making Patient presents hypertensive with a blood pressure of 177/98. Heart rate of 50. Patient is post 5 days. Patient was given hydralazine for blood pressure management according to preeclampsia guidelines. Physical exam is generally unremarkable. She has no neurologic deficits. She does not have any distal evidence of heart failure. No pitting edema. CBC does show minimal leukocytosis. CMP is unremarkable. Liver enzymes are normal. Urinalysis is negative for protein. Chest x-ray shows no acute cardiopulmonary process. Concern for cardiomyopathy and preeclampsia. Dr moore spoke with Dr. Gaxiola, recommends 6 g of mag given preeclampsia. She accepts this admission. Patient will be taken to a telemetry floor given OB floor does not have telemetry. Given bradycardia down to 42 in the emergency room as well as chest pain patient was admitted for cardiology consultation secondary to concern for cardiomyopathy as well as preeclampsia. We do not have high clinical suspicion of PE at this time is patient does not have any shortness of breath and is bradycardic. Dr. Moore spoke with cardiology about this patient. (Naldo Wilhelm) Patient care was discussed with patient's OB Dr Gaxiola, based on patients HTN she requires treatment for pre-ecclampsia, recommends blood pressure management, given the patient's bradycardia she will be treated with hydralazine rather than labetalol. Dr Gaxiola recommends treatment with Magnesium Sulfate per preeclampsia protocol (6gm IV bolus, 2gm/hr for 24h) which was ordered and initiated in the ER. Recommends admission to telemetry floor with cardiac monitoring. Patient care was also discussed with Dr Melendrez, cardiology, who will evaluate the patient this morning. (Kasey Moore) - Lab Data Lab Results 08/02/20 08/02/20 08/02/20 Range/Units 07:20 07:20 07:20 WBC 10.8 H (3.8-10.6) k/uL RBC 3.80 (3.80-5.40) m/uL Hgb 11.3 L (11.4-16.0) gm/dL Hct 35.0 (34.0-46.0) % MCV 92.2 (80.0-100.0) fL MCH 29.8 (25.0-35.0) pg MCHC 32.4 (31.0-37.0) g/dL RDW 13.6 (11.5-15.5) % Plt Count 354 (150-450) k/uL Neutrophils % 84 % Lymphocytes % 13 % Monocytes % 2 % Eosinophils % 1 % Basophils % 0 % Neutrophils # 9.1 H (1.3-7.7) k/uL Lymphocytes # 1.4 (1.0-4.8) k/uL Monocytes # 0.2 (0-1.0) k/uL Eosinophils # 0.1 (0-0.7) k/uL Basophils # 0.0 (0-0.2) k/uL PT 9.8 (9.0-12.0) sec INR 0.9 (<1.2) APTT 24.7 (22.0-30.0) sec Sodium 139 (137-145) mmol/L Potassium 4.0 (3.5-5.1) mmol/L Chloride 111 H (98-107) mmol/L Carbon Dioxide 17 L (22-30) mmol/L Anion Gap 11 mmol/L BUN 11 (7-17) mg/dL Creatinine 0.66 (0.52-1.04) mg/dL Est GFR (CKD-EPI)AfAm >90 (>60 ml/min/1.73 sqM) Est GFR (CKD-EPI)NonAf >90 (>60 ml/min/1.73 sqM) Glucose 155 H (74-99) mg/dL Uric Acid 5.8 (3.7-7.4) mg/dL Calcium 9.6 (8.4-10.2) mg/dL Magnesium 1.9 (1.6-2.3) mg/dL Total Bilirubin 0.2 (0.2-1.3) mg/dL AST 22 (14-36) U/L ALT 24 (4-34) U/L Alkaline Phosphatase 107 (38-126) U/L Lactate Dehydrogenase 391 (313-618) U/L Troponin I (0.000-0.034) ng/mL NT-Pro-B Natriuret Pep pg/mL Total Protein 6.1 L (6.3-8.2) g/dL Albumin 3.6 (3.5-5.0) g/dL Urine Color Urine Appearance (Clear) Urine pH (5.0-8.0) Ur Specific [place] (1.001-1.035) Urine Protein (Negative) Urine Glucose (UA) (Negative) Urine Ketones (Negative) Urine Blood (Negative) Urine Nitrite (Negative) Urine Bilirubin (Negative) Urine Urobilinogen (<2.0) mg/dL Ur Leukocyte Esterase (Negative) Urine RBC (0-5) /hpf Urine WBC (0-5) /hpf Ur Squamous Epith Cells (0-4) /hpf Hyaline Casts (0-2) /lpf Urine Mucus (None) /hpf 08/02/20 08/02/20 08/02/20 Range/Units 07:20 07:20 07:20 WBC (3.8-10.6) k/uL RBC (3.80-5.40) m/uL Hgb (11.4-16.0) gm/dL Hct (34.0-46.0) % MCV (80.0-100.0) fL MCH (25.0-35.0) pg MCHC (31.0-37.0) g/dL RDW (11.5-15.5) % Plt Count (150-450) k/uL Neutrophils % % Lymphocytes % % Monocytes % % Eosinophils % % Basophils % % Neutrophils # (1.3-7.7) k/uL Lymphocytes # (1.0-4.8) k/uL Monocytes # (0-1.0) k/uL Eosinophils # (0-0.7) k/uL Basophils # (0-0.2) k/uL PT (9.0-12.0) sec INR (<1.2) APTT (22.0-30.0) sec Sodium (137-145) mmol/L Potassium (3.5-5.1) mmol/L Chloride (98-107) mmol/L Carbon Dioxide (22-30) mmol/L Anion Gap mmol/L BUN (7-17) mg/dL Creatinine (0.52-1.04) mg/dL Est GFR (CKD-EPI)AfAm (>60 ml/min/1.73 sqM) Est GFR (CKD-EPI)NonAf (>60 ml/min/1.73 sqM) Glucose (74-99) mg/dL Uric Acid (3.7-7.4) mg/dL Calcium (8.4-10.2) mg/dL Magnesium (1.6-2.3) mg/dL Total Bilirubin (0.2-1.3) mg/dL AST (14-36) U/L ALT (4-34) U/L Alkaline Phosphatase (38-126) U/L Lactate Dehydrogenase (313-618) U/L Troponin I <0.012 (0.000-0.034) ng/mL NT-Pro-B Natriuret Pep 682 pg/mL Total Protein (6.3-8.2) g/dL Albumin (3.5-5.0) g/dL Urine Color Light Yellow Urine Appearance Clear (Clear) Urine pH 6.5 (5.0-8.0) Ur Specific [place] 1.008 (1.001-1.035) Urine Protein Negative (Negative) Urine Glucose (UA) Negative (Negative) Urine Ketones Negative (Negative) Urine Blood Moderate H (Negative) Urine Nitrite Negative (Negative) Urine Bilirubin Negative (Negative) Urine Urobilinogen <2.0 (<2.0) mg/dL Ur Leukocyte Esterase Negative (Negative) Urine RBC 28 H (0-5) /hpf Urine WBC 2 (0-5) /hpf Ur Squamous Epith Cells 1 (0-4) /hpf Hyaline Casts 1 (0-2) /lpf Urine Mucus Rare H (None) /hpf Disposition Is patient prescribed a controlled substance at d/c from ED?: No Time of Disposition: 08:18 <Naldo Wilhelm P - Last Filed: 08/02/20 08:15> <Kasey Moore P - Last Filed: 08/02/20 08:38> Clinical Impression: Bradycardia, Pre-eclampsia, Disposition: ADMITTED IP TO THIS HOSP Condition: Fair
[2020-08-02] MEDS ORDERED: MAGNESIUM SULFATE GM 6 GM in SODIUM CHLORIDE 0.9% 100 ML IVPB ONE (07:22)
[2020-08-02 07:29] LABS: Basophils % (A) 0 %; Eosinophils # (A) 0.1 k/uL (0-0.7); Eosinophils % (A) 1 %; HGB 11.3 gm/dL (11.4-16.0); Lymphocytes # (A) 1.4 k/uL (1.0-4.8); Lymphocytes % (A) 13 %; MCH 29.8 pg (25.0-35.0); MCHC 32.4 g/dL (31.0-37.0); MCV 92.2 fL (80.0-100.0); Mean Platelet Volume 8.6; Monocytes # (A) 0.2 k/uL (0-1.0); Monocytes % (A) 2 %; Neutrophils # (A) 9.1 k/uL (1.3-7.7); Neutrophils % (A) 84 %; Platelet Count 354 k/uL (150-450); RDW 13.6 % (11.5-15.5); WBC 10.8 k/uL (3.8-10.6)
[2020-08-02] MEDS ORDERED: NALOXONE 0.4 MG/ML 1 ML VIAL IV PRN (07:32)
[2020-08-02 07:42] LABS: AST 22 U/L (14-36); African American GFR (CKD) >90 (>60 ml/min/1.73 sqM); Albumin 3.6 g/dL (3.5-5.0); Alkaline Phosphatase 107 U/L (38-126); Anion Gap 11 mmol/L; Blood Urea Nitrogen 11 mg/dL (7-17); Calcium 9.6 mg/dL (8.4-10.2); Carbon Dioxide 17 mmol/L (22-30); Chloride 111 mmol/L (98-107); Glucose 155 mg/dL (74-99); LDH 391 U/L (313-618); Magnesium 1.9 mg/dL (1.6-2.3); Non-African American GFR(CKD) >90 (>60 ml/min/1.73 sqM); Sodium 139 mmol/L (137-145); Total Bilirubin 0.2 mg/dL (0.2-1.3); Total Protein 6.1 g/dL (6.3-8.2); Uric Acid 5.8 mg/dL (3.7-7.4)
[2020-08-02 07:48] LABS: INR 0.9 (<1.2); Partial Thromboplastin Time 24.7 sec (22.0-30.0); Prothrombin Time 9.8 sec (9.0-12.0)
[2020-08-02 07:50] LABS: ALT 24 U/L (4-34)
--- NOTE | 2020-08-02 08:04 | XR ---
EXAMINATION TYPE: XR chest 2V DATE OF EXAM: 08/02/2020 COMPARISON: None HISTORY: 24-year-old female with chest pain TECHNIQUE: PA and lateral views FINDINGS: The cardiomediastinal silhouette, aorta, and pulmonary vasculature are within normal limits. Hazy low er lung densities related to overlying soft tissue. Otherwise, lungs and pleural spaces are clear. IMPRESSION: No acute cardiopulmonary process.
[2020-08-02 08:09] LABS: Appearance,Urine Clear (Clear); Bilirubin,Urine Negative (Negative); Blood,Urine Moderate (Negative); Color,Urine Light Yellow; Glucose,Urine (UA) Negative (Negative); Hyaline Casts,Urine 1 /lpf (0-2); Ketones,Urine Negative (Negative); Leukocyte Esterase,Urine Negative (Negative); Mucus,Urine Rare /hpf; Nitrite,Urine Negative (Negative); PH, Urine 6.5 (5.0-8.0); Protein,Urine Negative (Negative); RBC,Urine 28 /hpf (0-5); Specific Gravity,Urine 1.008 (1.001-1.035); Squamous Epithelial Cell,Urine 1 /hpf (0-4); Urobilinogen,Urine <2.0 mg/dL (<2.0); WBC,Urine 2 /hpf (0-5)
[2020-08-02] MEDS ORDERED: CALCIUM GLUCONATE 1 GM/10 ML VIAL IV PRN (09:57)
--- NOTE | 2020-08-02 10:44 | P.HPOB ---
History of Present Illness H&P Date: 08/02/20 Chief Complaint: Chest pain, visual changes, headaches This is a 24-year-old female 6 para 2 who delivered via section on 07/28/2020. This was a scheduled uncomplicated repeat section. She states that shortly after she got home she started having visual changes where she would see white for about 10 minutes at a time. She also complained of hea dache and some chest pain in her upper chest. She called the office yesterday and described these symptoms to my nurse. Advised her to go immediately to the emergency room. She apparently did come into the emergency room however I was not called. She left AGAINST MEDICAL ADVICE to go home and arrange for childcare and then returned this morning. Her blood pressures were again elevated this morning. All other labs and computed tomography scan were negative. She states currently her chest pain is gone since they gave her medication for blood pressure. She denies any heavy vaginal bleeding. She is breast-feeding and is pumping her breast milk. She is having normal bowel movements and urinating normally. OB history: . History of 2 deliveries at term. History of sever al miscarriages. Review of Systems Constitutional: Denies chills, Denies fever Eyes: bilateral photophobia (White vision for up to 10 minutes at a time.) Ears, nose, mouth and throat: Reports headache (Intermittently for the last few days), Denies sore throat Cardiovascular: Reports chest pain, Denies shortness of breath, Denies syncope Respiratory: Denies cough Gastrointestinal: Denies abdominal pain, Denies nausea, Denies vomiting Genitourinary: Denies pelvic pain, Denies Musculoskeletal: Denies myalgias Integumentary: Denies pruritus, Denies rash Neurological: Reports weakness, Denies numbness Psychiatric: Denies anxiety, Denies depression Past Medical History Past Medical History: No Reported History History of Any Multi-Drug Resistant Organisms: None Reported Past Surgical History: Section (x2) Additional Past Surgical History / Comment(s): D&C, Past Anesthesia/Blood Transfusion Reactions: No Reported Reaction Past Psychological History: No Psychological Hx Reported Smoking Status: Current every day smoker Past Alcohol Use History: None Reported Past Drug Use History: None Reported - Past Family History Mother Family Medical History: Diabetes Mellitus, Hypertension Medications and Allergies Home Medications Medication Instructions Recorded Confirmed Type Pnv,Calcium 72/Iron/Folic Acid 1 tab PO DAILY 04/30/18 08/02/20 History [ Plus Tablet] Fluticasone Nasal [place] [Flonase 1 - 2 spray EA NOSTRIL DAILY PRN 08/02/20 08/02/20 History Nasal [place]] Ibuprofen [Motrin] 600 mg PO Q6HR 08/02/20 08/02/20 History Loratadine [Claritin] 10 mg PO DAILY PRN 08/02/20 08/02/20 History Allergies Allergy/AdvReac Type Severity Reaction Status Date / Time Penicillins Allergy Unknown Anaphylaxis Verified 08/02/20 07:42 adhesive tape Allergy Rash/Hives Verified 08/02/20 07:42 aspirin Allergy Rash/Hives Verified 08/02/20 07:42 banana Allergy Anaphylaxis Verified 08/02/20 07:42 Gadolinium-Containing Allergy Chest Pain Verified 08/02/20 07:42 Contrast Medi iodine Allergy Anaphylaxis Verified 08/02/20 07:42 naproxen Allergy Rash/Hives Verified 08/02/20 07:42 wool Allergy Rash/Hives Verified 08/02/20 07:42 chlorine Allergy Rash/Hives Uncoded 08/02/20 06:38 chlorophyll Allergy Unknown Uncoded 08/02/20 07:42 dust AdvReac Wheezing Uncoded 08/02/20 07:42 pet dander AdvReac Wheezing Uncoded 08/02/20 07:42 Exam Osteopathic Statement: *. No significant issues noted on an osteopathic structural exam other than those noted in the History and Physical/Consult. Vital Signs Temp Pulse Pulse Resp BP BP Pulse Ox 08/02/20 09:15 63 16 126/58 98 08/02/20 08:00 76 18 151/67 97 08/02/20 07:37 151/67 08/02/20 07:35 45 L 18 98 08/02/20 07:34 60 20 151/74 98 08/02/20 06:34 98.4 F 50 L 18 177/98 100 Intake and Output 08/01/20 08/02/20 08/02/20 22:59 06:59 14:59 Intake Total 360 Balance 360 Intake: Oral 360 Other: Weight 75.75 kg Gen.: Well-developed well-nourished young female in no acute distress HEENT: Within normal limits Heart: Bradycardic rate with audible systolic murmur. Lungs: Clear to auscultation bilaterally Abdomen: Soft, nontender. Incision: Clean dry and intact Extremities: Negative Homans Results Result Diagrams: 08/02/20 07:20 08/02/20 07:20 Abnormal Lab Results - Last 24 Hours (Table) 08/02/20 08/02/20 08/02/20 Range/Units 07:20 07:20 07:20 WBC 10.8 H (3.8-10.6) k/uL Hgb 11.3 L (11.4-16.0) gm/dL Neutrophils # 9.1 H (1.3-7.7) k/uL Chloride 111 H (98-107) mmol/L Carbon Dioxide 17 L (22-30) mmol/L Glucose 155 H (74-99) mg/dL Total Protein 6.1 L (6.3-8.2) g/dL Urine Blood Moderate H (Negative) Urine RBC 28 H (0-5) /hpf Urine Mucus Rare H (None) /hpf Assessment and Plan (1) Bradycardia Current Visit: Yes Status: Acute Code(s): R00.1 - BRADYCARDIA, UNSPECIFIED SNOMED Code(s): 17440460 (2) Pre-eclampsia, Current Visit: Yes Status: Acute Code(s): O14.95 - UNSPECIFIED PRE- ECLAMPSIA, COMPLICATING THE PUERPERIUM SNOMED Code(s): 723673714 Plan: Admission for blood pressure management along with magnesium sulfate seizure prophylaxis. Cardiology is consulted for bradycardia and blood pressure management. Will need cardiac echo. Patient is advised of the need for magnesium sulfate for at least 24 hours. 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 I am off the rest of today. Dr. Del Rosario is covering today.
[2020-08-02] MEDS: MAGNESIUM SULFATE-WATER PMX 20 GM in WATER FOR INJECTION 1 500ML.BAG IV SCH (11:06)
[2020-08-02] MEDS ORDERED: methylPREDNISolone SOD SUCCI 125 MG/2 ML VIAL IV STA (12:47)
[2020-08-02] MEDS ORDERED: FAMOTIDINE 20 MG/2 ML VIAL IV STA (12:47)
[2020-08-02] MEDS ORDERED: diphenhydrAMINE 50 MG/ML 1 ML VIAL IVP STA (12:47)
--- NOTE | 2020-08-02 13:28 | P.CRDCN ---
History of Present Illness Consult date: 08/02/20 Reason for Consult (text): accelerated htn Chief complaint: Visual changes, headache History of present illness: This is a pleasant 24-year-old female who had a on July 28, uncomplicated. She was discharged home on Saturday and shortly after arriving home she started having vision changes, where she was experiencing dizziness and would see White for about 5-10 minute periods of time. She also is experiencing a headache and some sharp chest discomfort which would worsen when she would take a deep breath. She went to the emergency room and at that time was advised to be admitted, however patient had no childhood development teacher therefore she went home and again return to the emergency room this morning. Her blood pressure on arrival here was 177/98 with a heart rate in the 40s to 50s, temperature 90.8 0.400% on room air. The patient was given labetalol and hydralazine in the emergency room. EKG showed a sinus bradycardia with no acute changes. White blood cell count 10.8, hemoglobin 11.3, platelet count 354. Sodium 139, potassium 4.0, BUN 11, creatinine 0.6. Troponin 0.012. BNP 682. Patient had a CAT scan of the brain performed which did not show any acute changes. Chest x-ray did not reveal any acute cardiopulmonary process. At the time of my examination, patient's visual disturbance seemed to have resolved, still complaining of a mild headache, no chest discomfort. She just stated that she was very sad and wanting to be home with her baby. She also has a 1-year-old at home. Past Medical History Past Medical History: No Reported History History of Any Multi-Drug Resistant Organisms: None Reported Past Surgical History: Section (x2) Additional Past Surgical History / Comment(s): D&C, Past Anesthesia/Blood Transfusion Reactions: No Reported Reaction Past Psychological History: No Psychological Hx Reported Smoking Status: Current every day smoker Past Alcohol Use History: None Reported Past Drug Use History: None Reported - Past Family History Mother Family Medical History: Diabetes Mellitus, Hypertension Medications and Allergies Home Medications Medication Instructions Recorded Confirmed Type Pnv,Calcium 72/Iron/Folic Acid 1 tab PO DAILY 04/30/18 08/02/20 History [ Plus Tablet] Fluticasone Nasal [place] [Flonase 1 - 2 spray EA NOSTRIL DAILY PRN 08/02/20 08/02/20 History Nasal [place]] Ibuprofen [Motrin] 600 mg PO Q6HR 08/02/20 08/02/20 History Loratadine [Claritin] 10 mg PO DAILY PRN 08/02/20 08/02/20 History Allergies Allergy/AdvReac Type Severity Reaction Status Date / Time Penicillins Allergy Unknown Anaphylaxis Verified 08/02/20 07:42 adhesive tape Allergy Rash/Hives Verified 08/02/20 07:42 aspirin Allergy Rash/Hives Verified 08/02/20 07:42 banana Allergy Anaphylaxis Verified 08/02/20 07:42 Gadolinium-Containing Allergy Chest Pain Verified 08/02/20 07:42 Contrast Medi iodine Allergy Anaphylaxis Verified 08/02/20 07:42 naproxen Allergy Rash/Hives Verified 08/02/20 07:42 wool Allergy Rash/Hives Verified 08/02/20 07:42 chlorine Allergy Rash/Hives Uncoded 08/02/20 06:38 chlorophyll Allergy Unknown Uncoded 08/02/20 07:42 dust AdvReac Wheezing Uncoded 08/02/20 07:42 pet dander AdvReac Wheezing Uncoded 08/02/20 07:42 Physical Exam Vitals: Vital Signs Temp Pulse Pulse Resp BP BP Pulse Ox 08/02/20 09:15 63 16 126/58 98 08/02/20 08:00 76 18 151/67 97 08/02/20 07:37 151/67 08/02/20 07:35 45 L 18 98 08/02/20 07:34 60 20 151/74 98 08/02/20 06:34 98.4 F 50 L 18 177/98 100 Intake and Output 08/01/20 08/02/20 08/02/20 22:59 06:59 14:59 Intake Total 560 Balance 560 Intake: Oral 560 Other: Weight 75.75 kg 75.75 kg PHYSICAL EXAMINATION: GENERAL: When he 4-year-old female in no acute distress at the time of my examination HEENT: Head is atraumatic, normocephalic. Pupils equal, round. Sclera anicteric. Conjunctiva are clear. Mucous membranes of the mouth are moist. Neck is supple. There is no elevated jugular venous pressure. No carotid bruit is heard. HEART EXAMINATION: Heart S1 S2 1 systolic murmur is heard in the aortic area CHEST EXAMINATION: Lungs are clear to auscultation and precussion. No chest wall tenderness is noted on palpation or with deep breathing. ABDOMEN: Soft, nontender. Bowel sounds are heard. No organomegaly noted. EXTREMITIES: 2+ peripheral pulses with no evidence of peripheral edema and no calf tenderness noted. NEUROLOGIC patient is awake, alert and oriented 3 . . Results 08/02/20 07:20 08/02/20 07:20 Cardiac Enzymes 08/02/20 08/02/20 Range/Units 07:20 07:20 AST 22 (14-36) U/L Lactate Dehydrogenase 391 (313-618) U/L Troponin I <0.012 (0.000-0.034) ng/mL Coagulation 08/02/20 Range/Units 07:20 PT 9.8 (9.0-12.0) sec APTT 24.7 (22.0-30.0) sec CBC 08/02/20 Range/Units 07:20 WBC 10.8 H (3.8-10.6) k/uL RBC 3.80 (3.80-5.40) m/uL Hgb 11.3 L (11.4-16.0) gm/dL Hct 35.0 (34.0-46.0) % Plt Count 354 (150-450) k/uL Comprehensive Metabolic Panel 08/02/20 Range/Units 07:20 Sodium 139 (137-145) mmol/L Potassium 4.0 (3.5-5.1) mmol/L Chloride 111 H (98-107) mmol/L Carbon Dioxide 17 L (22-30) mmol/L BUN 11 (7-17) mg/dL Creatinine 0.66 (0.52-1.04) mg/dL Glucose 155 H (74-99) mg/dL Calcium 9.6 (8.4-10.2) mg/dL AST 22 (14-36) U/L ALT 24 (4-34) U/L Alkaline Phosphatase 107 (38-126) U/L Total Protein 6.1 L (6.3-8.2) g/dL Albumin 3.6 (3.5-5.0) g/dL Current Medications Generic Name Dose Route Start Last Admin Trade Name Freq PRN Reason Stop Dose Admin Calcium Gluconate 1 gm 08/02/20 09:57 Calcium Gluconate 1 Gm/10 Ml Vial IV 08/09/20 09:58 ONCE PRN Respiratory or Cardiac Arrest Magnesium Sulfate 20 gm/ IV 500 mls @ 50 mls/hr 08/02/20 08:00 08/02/20 11:06 Solution IV 2 gm/hr .Q10H ESTIVEN 50 mls/hr Administration 2 GM/HR Naloxone HCl 0.2 mg 08/02/20 07:32 Naloxone 0.4 Mg/Ml 1 Ml Vial IV Q2M PRN Opioid Reversal Intake and Output 08/01/20 08/02/20 08/02/20 22:59 06:59 14:59 Intake Total 560 Balance 560 Intake: Oral 560 Other: Weight 75.75 kg 75.75 kg Patient Weight 08/03/20 06:59 Weight 75.75 kg 08/02/20 07:20 08/02/20 07:20 EKG Interpretations (text) EKG shows a sinus bradycardia with no acute changes. Assessment and Plan Plan: Assessment and plan #1 accelerated hypertension #2 visual disturbance with associated headache #3 atypical chest discomfort, pleuritic in nature, and initial troponin negative. EKG shows a sinus bradycardia with no acute changes. #4 status post section 5 days ago Plan We have requested a stat echocardiogram with Doppler study be performed as well as a CT of the chest to rule out possibility of dissection. We will start the patient on Norvasc 5 mg daily for optimal blood pressure control, patient is currently nursing her baby. Obtain 2 subsequent troponins, patient's chest pain is very pleuritic and atypical in nature. Further recommendations to follow. DNP note has been reviewed, I agree with a documented findings and plan of care. Patient was seen and examined.
[2020-08-02] MEDS ORDERED: FAMOTIDINE 20 MG TAB PO STA (13:29)
--- NOTE | 2020-08-02 15:02 | CT ---
EXAMINATION TYPE: CT angio thor/abd pel aorta DATE OF EXAM: 08/02/2020 COMPARISON: CT abdomen pelvis 08/06/2019 HISTORY: Abdominal pain, rule out dissection CT DLP: 1463.3 mGycm. Automated Exposure Control for Dose Reduction was Utilized. CONTRAST: CT scan of the thorax, abdomen and pelvis is performed without IV contrast and with IV Contrast, татьяна ent injected with 100 mL of Isovue 370. Three-dimensional reconstructions performed on an alternate w orkstation. FINDINGS: LUNGS: The lungs are grossly clear, there is no concerning parenchymal mass or nodule identified. T here is no pleural effusion or pneumothorax seen. The tracheobronchial tree is patent. MEDIASTINUM: There are no greater than 1 cm hilar or mediastinal lymph nodes. No pericardial effusi on is seen. The aorta shows normal caliber. There is no abnormal luminal density present. There are 3 super aorti c branch vessels. Left and right common carotid, the innominate, left and right subclavian arteries, left and right vertebral arteries are patent centrally. The celiac axis, superior mesenteric artery, bilateral renal arteries, inferior mesenteric artery, common iliac, internal and external iliac and c ommon femoral arteries, proximal deep and superficial femoral arteries are patent. LIVER/GB: The liver is enlarged, there is no evident mass. Gallbladder is within normal limits. PANCREAS: No significant abnormality is seen. SPLEEN: No significant abnormality is seen. ADRENALS: No significant abnormality is seen. KIDNEYS: No significant abnormality is seen. Urinary bladder is urine distended. BOWEL: No significant abnormality is seen. GENITAL ORGANS: The uterus is enlarged and shows some heterogeneous density, some increased attenuati on present along the endometrium. Uterus measures 12 cm in transverse dimension by 8.1 cm in AP dimen conor by 16 cm in cephalad to caudal dimension. LYMPH NODES: No greater than 1cm abdominal or pelvic lymph nodes are appreciated. OSSEOUS STRUCTURES: No significant abnormality is seen. OTHER: Along the anterior abdominal wall, there is a combination of skin thickening, increased densit y within the subcutaneous tissues, focal lucency, defect with lucency along the rectus musculature co nsistent with patient's section. IMPRESSION: Correlate to exclude myometritis, endometritis. No evident aortic dissection. Hepatomegal y.
--- NOTE | 2020-08-02 17:29 | ECHOF ---
Referral Reason:assess lvf MEASUREMENTS -------- HEIGHT: 152.4 cm WEIGHT: 75.7 kg BP: IVSd: 1.0 cm (0.6 - 1.1) LVIDd: 5.4 cm (3.9 - 5.3) LVPWd: 1.2 cm (0.6 - 1.1) EDV(Teich): 142 ml IVSs: 1.3 cm LVIDs: 3.1 cm LVPWs: 1.8 cm %IVS Thck: 32 % ESV(Teich): 39 ml EF(Teich): 72 % %FS: 42 % SV(Teich): 103 ml LA Diam: 4.0 cm (2.7 - 3.8) RVIDd: 2.5 cm (< 3.3) LALs A4C: 4.6 cm LAAs A4C: 16.1 cm LAESV A-L A4C: 48 ml LAESV MOD A4C: 42 ml LALs A2C: 4.1 cm LAAs A2C: 15.9 cm LAESV A-L A2C: 52 ml LAESV MOD A2C: 47 ml LAESV(A-L): 53 ml LAESV Index (A-L): 30.43 ml/m Ao Diam: 2.8 cm (2.0 - 3.7) AV Cusp: 1.7 cm (1.5 - 2.6) EPSS: 0.5 cm MV E Shay: 1.14 m/s MV DecT: 120 ms MV Dec Daggett: 9.5 m/s MV A Shay: 0.70 m/s MV E/A Ratio: 1.62 MV PHT: 35 ms TR Vmax: 1.68 m/s TR maxP.30 mmHg RAP: 5.00 mmHg RVSP: 16.30 mmHg MV EF SLOPE: 124.53 mm/s (70 - 150) MV EXCURSION: 15.79 mm (> 18.000) FINDINGS -------- Sinus rhythm. This was a technically good study. LV size, wall thickness and systolic function are normal, with an EF greater than 55%. The left tuyet tricular size is normal. The right ventricle is normal in size. The left atrium is mildly dilated. LA is midly dilated 29-33ml/m2. The right atrial size is normal. The aortic valve is trileaflet, and appears structurally normal. No aortic stenosis or regurgitation. Mild mitral regurgitation is present. No Tricuspid regurgitation noted Right ventricular systolic pressure is normal at < 35 mmHg. There is no evidence of pulmonary hypertension. There is no pulmonic regurgitation present. The aortic root size is normal. There is no pericardial effusion. CONCLUSIONS -------- 1. Sinus rhythm. 2. LV size, wall thickness and systolic function are normal, with an EF greater than 55%. 3. The left ventricular size is normal. 4. The right ventricle is normal in size. 5. The left atrium is mildly dilated. 6. LA is midly dilated 29-33ml/m2. 7. The right atrial size is normal. 8. Mild mitral regurgitation is present. 9. No regurgitation noted 10. There is no evidence of pulmonary hypertension. 11. There is no pericardial effusion. PROOF TECHNICIAN HELPER: Luz Costello RDCS
[2020-08-02] MEDS: ACETAMINOPHEN TAB 325 MG TAB PO PRN (20:18)
[2020-08-03] MEDS: ACETAMINOPHEN TAB 325 MG TAB PO PRN ×2 (01:56→08:36)
[2020-08-03] MEDS: MAGNESIUM SULFATE-WATER PMX 20 GM in WATER FOR INJECTION 1 500ML.BAG IV SCH ×2 (07:01→07:06)
[2020-08-03 07:08] LABS: HCT 34.5 % (34.0-46.0); MCHC 31.7 g/dL (31.0-37.0); MCV 91.2 fL (80.0-100.0); Platelet Count 384 k/uL (150-450); RBC 3.78 m/uL (3.80-5.40); RDW 13.3 % (11.5-15.5); WBC 18.1 k/uL (3.8-10.6)
[2020-08-03 07:21] LABS: ALT 17 U/L (4-34); AST 26 U/L (14-36); African American GFR (CKD) >90 (>60 ml/min/1.73 sqM); Albumin 3.6 g/dL (3.5-5.0); Alkaline Phosphatase 98 U/L (38-126); Anion Gap 8 mmol/L; Blood Urea Nitrogen 12 mg/dL (7-17); Calcium 7.1 mg/dL (8.4-10.2); Carbon Dioxide 21 mmol/L (22-30); Chloride 109 mmol/L (98-107); Glucose 102 mg/dL (74-99); Non-African American GFR(CKD) >90 (>60 ml/min/1.73 sqM); Potassium 4.3 mmol/L (3.5-5.1); Sodium 138 mmol/L (137-145); Total Bilirubin 0.5 mg/dL (0.2-1.3); Total Protein 6.1 g/dL (6.3-8.2)
[2020-08-03 07:34] LABS: Magnesium 7.1 mg/dL (1.6-2.3)
[2020-08-03 07:53] VITALS: TEMP 97.6
[2020-08-03] MEDS ORDERED: amLODIPine 5 MG TAB PO SCH (09:00)
--- NOTE | 2020-08-03 09:05 | P.DS ---
Providers Date of admission: 08/02/20 07:32 Expected date of discharge: 08/03/20 Attending physician: Mireille Gaxiola Consults: 08/02/20 07:32 Consult Physician Urgent Consulting Provider: Shahid Melendrez Consult Reason/Comments: post preeclampsia with braadycardia Do you want consulting provider notified?: Yes Primary care physician: Mukul Pena - Discharge Diagnosis(es) (1) Bradycardia Current Visit: Yes Status: Acute (2) Pre-eclampsia, Current Visit: Yes Status: Acute Hospital Course: Today the patient is complaining of some weakness and still a headache. She is on magnesium and does feel somewhat weak with this. She states her chest pain and visual changes have all gone away. She denies any bleeding. She is pumping her breast milk. She is sad because she cannot be with her babies at this time. Vital signs show blood pressures in the 140s to 150s over 80s. Heart shows normal rate. Lungs are clear to auscultation bilaterally. Abdomen is soft with positive bowel sounds 4. Incision is clean dry and intact and Steri-Strips are removed. There is a small amount of ecchymosis above the incision in the midline. Extremities show negative Homans. Impression is status post repeat c esarean section postoperative day #6, preeclampsia area plan is to discontinue the magnesium sulfate today. Will monitor blood pressures today and as long as blood pressures stay stable after discontinuing magnesium, will discharge home later today. We will follow up with the patient in 1 week in the office for a postoperative check and blood pressure check. She will also follow up with cardiology. We'll defer medications to cardiology for home medication. Patient Condition at Discharge: Fair Plan - Discharge Summary New Discharge Prescriptions: New amLODIPine [Norvasc] 5 mg PO DAILY #30 tab Acetaminophen Tab [Tylenol] 650 mg PO Q6HR PRN tab PRN Reason: Fever And/ Or Pain Continue Pnv,Calcium 72/Iron/Folic Acid [ Plus Tablet] 1 tab PO DAILY Loratadine [Claritin] 10 mg PO DAILY PRN PRN Reason: Allergy Symptoms Fluticasone Nasal [place] [Flonase Nasal [place]] 1 - 2 spray EA NOSTRIL DAILY PRN PRN Reason: Congestion Ibuprofen [Motrin] 600 mg PO Q6HR Discharge Medication List Pnv,Calcium 72/Iron/Folic Acid [ Plus Tablet] 1 tab PO DAILY 04/30/18 [History] Fluticasone Nasal [place] [Flonase Nasal [place]] 1 - 2 spray EA NOSTRIL DAILY PRN 08/02/20 [History] Ibuprofen [Motrin] 600 mg PO Q6HR 08/02/20 [History] Loratadine [Claritin] 10 mg PO DAILY PRN 08/02/20 [History] Acetaminophen Tab [Tylenol] 650 mg PO Q6HR PRN tab 08/03/20 [Rx] amLODIPine [Norvasc] 5 mg PO DAILY #30 tab 08/03/20 [Rx] Follow up Appointment(s)/Referral(s): Mukul Pena DO [Primary Care Provider] - 1-2 days Mireille Gaxiola DO [Family Provider] - 1 Week Activity/Diet/Wound Care/Special Instructions: Activity as tolerated. Diet as tolerated. May shower, but no tub baths for 1 week. Call the office if any severe headache, blurry vision, chest pain, or any other concerns. Discharge Disposition: HOME SELF-CARE
--- NOTE | 2020-08-03 09:43 | P.PN ---
Subjective Progress Note Date: 08/03/20 This is a pleasant 24-year-old female who had a on July 28, . She was discharged home on Saturday and shortly after arriving home she started having vision changes, where she was experiencing dizziness and would see White for about 5-10 minute periods of time. She also is experiencing a headache and some sharp chest discomfort which would worsen when she would take a deep breath. She went to the emergency room and at that time was advised to be admitted, however patient had no children's counselor therefore she went home and again return to the emergency room this morning. Her blood pressure on arrival here was 177/98 with a heart rate in the 40s to 50s, temperature 90.8 0.400% on room air. The patient was given labetalol and hydralazine in the emergency room. EKG showed a sinus bradycardia with no acute changes. White blood cell count 10.8, hemoglobin 11.3, platelet count 354. Sodium 139, potassium 4.0, BUN 11, creatinine 0.6. Troponin 0.012. BNP 682. Patient had a CAT scan of the brain performed which did not show any acute changes. Chest x-ray did not reveal any acute cardiopulmonary process. At the time of my examination, patient's visual disturbance seemed to have resolved, still complaining of a mild headache, no chest discomfort. She just stated that she was very sad and wanting to be home with her baby. She also has a 1-year-old at home. 08/03/2020 Patient was seen and examined this morning, overall doing well. Denies any headache, no visual disturbance. No chest discomfort. Echocardiogram with Doppler study was performed which revealed an ejection fraction of greater than 55%. No valvular abnormalities, no pericardial effusion. CT angios was performed, no evidence of aortic dissection. Blood pressure this morning 150/80 with a heart rate in the 70s, 100% on room air. White blood cell count 18.1, hemoglobin 11, platelet count 384. Sodium 138, potassium 4.3, BUN 12, creatinine 0.7. Magnesium level after 7.1. Objective - Vital Signs Vital signs: Vital Signs Temp 97.6 F 08/03/20 07:45 Pulse 78 08/03/20 07:45 Resp 20 08/03/20 07:45 BP 151/88 08/03/20 07:45 Pulse Ox 100 08/03/20 07:45 Intake & Output 08/02/20 08/03/20 08/03/20 18:59 06:59 18:59 Intake Total 1160 500 Output Total 1100 Balance 1160 -600 Weight 75.75 kg 75.3 kg Intake: Intake, IV Titration 500 Amount Magnesium Sulfate-Water 500 Pmx 20 gm In Water For Injection 1 500ml.bag @ 2 GM/HR 50 mls/hr IV .Q10H ESTIVEN Rx#:[id number] Oral 1160 Output: Urine 1100 Other: Voiding Method Toilet # Voids 4 - Exam PHYSICAL EXAMINATION: GENERAL: When he 4-year-old female in no acute distress at the time of my examination HEENT: Head is atraumatic, normocephalic. Pupils equal, round. Sclera anicteric. Conjunctiva are clear. Mucous membranes of the mouth are moist. Neck is supple. There is no elevated jugular venous pressure. No carotid bruit is heard. HEART EXAMINATION: Heart S1 S2 1 systolic murmur is heard in the aortic area CHEST EXAMINATION: Lungs are clear to auscultation and precussion. No chest wall tenderness is noted on palpation or with deep breathing. ABDOMEN: Soft, nontender. Bowel sounds are heard. No organomegaly noted. EXTREMITIES: 2+ peripheral pulses with no evidence of peripheral edema and no calf tenderness noted. NEUROLOGIC patient is awake, alert and oriented 3 . . - Labs CBC & Chem 7: 08/03/20 06:48 08/03/20 06:48 Labs: Abnormal Lab Results - Last 24 Hours (Table) 08/02/20 08/03/20 08/03/20 Range/Units 17:15 06:48 06:48 WBC 18.1 H (3.8-10.6) k/uL RBC 3.78 L (3.80-5.40) m/uL Hgb 11.0 L (11.4-16.0) gm/dL Chloride 109 H (98-107) mmol/L Carbon Dioxide 21 L (22-30) mmol/L Glucose 102 H (74-99) mg/dL Calcium 7.1 L (8.4-10.2) mg/dL Magnesium 5.2 H* 7.1 H* (1.6-2.3) mg/dL Total Protein 6.1 L (6.3-8.2) g/dL Assessment and Plan Plan: Assessment and plan #1 accelerated hypertension #2 visual disturbance with associated headache #3 atypical chest discomfort, pleuritic in nature, and initial troponin negative. EKG shows a sinus bradycardia with no acute changes. #4 status post section 5 days ago Plan Echocardiogram with Doppler study revealed a normal left ventricular systolic function, no evidence of aortic dissection on CTA. Patient was initiated on 5 mg of Norvasc yesterday which we will continue at. Plans are for the patient to be discharged home today. We will make her a follow-up appointment in the office post discharge. DNP note has been reviewed, I agree with a documented findings and plan of care. Patient was seen and examined.
[2020-08-03 10:52] VITALS: RESP 16
[2020-08-03 12:32] VITALS: BP 142/86; PULSE 98
== END 2020-08-03 12:33 | disposition home or self-care (01) | DRG 776 ==
LOC: EC 06:33 → 3SCARD 07:32
PROVIDERS: ADMIT Obstetrics & Gynecology; ATTEND Obstetrics & Gynecology
DX: O14.95 Unspecified pre-eclampsia, complicating the puerperium (principal); O99.335 Smoking (tobacco) complicating the puerperium; F17.200 Nicotine dependence, unspecified, uncomplicated; O99.89 Other specified diseases and conditions complicating pregnancy, childbirth and the puerperium; R00.1 Bradycardia, unspecified; O90.89 Other complications of the puerperium, not elsewhere classified; R01.1 Cardiac murmur, unspecified; Z88.6 Allergy status to analgesic agent; Z91.041 Radiographic dye allergy status; Z88.0 Allergy status to penicillin; Z91.048 Other nonmedicinal substance allergy status; Z82.49 Family history of ischemic heart disease and other diseases of the circulatory system; Z83.3 Family history of diabetes mellitus
CPT/HCPCS: 36410; 36415; 71046; 71275; 74174; 76937; 80053; 81001; 83615; 83735; 83880; 84484; 84550; 85025; 85027; 85610; 85730; 93005; 93306; 96374; 99285

== ENCOUNTER 2021-02-06 20:02 | Emergency (ER) | payer OTHER ==
[2021-02-06 20:14] VITALS: BP 129/71; PULSE 76; RESP 18; TEMP 98.5
[2021-02-06] MEDS ORDERED: KETOROLAC 15 MG/ML 1 ML VIAL IVP STA (20:42)
[2021-02-06] MEDS ORDERED: ONDANSETRON 4 MG/2 ML VIAL IVP STA (20:43)
[2021-02-06] MEDS ORDERED: diphenhydrAMINE 50 MG/ML 1 ML VIAL IVP STA (20:43)
--- NOTE | 2021-02-06 20:59 | ED ---
General Adult HPI - General Chief complaint: Headache Stated complaint: Head pain,toe pain,sore throat Time Seen by Provider: 02/06/21 20:27 Source: patient Mode of arrival: ambulatory Limitations: no limitations - History of Present Illness Initial comments: Patient is a 25-year-old female presenting to the emergency department for 2 separate complaints. Patient states over the past 2 weeks that she is experiencing headaches that have been intermittent. She states that approximately one month ago she had a "mini stroke and small brain bleed where she was evaluated in [place]." She was started on blood pressure medication and was told to follow up with neurology however she has not had a follow-up since. She denies any numbness and tingling in her extremities, no extremity weakness. She states the headache has been in frontal, she has been taking Tylenol at home without improvement. She denies any blurry vision. Patient is also complaining of pain in her right big toe. She states just prior to arrival she actually dropped a futon on her toe and is having lots of pain. She denies any previous injuries or surgeries. She denies any fever or chills, no chest pain or shortness of breath, some mild nausea no vomiting. She has no further complaints at this time. She denies being . Upon arrival to the ER, her vital signs are stable. - Related Data Home Medications Medication Instructions Recorded Confirmed Pnv,Calcium 72/Iron/Folic Acid 1 tab PO DAILY 04/30/18 08/02/20 [ Plus Tablet] Fluticasone Nasal [place] [Flonase 1 - 2 spray EA NOSTRIL DAILY PRN 08/02/20 08/02/20 Nasal [place]] Ibuprofen [Motrin] 600 mg PO Q6HR 08/02/20 08/02/20 Loratadine [Claritin] 10 mg PO DAILY PRN 08/02/20 08/02/20 Previous Rx's Medication Instructions Recorded Acetaminophen Tab [Tylenol] 650 mg PO Q6HR PRN tab 08/03/20 amLODIPine [Norvasc] 5 mg PO DAILY #30 tab 08/03/20 Ketorolac [Toradol] 10 mg PO Q8HR PRN #8 tab 02/06/21 Allergies Allergy/AdvReac Type Severity Reaction Status Date / Time Penicillins Allergy Unknown Anaphylaxis Verified 02/06/21 20:14 adhesive tape Allergy Rash/Hives Verified 02/06/21 20:14 aspirin Allergy Rash/Hives Verified 02/06/21 20:14 banana Allergy Anaphylaxis Verified 02/06/21 20:14 Gadolinium-Containing Allergy Chest Pain Verified 02/06/21 20:14 Contrast Medi iodine Allergy Anaphylaxis Verified 02/06/21 20:14 naproxen Allergy Rash/Hives Verified 02/06/21 20:14 wool Allergy Rash/Hives Verified 02/06/21 20:14 chlorine Allergy Rash/Hives Uncoded 02/06/21 20:14 chlorophyll Allergy Unknown Uncoded 02/06/21 20:14 dust AdvReac Wheezing Uncoded 02/06/21 20:14 pet dander AdvReac Wheezing Uncoded 02/06/21 20:14 Review of Systems ROS Statement: Those systems with pertinent positive or pertinent negative responses have been documented in the HPI. ROS Other: All systems not noted in ROS Statement are negative. Past Medical History Past Medical History: CVA/TIA History of Any Multi-Drug Resistant Organisms: None Reported Past Surgical History: Section Additional Past Surgical History / Comment(s): D&C, Past Anesthesia/Blood Transfusion Reactions: No Reported Reaction Past Psychological History: No Psychological Hx Reported Smoking Status: Current every day smoker Past Alcohol Use History: None Reported Past Drug Use History: None Reported - Past Family History Mother Family Medical History: Diabetes Mellitus, Hypertension General Exam - General Exam Comments Initial Comments: GENERAL: Patient is well-developed and well-nourished. Patient is nontoxic and in no acute distress. HEAD: Atraumatic, normocephalic. EYES: Pupils equal round and reactive to light, extraocular movements intact, sclera anicteric, conjunctiva are normal. Eyelids were unremarkable. ENT: TMs normal, nares patent, oropharynx clear without exudates. Moist mucous membranes. NECK: Normal range of motion, supple without lymphadenopathy or JVD. LUNGS: Unlabored respirations. Breath sounds clear to auscultation bilaterally and equal. No wheezes rales or rhonchi. HEART: Regular rate and rhythm without murmurs, rubs or gallops. ABDOMEN: Soft, nontender, normoactive bowel sounds. No guarding, no rebound. No masses appreciated. : Deferred MUSCULOSKELETAL: Pain with palpation of the right first big toe, mild swelling, no obvious deformity. Normal extremities with adequate strength and normal range of motion, no pitting or edema. No clubbing or cyanosis. NEUROLOGICAL: Patient is alert and oriented x 3. Motor and sensory are also intact. Cranial nerves II through XII grossly intact. Symmetrical smile. Normal speech, normal gait. PSYCH: Normal mood, normal affect. SKIN: Warm, Dry, normal turgor, no rashes or lesions noted. Limitations: no limitations Course Vital Signs 02/06/21 20:10 Temperature 98.5 F Pulse Rate 76 Respiratory 18 Rate Blood Pressure 129/71 O2 Sat by Pulse 100 Oximetry Medical Decision Making - Medical Decision Making Patient is a 25-year-old female here with 2 separate complaints of a headache as well as management for 2 weeks as well as pain of her right big toe after she actually dropped a futon on it this evening. Patient does have history of brain bleed that was diagnosed and treated in [place] one month ago, per patient. She has no deficits from this. Her exam is completely normal today, no acute neuro deficits. I did do a CT of her brain which shows no acute process, no acute hemorrhage. X-rays of the right foot also revealed no acute fractures dislocations. Patient was given some Toradol, Benadryl and Zofran for her symptoms, and reexamination, her headache is completely gone. She states she feels well and wishes to go home. I did urge patient to follow up with her neurologist. She may also do ice for her contusion of the toe. She is in agreement with this plan of care. She is stable for discharge. Strict return parameters were discussed with the patient she verbalized understanding. Case discussed with Dr. Wheatley. Disposition Clinical Impression: Headache, Contusion of right great toe without damage to nail Disposition: HOME SELF-CARE Condition: Stable Instructions (If sedation given, give patient instructions): Acute Headache (ED) Additional Instructions: Please return to the Emergency Department if symptoms worsen or any other concerns. Continue to increase fluid intake. May use ice to the toe for pain and swelling. Please follow-up with your neurologist as discussed. Prescriptions: Ketorolac [Toradol] 10 mg PO Q8HR PRN #8 tab PRN Reason: Pain Is patient prescribed a controlled substance at d/c from ED?: No Referrals: Mukul Pena DO [Primary Care Provider] - 1-2 days Decision Time: 22:06
--- NOTE | 2021-02-06 21:02 | XR ---
RESULT: HISTORY: big toe pain, dropped futon on it TECHNIQUE: 2 views of the right foot were obtained. COMPARISON: None. FINDINGS: There is no acute fracture or dislocation. The visualized joint spaces are preserved. No radiopaque f oreign body. IMPRESSION: No acute osseous abnormality.
--- NOTE | 2021-02-06 21:10 | CT ---
EXAMINATION TYPE: CT brain wo con DATE OF EXAM: 02/06/2021 COMPARISON: 08/01/2020. HISTORY: Headache x2 weeks, history of bleed. CT DLP: 1086.4 mGycm. Automated Exposure Control for Dose Reduction was Utilized. TECHNIQUE: CT scan of the head is performed without contrast. FINDINGS: There is no acute intracranial hemorrhage, mass effect, or midline shift identified. The ventricles and sulci are within normal limits in size. The globes are intact and the visualized sin uses are clear. IMPRESSION: No acute intracranial hemorrhage, mass effect, or midline shift is seen.
== END 2021-02-06 22:16 | disposition home or self-care (01) ==
LOC: EC 20:02
DX: S90.111A Contusion of right great toe without damage to nail, initial encounter (principal); R51.9 Headache, unspecified; F17.200 Nicotine dependence, unspecified, uncomplicated; Z79.1 Long term (current) use of non-steroidal anti-inflammatories (NSAID); Z88.0 Allergy status to penicillin; Z86.73 Personal history of transient ischemic attack (TIA), and cerebral infarction without residual deficits; W20.8XXA Other cause of strike by thrown, projected or falling object, initial encounter
CPT/HCPCS: 73620; 70450; 99284; 96374; 96375 ×2; J1200; J2405; J1885

== ENCOUNTER 2021-02-09 04:29 | Emergency (ER) | payer OTHER ==
[2021-02-09 04:36] VITALS: BP 124/83; PULSE 52; RESP 18; TEMP 98.5
--- NOTE | 2021-02-09 06:28 | ED ---
ENT HPI - General Chief complaint: Dental/Oral Stated complaint: Dental Pain Time Seen by Provider: 02/09/21 06:15 Source: patient, RN notes reviewed Mode of arrival: ambulatory Limitations: no limitations - History of Present Illness Initial comments: 25-year-old female presents emergency department she went dental pain. Patient states that she has right lower dental pain. Patient states her tooth is cracked. Patient has been trying to get into the [facility]. Patient states pain has gotten worse. Patient denies any fevers chills. Patient states that she has been taken Tylenol with minimal relief. Ears or chills - Related Data Home Medications Medication Instructions Recorded Confirmed Acetaminophen Tab [Tylenol] 1,000 mg PO DAILY PRN 02/06/21 02/06/21 Metoprolol Succinate (ER) [Toprol 25 mg PO DAILY 02/06/21 02/06/21 XL] PARoxetine [Paxil] 20 mg PO DAILY 02/06/21 02/06/21 Previous Rx's Medication Instructions Recorded Ketorolac [Toradol] 10 mg PO Q8HR PRN #8 tab 02/06/21 Clindamycin HCl 300 mg PO Q6HR #40 cap 02/09/21 Ibuprofen [Motrin] 600 mg PO Q8HR PRN #30 tab 02/09/21 Allergies Allergy/AdvReac Type Severity Reaction Status Date / Time Penicillins Allergy Unknown Anaphylaxis Verified 02/09/21 04:37 adhesive tape Allergy Rash/Hives Verified 02/09/21 04:37 aspirin Allergy Rash/Hives Verified 02/09/21 04:37 banana Allergy Anaphylaxis Verified 02/09/21 04:37 Gadolinium-Containing Allergy Chest Pain Verified 02/09/21 04:37 Contrast Medi iodine Allergy Anaphylaxis Verified 02/09/21 04:37 naproxen Allergy Rash/Hives Verified 02/09/21 04:37 wool Allergy Rash/Hives Verified 02/09/21 04:37 chlorine Allergy Rash/Hives Uncoded 02/09/21 04:37 chlorophyll Allergy Unknown Uncoded 02/09/21 04:37 dust AdvReac Wheezing Uncoded 02/09/21 04:37 pet dander AdvReac Wheezing Uncoded 02/09/21 04:37 Review of Systems ROS Statement: Those systems with pertinent positive or pertinent negative responses have been documented in the HPI. ROS Other: All systems not noted in ROS Statement are negative. Past Medical History Past Medical History: CVA/TIA, Hypertension History of Any Multi-Drug Resistant Organisms: None Reported Past Surgical History: Section Additional Past Surgical History / Comment(s): D&C, Past Anesthesia/Blood Transfusion Reactions: No Reported Reaction Past Psychological History: Anxiety, Depression Smoking Status: Current every day smoker Past Alcohol Use History: None Reported Past Drug Use History: None Reported - Past Family History Mother Family Medical History: Diabetes Mellitus, Hypertension General Exam Limitations: no limitations General appearance: alert, in no apparent distress Head exam: Present: atraumatic, normocephalic, normal inspection Eye exam: Present: normal appearance, PERRL, EOMI. Absent: scleral icterus, conjunctival injection, periorbital swelling ENT exam: Present: mucous membranes moist, TM's normal bilaterally, normal external ear exam. Absent: normal oropharynx (Dental fracture #32 normal drainable abscess.) Neck exam: Present: normal inspection, full ROM. Absent: tenderness, meningismus, lymphadenopathy Respiratory exam: Present: normal lung sounds bilaterally. Absent: respiratory distress, wheezes, rales, rhonchi, stridor Cardiovascular Exam: Present: regular rate, normal rhythm, normal heart sounds. Absent: systolic murmur, diastolic murmur, rubs, gallop, clicks Course Vital Signs 02/09/21 04:33 Temperature 98.5 F Pulse Rate 52 L Respiratory 18 Rate Blood Pressure 124/83 O2 Sat by Pulse 97 Oximetry Medical Decision Making - Medical Decision Making Patient has a dental fracture with no drainable abscess patient will be started on for prophylactic antibiotic the form of clindamycin. Patient has ALLERGY penicillin she'll follow-up with dental clinic return for any worsening change in symptoms. Disposition Clinical Impression: Fracture of tooth, Toothache Disposition: HOME SELF-CARE Condition: Stable Instructions (If sedation given, give patient instructions): Toothache (ED) Additional Instructions: Please follow up with the [facility] dental clinic. [email or web address] [email or web address] [address]. Phone number for new patients or [phone] for existing patients. Please return to the Emergency Department if symptoms worsen or any other concerns. Prescriptions: Clindamycin HCl 300 mg PO Q6HR #40 cap Ibuprofen [Motrin] 600 mg PO Q8HR PRN #30 tab PRN Reason: Pain Is patient prescribed a controlled substance at d/c from ED?: No Referrals: Mukul Pena DO [Primary Care Provider] - 1-2 days Time of Disposition: 06:28
== END 2021-02-09 06:35 | disposition home or self-care (01) ==
LOC: EC 04:29
DX: K03.81 Cracked tooth (principal); I10 Essential (primary) hypertension; I63.9 Cerebral infarction, unspecified; F17.200 Nicotine dependence, unspecified, uncomplicated
CPT/HCPCS: 99282

== ENCOUNTER 2021-09-15 20:56 | Emergency (ER) | payer OTHER ==
[2021-09-15] MEDS ORDERED: ACETAMINOPHEN TAB 500 MG TAB PO STA (22:29)
[2021-09-15] MEDS ORDERED: SODIUM CHLORIDE 0.9% 1,000 ML IV STA (22:29)
[2021-09-15] MEDS ORDERED: IBUPROFEN 400 MG TAB PO STA (22:32)
[2021-09-16] MEDS ORDERED: CASIRIVIMAB (REGN10933) (EUA) 600 MG, IMDEVIMAB (REGN10987) (EUA) 600 MG in SODIUM CHLO... IVPB ONE ×3
[2021-09-16] MEDS ORDERED: SODIUM CHLORIDE 0.9% 50 ML IVPB ONE
--- NOTE | 2021-09-16 00:06 | ED ---
URI HPI - General Chief Complaint: Upper Respiratory Infection Stated Complaint: Headache,body aches Time Seen by Provider: 09/15/21 22:05 Source: patient, RN notes reviewed Mode of arrival: ambulatory Limitations: no limitations - History of Present Illness Initial Comments: Patient is a 26-year-old female presenting to the emergency Department with co mplaints of cough, body aches, headache as well as fatigue over the past 2 days. She's been having some nausea as well. She denies history of asthma, she does smoke cigarettes. She has been having fevers and chills as well. She did not take any Tylenol or Motrin yet today. She denies any chest pains, some mild shortness of breath. She denies being this time. She has no further complaints. Upon arrival to the ER, her temperature is 101.2, pulse is 105, 95% on room air. - Related Data Home Medications Medication Instructions Recorded Confirmed Acetaminophen Tab [Tylenol] 1,000 mg PO DAILY PRN 02/06/21 02/06/21 Metoprolol Succinate (ER) [Toprol 25 mg PO DAILY 02/06/21 02/06/21 XL] PARoxetine [Paxil] 20 mg PO DAILY 02/06/21 02/06/21 Previous Rx's Medication Instructions Recorded Ketorolac [Toradol] 10 mg PO Q8HR PRN #8 tab 02/06/21 Clindamycin HCl 300 mg PO Q6HR #40 cap 02/09/21 Ibuprofen [Motrin] 600 mg PO Q8HR PRN #30 tab 02/09/21 Allergies Allergy/AdvReac Type Severity Reaction Status Date / Time Penicillins Allergy Unknown Anaphylaxis Verified 09/15/21 21:30 adhesive tape Allergy Rash/Hives Verified 09/15/21 21:30 aspirin Allergy Rash/Hives Verified 09/15/21 21:30 banana Allergy Anaphylaxis Verified 09/15/21 21:30 Gadolinium-Containing Allergy Chest Pain Verified 09/15/21 21:30 Contrast Medi iodine Allergy Anaphylaxis Verified 09/15/21 21:30 naproxen Allergy Rash/Hives Verified 09/15/21 21:30 wool Allergy Rash/Hives Verified 09/15/21 21:30 chlorine Allergy Rash/Hives Uncoded 09/15/21 21:30 chlorophyll Allergy Unknown Uncoded 09/15/21 21:30 dust AdvReac Wheezing Uncoded 09/15/21 21:30 pet dander AdvReac Wheezing Uncoded 09/15/21 21:30 Review of Systems ROS Statement: Those systems with pertinent positive or pertinent negative responses have been documented in the HPI. ROS Other: All systems not noted in ROS Statement are negative. Past Medical History Past Medical History: CVA/TIA, Hypertension History of Any Multi-Drug Resistant Organisms: None Reported Past Surgical History: Section Additional Past Surgical History / Comment(s): D&C, Past Anesthesia/Blood Transfusion Reactions: No Reported Reaction Past Psychological History: Anxiety, Depression Smoking Status: Current every day smoker Past Alcohol Use History: None Reported Past Drug Use History: None Reported - Past Family History Mother Family Medical History: Diabetes Mellitus, Hypertension General Exam - General Exam Comments Initial Comments: GENERAL: Patient is well-developed and well-nourished. Patient is nontoxic and in no acute distress. HEAD: Atraumatic, normocephalic. EYES: Pupils equal round and reactive to light, extraocular movements intact, sclera anicteric, conjunctiva are normal. Eyelids were unremarkable. ENT: Nares patent, oropharynx clear without exudates. Moist mucous membranes. NECK: Normal range of motion, supple without lymphadenopathy or JVD. LUNGS: Unlabored respirations. Breath sounds clear to auscultation bilaterally and equal. No wheezes rales or rhonchi. HEART: Regular rate and rhythm without murmurs, rubs or gallops. ABDOMEN: Soft, nontender, normoactive bowel sounds. No guarding, no rebound. No masses appreciated. MUSCULOSKELETAL: Normal extremities with adequate strength and normal range of motion, no pitting or edema. No clubbing or cyanosis. NEUROLOGICAL: Patient is alert and oriented x 3. SKIN: Warm, Dry, normal turgor, no rashes or lesions noted. Limitations: no limitations Course Vital Signs 09/15/21 21:26 Temperature 101.2 F H Pulse Rate 105 H Respiratory 20 Rate Blood Pressure 131/82 O2 Sat by Pulse 95 Oximetry Medical Decision Making - Medical Decision Making Patient is a 26-year-old female here with viral type symptoms over the past 2 days. She did arrive febrile, slightly tachycardia. Rapid Covid is positive. She has May qualifications for monoclonal antibodies, she does agree to this. Patient was given fluids, Tylenol and Motrin as well. She does report improvement in her symptoms. I recommended continuing alternating between Tylenol and ibuprofen for any discomfort. Increase her fluids. Return parameters were discussed with her and she verbalized understanding. - Lab Data Lab Results 09/15/21 Range/Units 21:32 Coronavirus (PCR) Detected A (Not Detectd) Disposition Clinical Impression: COVID-19 Disposition: HOME SELF-CARE Condition: Stable Instructions (If sedation given, give patient instructions): Coronavirus Disease 2019 (COVID-19) Additional Instructions: Please return to the Emergency Department if symptoms worsen or any other concerns. Recommend alternating between Tylenol and ibuprofen for fever and body ache control. Increase your fluid intake. Follow-up with your primary care physician. Is patient prescribed a controlled substance at d/c from ED?: No Referrals: Mukul Pena DO [Primary Care Provider] - 1-2 days
[2021-09-16] MEDS ORDERED: ONDANSETRON 4 MG/2 ML VIAL IVP STA (01:19)
[2021-09-16 02:40] VITALS: BP 127/71; PULSE 87; RESP 18; TEMP 98.3
== END 2021-09-16 02:25 | disposition home or self-care (01) ==
LOC: EC 20:56
DX: U07.1 COVID-19 (principal); F17.200 Nicotine dependence, unspecified, uncomplicated; I10 Essential (primary) hypertension; Z79.899 Other long term (current) drug therapy; Z88.0 Allergy status to penicillin; Z88.8 Allergy status to other drugs, medicaments and biological substances; Z91.09 Other allergy status, other than to drugs and biological substances; Z88.6 Allergy status to analgesic agent; Z91.018 Allergy to other foods; Z91.041 Radiographic dye allergy status
CPT/HCPCS: 99283 ×2; 96365; 96375 ×2; 96361 ×2; 87635; M0243; J2405; Q0243

== ENCOUNTER 2022-11-13 21:19 | Emergency (ER) | payer OTHER ==
[2022-11-13 21:41] VITALS: BP 107/61; PULSE 102; RESP 16; TEMP 99.7
--- NOTE | 2022-11-14 01:06 | XR ---
EXAMINATION TYPE: XR chest 2V DATE OF EXAM: 11/14/2022 COMPARISON: 07/14/2022 HISTORY: Chest pain TECHNIQUE: FINDINGS: Heart and mediastinum are normal. Lungs are clear. Diaphragm is normal. Bony thorax appears normal. IMPRESSION: Normal chest. No change.
[2022-11-14] MEDS ORDERED: ONDANSETRON 4 MG ODT STARTER PACK 2 TAB BTL PO STA (01:22)
[2022-11-14] MEDS ORDERED: ACETAMINOPHEN TAB 500 MG TAB PO STA (01:22)
[2022-11-14] MEDS ORDERED: ONDANSETRON ODT 4 MG TAB PO STA (01:22)
--- NOTE | 2022-11-14 01:24 | ED ---
General Adult HPI - General Chief complaint: Fever Stated complaint: COVID test, sob Time Seen by Provider: 11/13/22 23:54 Source: patient Mode of arrival: ambulatory - History of Present Illness Initial comments: Patient is a 27-year-old female presenting with chief complaint of fever. Patient states that over the last 3 days she has been experiencing fever as well as body aches, cough, congestion, nausea, vomiting. Patient states that this feels similar to when she had previously had Covid. She is also complaining of left-sided abdominal pain. Patient states that the pain comes in waves. It is a sharp intense pain. No hematemesis, hematochezia, melena, dysuria, hematuria, flank pain. No chest pain, wheezing, difficulty breathing, palpitations, w eakness. - Related Data Home Medications Medication Instructions Recorded Confirmed Acetaminophen Tab [Tylenol] 1,000 mg PO DAILY PRN 02/06/21 02/06/21 Metoprolol Succinate (ER) [Toprol 25 mg PO DAILY 02/06/21 02/06/21 XL] PARoxetine [Paxil] 20 mg PO DAILY 02/06/21 02/06/21 Previous Rx's Medication Instructions Recorded Ketorolac [Toradol] 10 mg PO Q8HR PRN #8 tab 02/06/21 Ibuprofen [Motrin] 600 mg PO Q8HR PRN #30 tab 02/09/21 clindamycin HCL [Clindamycin HCl] 300 mg PO Q6HR #40 cap 02/09/21 Cephalexin [Keflex] 500 mg PO Q6HR #28 cap 02/01/22 Sulfamethox-Tmp 800-160Mg [Bactrim 1 tab PO Q12HR #14 tab 02/01/22 DS 800-160 mg] Allergies Allergy/AdvReac Type Severity Reaction Status Date / Time Penicillins Allergy Unknown Anaphylaxis Verified 11/13/22 21:41 adhesive tape Allergy Rash/Hives Verified 11/13/22 21:41 aspirin Allergy Rash/Hives Verified 11/13/22 21:41 banana Allergy Anaphylaxis Verified 11/13/22 21:41 Gadolinium-Containing Allergy Chest Pain Verified 11/13/22 21:41 Contrast Medi iodine Allergy Anaphylaxis Verified 11/13/22 21:41 naproxen Allergy Rash/Hives Verified 11/13/22 21:41 wool Allergy Rash/Hives Verified 11/13/22 21:41 chlorine Allergy Rash/Hives Uncoded 07/13/22 23:28 chlorophyll Allergy Unknown Uncoded 07/13/22 23:28 dust AdvReac Wheezing Uncoded 07/13/22 23:28 pet dander AdvReac Wheezing Uncoded 07/13/22 23:28 Review of Systems ROS Statement: Those systems with pertinent positive or pertinent negative responses have been documented in the HPI. ROS Other: All systems not noted in ROS Statement are negative. Past Medical History Past Medical History: CVA/TIA History of Any Multi-Drug Resistant Organisms: None Reported Past Surgical History: Section Additional Past Surgical History / Comment(s): D&C, Past Anesthesia/Blood Transfusion Reactions: No Reported Reaction Past Psychological History: ADD/ADHD, Anxiety, Depression Smoking Status: Current every day smoker Past Alcohol Use History: None Reported Past Drug Use History: None Reported - Past Family History Mother Family Medical History: Diabetes Mellitus, Hypertension General Exam Limitations: no limitations General appearance: alert, in no apparent distress Head exam: Present: atraumatic, normocephalic, normal inspection Eye exam: Present: normal appearance Neck exam: Present: normal inspection, full ROM Respiratory exam: Present: normal lung sounds bilaterally. Absent: respiratory distress, wheezes, rales, rhonchi, stridor Cardiovascular Exam: Present: regular rate, normal rhythm, normal heart sounds. Absent: systolic murmur, diastolic murmur, rubs, gallop, clicks GI/Abdominal exam: Present: soft, tenderness. Absent: distended, guarding, rebound, rigid Neurological exam: Present: alert, oriented X3, CN II-XII intact Psychiatric exam: Present: normal affect, normal mood Skin exam: Present: warm, dry, intact, normal color. Absent: rash Course Vital Signs 11/13/22 21:39 Temperature 99.7 F H Pulse Rate 102 H Respiratory 16 Rate Blood Pressure 107/61 O2 Sat by Pulse 97 Oximetry Medical Decision Making - Medical Decision Making Patient is a 27-year-old female presenting with chief complaint of fever. Patient has had fever, cough, congestion, nausea, vomiting, diarrhea. She is also complaining of some abdominal pain. On physical examination heart and lungs are clear to auscultation, patient is febrile. Patient tested positive for influenza a chest x-ray shows no acute process. Patient is educated on these findings. She is given Tylenol and Zofran. Patient is educated on supportive treatment for influenza and alternating Motrin and Tylenol as needed. Lab work is been ordered for further evaluation of patient's abdominal pain. Patient left before lab work could be obtained. Follow-up with PCP. Report back to ER with any new or worsening symptoms. I discussed this case in detail with my attending Dr. Stallworth - Lab Data Lab Results 11/13/22 Range/Units 21:47 Influenza Type A (PCR) Detected A (Not Detectd) Influenza Type B (PCR) Not Detected (Not Detectd) RSV (PCR) Not Detected (Not Detectd) SARS-CoV-2 (PCR) Not Detected (Not Detectd) Disposition Clinical Impression: Influenza Disposition: Left Against Medical Advice Condition: Fair Referrals: Mukul Pena DO [Primary Care Provider] - 1-2 days Time of Disposition: 02:20
== END 2022-11-14 02:13 | disposition left against medical advice (07) ==
LOC: EC 21:19
DX: J10.1 Influenza due to other identified influenza virus with other respiratory manifestations (principal); F41.9 Anxiety disorder, unspecified; F32.A Depression, unspecified; F17.200 Nicotine dependence, unspecified, uncomplicated; Z88.0 Allergy status to penicillin; Z88.8 Allergy status to other drugs, medicaments and biological substances; Z88.6 Allergy status to analgesic agent; Z91.048 Other nonmedicinal substance allergy status; Z91.018 Allergy to other foods; Z20.822 Contact with and (suspected) exposure to COVID-19; Z53.29 Procedure and treatment not carried out because of patient's decision for other reasons
CPT/HCPCS: 87636; 71046; 99283; S0119

== ENCOUNTER 2023-03-18 01:46 | Emergency (ER) | payer OTHER, BC ==
[2023-03-18 02:41] LABS: Basophils # (A) 0.1 k/uL (0-0.2); Basophils % (A) 0 %; Eosinophils # (A) 0.4 k/uL (0-0.7); Eosinophils % (A) 3 %; HCT 43.7 % (34.0-46.0); HGB 14.7 gm/dL (11.4-16.0); Lymphocytes # (A) 4.7 k/uL (1.0-4.8); Lymphocytes % (A) 37 %; MCH 31.3 pg (25.0-35.0); MCHC 33.5 g/dL (31.0-37.0); MCV 93.4 fL (80.0-100.0); Monocytes # (A) 0.6 k/uL (0-1.0); Monocytes % (A) 5 %; Neutrophils # (A) 6.8 k/uL (1.3-7.7); Neutrophils % (A) 54 %; Platelet Count 262 k/uL (150-450); RBC 4.68 m/uL (3.80-5.40); RDW 12.8 % (11.5-15.5); WBC 12.7 k/uL (3.8-10.6)
[2023-03-18 03:13] LABS: ALT 22 U/L (4-34); AST 23 U/L (14-36); African American GFR (CKD) >90 (>60 ml/min/1.73 sqM); Albumin 4.6 g/dL (3.5-5.0); Alkaline Phosphatase 86 U/L (38-126); Amylase 91 U/L (30-110); Anion Gap 13 mmol/L; Blood Urea Nitrogen 11 mg/dL (7-17); Calcium 9.5 mg/dL (8.4-10.2); Carbon Dioxide 19 mmol/L (22-30); Chloride 107 mmol/L (98-107); Glucose 102 mg/dL (74-99); Lipase 140 U/L (23-300); Non-African American GFR(CKD) >90 (>60 ml/min/1.73 sqM); Potassium 4.2 mmol/L (3.5-5.1); Sodium 139 mmol/L (137-145); Total Bilirubin 0.2 mg/dL (0.2-1.3)
[2023-03-18 03:36] LABS: Appearance,Urine Clear (Clear); Bilirubin,Urine Negative (Negative); Blood,Urine Negative (Negative); Color,Urine Light Yellow; Glucose,Urine (UA) Negative (Negative); Ketones,Urine Negative (Negative); Leukocyte Esterase,Urine Negative (Negative); Nitrite,Urine Negative (Negative); PH, Urine 6.5 (5.0-8.0); Protein,Urine Negative (Negative); Specific Gravity,Urine 1.012 (1.001-1.035); Urobilinogen,Urine <2.0 mg/dL (<2.0)
[2023-03-18] MEDS ORDERED: FAMOTIDINE 20 MG/2 ML VIAL IV STA (03:40)
[2023-03-18] MEDS ORDERED: diphenhydrAMINE 50 MG/ML 1 ML VIAL IVP STA (03:40)
[2023-03-18] MEDS ORDERED: methylPREDNISolone SOD SUCCI 125 MG/2 ML VIAL IV STA (03:40)
--- NOTE | 2023-03-18 05:32 | CT ---
EXAMINATION TYPE: CT abdomen pelvis w con DATE OF EXAM: 03/18/2023 HISTORY: abd pain and nausea. CT DLP: 895.8mGycm Automated Exposure Control for Dose Reduction was Utilized. CONTRAST: CT scan of the abdomen and pelvis is performed without oral and with IV Contrast, patient injected wi th 100 mL of Isovue 300. COMPARISON: Most recent CT August 02, 2020 FINDINGS: LUNG BASES: Dependent atelectasis. LIVER/GB: Gallbladder has distended margins without surrounding fluid or fat stranding. Liver size u pper limits of normal to mildly enlarged unchanged from prior. No biliary dilatation. PANCREAS: No significant abnormality is seen. SPLEEN: No significant abnormality is seen. ADRENALS: No significant abnormality is seen. KIDNEYS: No significant abnormality is seen. BOWEL: Slightly suboptimal evaluation without enteric contrast. No suspicious small or large bowel di latation is seen. Slightly Low-lying cecum into right pelvis. Normal-appearing appendix coronal image 37 extending medially. UTERUS/ADNEXA: Anteverted uterus. Slightly larger left ovary with ring-enhancing 1.9 cm lesion axial image 74 suspicious for corpus luteal cyst LYMPH NODES: No greater than 1cm abdominal or pelvic lymph nodes are appreciated. OSSEOUS STRUCTURES: No significant abnormality is seen. OTHER: No significant additional abnormality is seen. IMPRESSION: No CT evidence for acute appendicitis. No bowel obstruction. No significant acute finding is seen to account for patient's clinical symptoms of unspecified abdominal pain with nausea.
--- NOTE | 2023-03-18 06:11 | ED ---
Abdominal Pain HPI - General Chief Complaint: Abdominal Pain Stated Complaint: appendicitus Time Seen by Provider: 03/18/23 03:31 Source: patient Mode of arrival: ambulatory - History of Present Illness Initial Comments: 27-year-old female presents emergency Department with request to be evaluated for appendicitis. States that throughout the day today the patient began having right-sided flank right lower quadrant abdominal pain. She has never had abdominal surgery. Denies dysuria, hematuria or difficulty voiding. Denies diarrhea, constipation, black or bloody stools. No abnormal vaginal bleeding or discharge. No concern for . She admits to anorexia. No fevers. Not take anything for pain. 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 - Related Data Home Medications Medication Instructions Recorded Confirmed Acetaminophen Tab [Tylenol] 1,000 mg PO DAILY PRN 02/06/21 02/06/21 Metoprolol Succinate (ER) [Toprol 25 mg PO DAILY 02/06/21 02/06/21 XL] PARoxetine [Paxil] 20 mg PO DAILY 02/06/21 02/06/21 Previous Rx's Medication Instructions Recorded Ketorolac [Toradol] 10 mg PO Q8HR PRN #8 tab 02/06/21 Ibuprofen [Motrin] 600 mg PO Q8HR PRN #30 tab 02/09/21 clindamycin HCL [Clindamycin HCl] 300 mg PO Q6HR #40 cap 02/09/21 Cephalexin [Keflex] 500 mg PO Q6HR #28 cap 02/01/22 Sulfamethox-Tmp 800-160Mg [Bactrim 1 tab PO Q12HR #14 tab 02/01/22 DS 800-160 mg] Allergies Allergy/AdvReac Type Severity Reaction Status Date / Time Penicillins Allergy Unknown Anaphylaxis Verified 03/30/23 03:58 adhesive tape Allergy Rash/Hives Verified 03/30/23 03:58 aspirin Allergy Rash/Hives Verified 03/30/23 03:58 banana Allergy Anaphylaxis Verified 03/30/23 03:58 Gadolinium-Containing Allergy Chest Pain Verified 03/30/23 03:58 Contrast Medi iodine Allergy Anaphylaxis Verified 03/30/23 03:58 morphine Allergy Itching Verified 03/30/23 03:58 naproxen Allergy Rash/Hives Verified 03/30/23 03:58 wool Allergy Rash/Hives Verified 03/30/23 03:58 chlorine Allergy Rash/Hives Uncoded 03/30/23 03:58 chlorophyll Allergy Unknown Uncoded 03/30/23 03:58 dust AdvReac Wheezing Uncoded 03/30/23 03:58 pet dander AdvReac Wheezing Uncoded 03/30/23 03:58 Review of Systems ROS Statement: Those systems with pertinent positive or pertinent negative responses have been documented in the HPI. ROS Other: All systems not noted in ROS Statement are negative. Past Medical History Past Medical History: CVA/TIA History of Any Multi-Drug Resistant Organisms: None Reported Past Surgical History: Section Additional Past Surgical History / Comment(s): D&C Past Anesthesia/Blood Transfusion Reactions: No Reported Reaction Past Psychological History: ADD/ADHD, Anxiety, Depression Smoking Status: Current every day smoker Past Alcohol Use History: None Reported Past Drug Use History: None Reported - Past Family History Mother Family Medical History: Diabetes Mellitus, Hypertension General Exam General appearance: alert, in no apparent distress Head exam: Present: atraumatic, normocephalic, normal inspection Eye exam: Present: normal appearance, PERRL, EOMI. Absent: scleral icterus, conjunctival injection, periorbital swelling ENT exam: Present: normal exam, mucous membranes moist Neck exam: Present: normal inspection. Absent: tenderness, meningismus, lymphadenopathy Respiratory exam: Present: normal lung sounds bilaterally. Absent: respiratory distress, wheezes, rales, rhonchi, stridor Cardiovascular Exam: Present: regular rate, normal rhythm, normal heart sounds. Absent: systolic murmur, diastolic murmur, rubs, gallop, clicks GI/Abdominal exam: Present: soft, tenderness (right lower quadrant), normal bow el sounds. Absent: distended, guarding, rebound, rigid Extremities exam: Present: normal inspection, full ROM, normal capillary refill. Absent: tenderness, pedal edema, joint swelling, calf tenderness Back exam: Present: normal inspection Neurological exam: Present: alert, oriented X3, CN II-XII intact Psychiatric exam: Present: normal affect, normal mood Skin exam: Present: warm, dry, intact, normal color. Absent: rash Course Vital Signs 03/18/23 03/18/23 01:49 06:17 Temperature 98.1 F 98.5 F Pulse Rate 91 65 Respiratory 19 18 Rate Blood Pressure 130/86 113/63 O2 Sat by Pulse 98 97 Oximetry Medical Decision Making - Medical Decision Making Was pt. sent in by a medical professional or institution (HUEY Schuler, RESIDENTIAL CONSTRUCTION INSTRUCTOR, urgent care, hospital, or fci...) When possible be specific @ -nno Did you speak to anyone other than the patient for history (EMS, parent, family, police, friend...)? What history was obtained from this source @ -no Did you review nursing and triage notes (agree or disagree)? Why? @ -I reviewed and agree with nursing and triage notes Were old charts reviewed (outside hosp., previous admission, EMS record, old EKG, old radiological studies, urgent care reports/EKG's, fci records)? Report findings @ -no old charts were reviewed Differential Diagnosis (chest pain, altered mental status, abdominal pain women, abdominal pain men, vaginal bleeding, weakness, fever, dyspnea, syncope, headache, dizziness, GI bleed, back pain, seizure, CVA, palpatations, mental health, musculoskeletal)? @ -appendicitis, colitis, mesenteric adenitis, ovarian cyst, ovarian torsion EKG interpreted by me (3pts min.). @ -No X-rays interpreted by me (1pt min.). @ -no CT interpreted by me (1pt min.). @ -yes U/S interpreted by me (1pt. min.). @ -None done What testing was considered but not performed or refused? (CT, X-rays, U/S, labs)? Why? @ -None What meds were considered but not given or refused? Why? @ -None Did you discuss the management of the patient with other professionals (professionals i.e. HUEY Schuler, RESIDENTIAL CONSTRUCTION INSTRUCTOR, lab, RT, psych nurse, administrator social welfare, community mental health social worker, teacher, special police officer, human services case manager)? Give summary @ -No Was smoking cessation discussed for >3mins.? @ -No Was critical care preformed (if so, how long)? @ -No Were there social determinants of health that impacted care today? How? (Homelessness, low income, unemployed, alcoholism, drug addiction, transp ortation, low edu. Level, literacy, decrease access to med. care, fpc, rehab)? @ -No Was there de-escalation of care discussed even if they declined (Discuss DNR or withdrawal of care, Hospice)? DNR status @ -no What co-morbidities impacted this encounter? (DM, HTN, Smoking, COPD, CAD, Cancer, CVA, ARF, Chemo, Hep., AIDS, mental health diagnosis, sleep apnea, morbid obesity)? @ -none Was patient admitted / discharged? Hospital course, mention meds given and route, prescriptions, significant lab abnormalities, going to OR and other pertinent info. @ -Upon removal patient was placed into room 3. A thorough history and physical exam was performed. IV access established laboratory studies were conducted. Patient does go for CT which fails to demonstrate signs of appendicitis. Results are discussed the patient. She is stable for discharge home at this time. Instructed to alternate taking Motrin at home for pain. Return for any new or worsening symptoms. Patient was agreeable to this. She was discharged home in stable condition Undiagnosed new problem with uncertain prognosis? @ -yes Drug Therapy requiring intensive monitoring for toxicity (Heparin, Nitro, Insulin, Cardizem)? @ -No Were any procedures done? @ -none Diagnosis/symptom? @ acute rlq pain Acute, or Chronic, or Acute on Chronic? @ -acute Uncomplicated (without systemic symptoms) or Complicated (systemic symptoms)? @ -complicated Side effects of treatment? @ -No Exacerbation, Progression, or Severe Exacerbation? @ -No Poses a threat to life or bodily function? How? (Chest pain, USA, SD, pneumonia, PE, COPD, DKA, ARF, appy, cholecystitis, CVA, Diverticulitis, Homicidal, Suicidal, threat to staff... and all critical care pts) @ -No - Lab Data Result diagrams: 03/18/23 02:22 03/18/23 02:22 Lab Results 03/18/23 03/18/23 03/18/23 Range/Units 02:22 02:22 02:23 WBC 12.7 H (3.8-10.6) k/uL RBC 4.68 (3.80-5.40) m/uL Hgb 14.7 (11.4-16.0) gm/dL Hct 43.7 (34.0-46.0) % MCV 93.4 (80.0-100.0) fL MCH 31.3 (25.0-35.0) pg MCHC 33.5 (31.0-37.0) g/dL RDW 12.8 (11.5-15.5) % Plt Count 262 (150-450) k/uL MPV 9.0 Neutrophils % 54 % Lymphocytes % 37 % Monocytes % 5 % Eosinophils % 3 % Basophils % 0 % Neutrophils # 6.8 (1.3-7.7) k/uL Lymphocytes # 4.7 (1.0-4.8) k/uL Monocytes # 0.6 (0-1.0) k/uL Eosinophils # 0.4 (0-0.7) k/uL Basophils # 0.1 (0-0.2) k/uL Sodium 139 (137-145) mmol/L Potassium 4.2 (3.5-5.1) mmol/L Chloride 107 (98-107) mmol/L Carbon Dioxide 19 L (22-30) mmol/L Anion Gap 13 mmol/L BUN 11 (7-17) mg/dL Creatinine 0.63 (0.52-1.04) mg/dL Est GFR (CKD-EPI)AfAm >90 (>60 ml/min/1.73 sqM) Est GFR (CKD-EPI)NonAf >90 (>60 ml/min/1.73 sqM) Glucose 102 H (74-99) mg/dL Calcium 9.5 (8.4-10.2) mg/dL Total Bilirubin 0.2 (0.2-1.3) mg/dL AST 23 (14-36) U/L ALT 22 (4-34) U/L Alkaline Phosphatase 86 (38-126) U/L Total Protein 7.0 (6.3-8.2) g/dL Albumin 4.6 (3.5-5.0) g/dL Amylase 91 (30-110) U/L Lipase 140 (23-300) U/L Urine Color Light Yellow Urine Appearance Clear (Clear) Urine pH 6.5 (5.0-8.0) Ur Specific Rocky 1.012 (1.001-1.035) Urine Protein Negative (Negative) Urine Glucose (UA) Negative (Negative) Urine Ketones Negative (Negative) Urine Blood Negative (Negative) Urine Nitrite Negative (Negative) Urine Bilirubin Negative (Negative) Urine Urobilinogen <2.0 (<2.0) mg/dL Ur Leukocyte Esterase Negative (Negative) Urine HCG, Qual (Not Detectd) 03/18/23 Range/Units 02:23 WBC (3.8-10.6) k/uL RBC (3.80-5.40) m/uL Hgb (11.4-16.0) gm/dL Hct (34.0-46.0) % MCV (80.0-100.0) fL MCH (25.0-35.0) pg MCHC (31.0-37.0) g/dL RDW (11.5-15.5) % Plt Count (150-450) k/uL MPV Neutrophils % % Lymphocytes % % Monocytes % % Eosinophils % % Basophils % % Neutrophils # (1.3-7.7) k/uL Lymphocytes # (1.0-4.8) k/uL Monocytes # (0-1.0) k/uL Eosinophils # (0-0.7) k/uL Basophils # (0-0.2) k/uL Sodium (137-145) mmol/L Potassium (3.5-5.1) mmol/L Chloride (98-107) mmol/L Carbon Dioxide (22-30) mmol/L Anion Gap mmol/L BUN (7-17) mg/dL Creatinine (0.52-1.04) mg/dL Est GFR (CKD-EPI)AfAm (>60 ml/min/1.73 sqM) Est GFR (CKD-EPI)NonAf (>60 ml/min/1.73 sqM) Glucose (74-99) mg/dL Calcium (8.4-10.2) mg/dL Total Bilirubin (0.2-1.3) mg/dL AST (14-36) U/L ALT (4-34) U/L Alkaline Phosphatase (38-126) U/L Total Protein (6.3-8.2) g/dL Albumin (3.5-5.0) g/dL Amylase (30-110) U/L Lipase (23-300) U/L Urine Color Urine Appearance (Clear) Urine pH (5.0-8.0) Ur Specific Rocky (1.001-1.035) Urine Protein (Negative) Urine Glucose (UA) (Negative) Urine Ketones (Negative) Urine Blood (Negative) Urine Nitrite (Negative) Urine Bilirubin (Negative) Urine Urobilinogen (<2.0) mg/dL Ur Leukocyte Esterase (Negative) Urine HCG, Qual Not Detected (Not Detectd) Disposition Clinical Impression: Abdominal pain Disposition: HOME SELF-CARE Condition: Stable Instructions (If sedation given, give patient instructions): Abdominal Pain (ED) Additional Instructions: Please alternate taking Motrin and Tylenol for pain control. Follow-up with your doctor and return for any new or worsening symptoms Is patient prescribed a controlled substance at d/c from ED?: No Referrals: Mukul Pena DO [Primary Care Provider] - 1-2 days Time of Disposition: 06:11
[2023-03-18 06:18] VITALS: BP 113/63; PULSE 65; RESP 18; TEMP 98.5
== END 2023-03-18 06:22 | disposition home or self-care (01) ==
LOC: EC 01:46
DX: R10.31 Right lower quadrant pain (principal); Z86.73 Personal history of transient ischemic attack (TIA), and cerebral infarction without residual deficits; F41.9 Anxiety disorder, unspecified; F32.A Depression, unspecified; F17.200 Nicotine dependence, unspecified, uncomplicated; Z88.0 Allergy status to penicillin; Z88.8 Allergy status to other drugs, medicaments and biological substances; Z91.018 Allergy to other foods; Z91.048 Other nonmedicinal substance allergy status; Z79.899 Other long term (current) drug therapy
CPT/HCPCS: 36415; 80053; 82150; 83690; 85025; 81003; 81025; 74177; 99284; 96374; 96375 ×2; J1200; J2930; Q9967

== ENCOUNTER 2023-03-30 03:49 | Emergency (ER) | payer OTHER, BC ==
[2023-03-30 03:58] VITALS: TEMP 98.1
--- NOTE | 2023-03-30 04:23 | ED ---
General Adult HPI - General Chief complaint: ENT Stated complaint: SOMETHING IN EAR Time Seen by Provider: 03/30/23 04:12 Source: patient, RN notes reviewed, old records reviewed Mode of arrival: ambulatory - History of Present Illness Initial comments: Patient is a 27-year-old female who presents emergency department over concern for a bug or spider in her ear. Patient states she awoke this evening and coughed and suddenly she felt a strange sensation in her right ear. It was a plugged sort of sensation on that she felt something moving. Presents emergency department for evaluation. No other acute complaints. Does have a history of ALLERGIES. Denies any rhinorrhea, sinus tenderness, sore throat, upper respiratory symptoms. Presents here for further evaluation at this time. Denies any fevers or chills. - Related Data Home Medications Medication Instructions Recorded Confirmed Acetaminophen Tab [Tylenol] 1,000 mg PO DAILY PRN 02/06/21 02/06/21 Metoprolol Succinate (ER) [Toprol 25 mg PO DAILY 02/06/21 02/06/21 XL] PARoxetine [Paxil] 20 mg PO DAILY 02/06/21 02/06/21 Previous Rx's Medication Instructions Recorded Ketorolac [Toradol] 10 mg PO Q8HR PRN #8 tab 02/06/21 Ibuprofen [Motrin] 600 mg PO Q8HR PRN #30 tab 02/09/21 clindamycin HCL [Clindamycin HCl] 300 mg PO Q6HR #40 cap 02/09/21 Cephalexin [Keflex] 500 mg PO Q6HR #28 cap 02/01/22 Sulfamethox-Tmp 800-160Mg [Bactrim 1 tab PO Q12HR #14 tab 02/01/22 DS 800-160 mg] Allergies Allergy/AdvReac Type Severity Reaction Status Date / Time Penicillins Allergy Unknown Anaphylaxis Verified 03/30/23 03:58 adhesive tape Allergy Rash/Hives Verified 03/30/23 03:58 aspirin Allergy Rash/Hives Verified 03/30/23 03:58 banana Allergy Anaphylaxis Verified 03/30/23 03:58 Gadolinium-Containing Allergy Chest Pain Verified 03/30/23 03:58 Contrast Medi iodine Allergy Anaphylaxis Verified 03/30/23 03:58 morphine Allergy Itching Verified 03/30/23 03:58 naproxen Allergy Rash/Hives Verified 03/30/23 03:58 wool Allergy Rash/Hives Verified 03/30/23 03:58 chlorine Allergy Rash/Hives Uncoded 03/30/23 03:58 chlorophyll Allergy Unknown Uncoded 03/30/23 03:58 dust AdvReac Wheezing Uncoded 03/30/23 03:58 pet dander AdvReac Wheezing Uncoded 03/30/23 03:58 Review of Systems ROS Statement: Those systems with pertinent positive or pertinent negative responses have been documented in the HPI. Review of Systems: CONST: Denies fever EYES: Denies blurry vision ENT: Denies nasal congestion C/V: Denies Chest pain RESP: Denies shortness of breath GI: Denies abdominal pain : Denies dysuria SKIN: Denies rash. MSK: Denies joint pain. NEURO: Denies headache ROS Other: All systems not noted in ROS Statement are negative. Past Medical History Past Medical History: CVA/TIA History of Any Multi-Drug Resistant Organisms: None Reported Past Surgical History: Section Additional Past Surgical History / Comment(s): D&C Past Anesthesia/Blood Transfusion Reactions: No Reported Reaction Past Psychological History: ADD/ADHD, Anxiety, Depression Smoking Status: Current every day smoker Past Alcohol Use History: None Reported Past Drug Use History: None Reported - Past Family History Mother Family Medical History: Diabetes Mellitus, Hypertension General Exam - General Exam Comments Initial Comments: General: Appears in no acute distress. HEAD: Normal with no signs of head trauma. EYES: EOMI. ENT: Hearing grossly intact. Bilateral tympanic membranes within normal limits. Posterior oropharynx within normal limits. Mild fluid behind the right tympanic membrane with no obvious evidence of infection. No evidence of foreign body. No tenderness of the external ear on either side. RESPIRATORY: No respiratory distress. C/V: Regular rate and rhythm. ABD: Abdomen is nondistended. EXT: No obvious deformity. SKIN: No rashes or lesions observed on exposed skin. NEURO: Alert and oriented.. Course Vital Signs 03/30/23 03:56 Temperature 98.1 F Pulse Rate 71 Respiratory 17 Rate Blood Pressure 139/77 O2 Sat by Pulse 100 Oximetry Medical Decision Making - Medical Decision Making Was pt. sent in by a medical professional or institution (, PA, SHIPPING PROCESSOR, urgent care, hospital, or [facility]...) When possible be specific @ -No Did you speak to anyone other than the patient for history (EMS, parent, family, police, friend...)? What history was obtained from this source @ -No Did you review nursing and triage notes (agree or disagree)? Why? @ -I reviewed and agree with nursing and triage notes Were old charts reviewed (outside hosp., previous admission, EMS record, old EKG, old radiological studies, urgent care reports/EKG's, [facility] records)? Report findings @ -No old charts were reviewed Differential Diagnosis (chest pain, altered mental status, abdominal pain women, abdominal pain men, vaginal bleeding, weakness, fever, dyspnea, syncope, headache, dizziness, GI bleed, back pain, seizure, CVA, palpatations, mental health, musculoskeletal)? @ -ear foreign body, ear infection, URI. This list is not all-inclusive. EKG interpreted by me (3pts min.). @ -None done X-rays interpreted by me (1pt min.). @ -None done CT interpreted by me (1pt min.). @ -None done U/S interpreted by me (1pt. min.). @ -None done What testing was considered but not performed or refused? (CT, X-rays, U/S, labs)? Why? @ -None What meds were considered but not given or refused? Why? @ -None Did you discuss the management of the patient with other professionals (professionals i.e. , PA, SHIPPING PROCESSOR, lab, RT, psych nurse, family welfare social work professor, melter operator, teacher, biosecurity officer, residential case manager)? Give summary @ -No Was smoking cessation discussed for >3mins.? @ -No Was critical care preformed (if so, how long)? @ -No Were there social determinants of health that impacted care today? How? (Homelessness, low income, unemployed, alcoholism, drug addiction, transportation, low edu. Level, literacy, decrease access to med. care, [facility], rehab)? @ -No Was there de-escalation of care discussed even if they declined (Discuss DNR or withdrawal of care, Hospice)? DNR status @ -No What co-morbidities impacted this encounter? (DM, HTN, Smoking, COPD, CAD, Cancer, CVA, ARF, Chemo, Hep., AIDS, mental health diagnosis, sleep apnea, morbid obesity)? @ -None Was patient admitted / discharged? Hospital course, mention meds given and route, prescriptions, significant lab abnormalities, going to OR and other pert inent info. @ -Based on the patient's presentation and physical exam, she presents with concern for a bug in her right ear. Ear exam is unremarkable. Mild fluid buildup behind the right eardrum but no evidence of infection. Discussed the results with the patient. She expressed understanding. She is already on decongestants at home daily. She will continue to take the Claritin. Strict return precautions discussed. I instructed the patient to follow up with their PCP in the next 1-3 days. I explained that the patient should return to the emergency department if they experience any worsening symptoms. Strict return precautions were discussed with the patient. The patient expressed understanding of these instructions. I answered all questions that the patient had. The patient was discharged home in good condition with their prescriptions and follow up information. Undiagnosed new problem with uncertain prognosis? @ -No Drug Therapy requiring intensive monitoring for toxicity (Heparin, Nitro, Insulin, Cardizem)? @ -No Were any procedures done? @ -No Diagnosis/symptom? @ -Normal ear exam Acute, or Chronic, or Acute on Chronic? @ -Acute Uncomplicated (without systemic symptoms) or Complicated (systemic symptoms)? @ -Uncomplicated Side effects of treatment? @ -No Exacerbation, Progression, or Severe Exacerbation? @ -No Poses a threat to life or bodily function? How? (Chest pain, [place], NH, pneumonia, PE, COPD, DKA, ARF, appy, cholecystitis, CVA, Diverticulitis, Homicidal, Suicidal, threat to staff... and all critical care pts) @ -No Disposition Clinical Impression: Normal ear, nose and throat exam Disposition: HOME SELF-CARE Condition: Good Instructions (If sedation given, give patient instructions): Earache (ED) Is patient prescribed a controlled substance at d/c from ED?: No Referrals: Mukul Pena DO [Primary Care Provider] - 1-2 days Time of Disposition: 04:22
[2023-03-30 04:35] VITALS: BP 117/77; PULSE 82; RESP 18
== END 2023-03-30 04:35 | disposition home or self-care (01) ==
LOC: EC 03:49
DX: Z01.10 Encounter for examination of ears and hearing without abnormal findings (principal); F41.9 Anxiety disorder, unspecified; F32.A Depression, unspecified; F17.200 Nicotine dependence, unspecified, uncomplicated; Z79.899 Other long term (current) drug therapy; Z88.0 Allergy status to penicillin; Z88.8 Allergy status to other drugs, medicaments and biological substances; Z88.5 Allergy status to narcotic agent; Z91.018 Allergy to other foods
CPT/HCPCS: 99283

== ENCOUNTER 2023-05-18 02:48 | Emergency (ER) | payer BC, OTHER ==
[2023-05-18 02:56] VITALS: RESP 18
--- NOTE | 2023-05-18 03:38 | ED ---
ENT HPI - General Chief complaint: ENT Stated complaint: Sore throat Time Seen by Provider: 05/18/23 03:03 Source: patient, RN notes reviewed, old records reviewed Mode of arrival: ambulatory Limitations: no limitations - History of Present Illness Initial comments: This is a 27-year-old female to the emergency department for evaluation of sore throat severely sore throat no cough no congestion no fever. Some pain with swallowing. Patient is able swallow a tree without difficulty, no current cough or congestion. No fevers MD complaint: sore throat -: days(s) Severity: moderate Severity scale (1-10): 4 Quality: aching Consistency: constant Improves with: none Worsens with: swallowing, movement Associated Symptoms: sore throat - Related Data Home Medications Medication Instructions Recorded Confirmed Acetaminophen Tab [Tylenol] 1,000 mg PO DAILY PRN 02/06/21 02/06/21 Metoprolol Succinate (ER) [Toprol 25 mg PO DAILY 02/06/21 02/06/21 XL] PARoxetine [Paxil] 20 mg PO DAILY 02/06/21 02/06/21 Previous Rx's Medication Instructions Recorded Ketorolac [Toradol] 10 mg PO Q8HR PRN #8 tab 02/06/21 Ibuprofen [Motrin] 600 mg PO Q8HR PRN #30 tab 02/09/21 clindamycin HCL [Clindamycin HCl] 300 mg PO Q6HR #40 cap 02/09/21 Cephalexin [Keflex] 500 mg PO Q6HR #28 cap 02/01/22 Sulfamethox-Tmp 800-160Mg [Bactrim 1 tab PO Q12HR #14 tab 02/01/22 DS 800-160 mg] Amoxic-Pot Clav 875-125Mg 1 tab PO Q12HR #20 tablet 05/18/23 [Augmentin 875-125] Azithromycin [Zithromax] 500 mg PO DAILY 5 Days #1 tab 05/18/23 Allergies Allergy/AdvReac Type Severity Reaction Status Date / Time Penicillins Allergy Unknown Anaphylaxis Verified 03/30/23 03:58 adhesive tape Allergy Rash/Hives Verified 03/30/23 03:58 aspirin Allergy Rash/Hives Verified 03/30/23 03:58 banana Allergy Anaphylaxis Verified 03/30/23 03:58 Gadolinium-Containing Allergy Chest Pain Verified 03/30/23 03:58 Contrast Medi iodine Allergy Anaphylaxis Verified 03/30/23 03:58 morphine Allergy Itching Verified 03/30/23 03:58 naproxen Allergy Rash/Hives Verified 03/30/23 03:58 wool Allergy Rash/Hives Verified 03/30/23 03:58 chlorine Allergy Rash/Hives Uncoded 03/30/23 03:58 chlorophyll Allergy Unknown Uncoded 03/30/23 03:58 dust AdvReac Wheezing Uncoded 03/30/23 03:58 pet dander AdvReac Wheezing Uncoded 03/30/23 03:58 Review of Systems ROS Statement: Those systems with pertinent positive or pertinent negative responses have been documented in the HPI. ROS Other: All systems not noted in ROS Statement are negative. Past Medical History Past Medical History: CVA/TIA History of Any Multi-Drug Resistant Organisms: None Reported Past Surgical History: Section Additional Past Surgical History / Comment(s): D&C Past Anesthesia/Blood Transfusion Reactions: No Reported Reaction Past Psychological History: ADD/ADHD, Anxiety, Depression Smoking Status: Current every day smoker Past Alcohol Use History: None Reported Past Drug Use History: None Reported - Past Family History Mother Family Medical History: Diabetes Mellitus, Hypertension General Exam Limitations: no limitations General appearance: alert, in no apparent distress Head exam: Present: atraumatic, normocephalic, normal inspection Eye exam: Present: normal appearance, PERRL, EOMI. Absent: scleral icterus, conjunctival injection, periorbital swelling ENT exam: Present: normal exam, mucous membranes moist, other (Pharyngeal erythema) Neck exam: Present: normal inspection. Absent: tenderness, meningismus, lymphadenopathy Respiratory exam: Present: normal lung sounds bilaterally. Absent: respiratory distress, wheezes, rales, rhonchi, stridor Cardiovascular Exam: Present: regular rate, normal rhythm, normal heart sounds. Absent: systolic murmur, diastolic murmur, rubs, gallop, clicks GI/Abdominal exam: Present: soft, normal bowel sounds. Absent: distended, tenderness, guarding, rebound, rigid Extremities exam: Present: normal inspection, full ROM, normal capillary refill. Absent: tenderness, pedal edema, joint swelling, calf tenderness Back exam: Present: normal inspection Neurological exam: Present: alert, oriented X3, CN II-XII intact Psychiatric exam: Present: normal affect, normal mood Skin exam: Present: warm, dry, intact, normal color. Absent: rash Course Vital Signs 05/18/23 05/18/23 02:54 05:43 Temperature 99.3 F 98.0 F Pulse Rate 78 69 Respiratory 18 18 Rate Blood Pressure 131/85 121/85 O2 Sat by Pulse 98 98 Oximetry - Reevaluation(s) Reevaluation #1: 05/18/23 04:09 Medical records reviewed Reevaluation #2: 05/18/23 04:09 Patient is no real change in symptoms here in the ER Reevaluation #3: Patient informed results and questions are answered Reevaluation #4: 05/18/23 04:09 Was pt. sent in by a medical professional or institution? @ -no Did you speak to anyone other than the patient for history? @ -no Did you review nursing and triage notes? @ -agree Were old charts reviewed? @ -yes Differential Diagnosis? @ -prior EKG interpreted by me (3pts min.)? @ -no X-rays interpreted by me (1pt min.)? @ -yes CT interpreted by me (1pt min.)? @ -no U/S interpreted by me (1pt. min.)? @ -no What testing was considered but not performed? (CT, X-rays, U/S, labs)? Why? @ -no What meds were considered but not given? Why? @ -no Did you discuss the management of the patient with other professionals? @ -no Did you reconcile home meds? @ -no Was smoking cessation discussed for >3mins.? @ -no Was critical care preformed (if so, how long)? @ -no Were there social determinants of health that impacted care today? How? (Homelessness, low income, unemployed, alcoholism, drug addiction, transportation, low edu. Level, literacy, decrease access to med. care, [facility], rehab)? @ -no Was there de-escalation of care discussed even if they declined? (Discuss DNR or withdrawal of care, Hospice)? @ -no What co-morbidities impacted this encounter? (DM, HTN, Smoking, COPD, CAD, Cancer, CVA, Hep., AIDS, mental health diagnosis, sleep apnea, morbid obesity)? @ -none Was patient admitted / discharged? @ -27 female to the emergency department today for evaluation of sore throat. X-ray negative for acute disease, strep throat negative we'll place on antibiotics for pharyngitis Discharged Undiagnosed new problem with uncertain prognosis? @ -no Drug Therapy requiring intensive monitoring for toxicity (Heparin, Nitro, Insulin, Cardizem)? @ -no Were any procedures done? @ -no Diagnosis/symptom? @ -Pharyngitis Acute, or Chronic, or Acute on Chronic? @ -acute Uncomplicated (without systemic symptoms) or Complicated (systemic symptoms)? @ -complicated Side effects of treatment? @ -no Exacerbation, Progression, or Severe Exacerbation] @ -no Poses a threat to life or bodily function? @ -no Medical Decision Making - Medical Decision Making 27 female to the emergency department today for evaluation of sore throat. X- ray negative for acute disease, strep throat negative we'll place on antibiotics for pharyngitis - Lab Data Lab Results 05/18/23 Range/Units 03:02 Group A Strep (PCR) NOT DETECTED (Not Detectd) - Radiology Data Radiology results: report reviewed (X-ray soft tissue neck negative for acute disease), image reviewed Disposition Clinical Impression: Sore throat, Pharyngitis Disposition: HOME SELF-CARE Condition: Good Instructions (If sedation given, give patient instructions): Pharyngitis (ED), Strep Throat (ED) Prescriptions: Amoxic-Pot Clav 875-125Mg [Augmentin 875-125] 1 tab PO Q12HR #20 tablet Azithromycin [Zithromax] 500 mg PO DAILY 5 Days #1 tab Is patient prescribed a controlled substance at d/c from ED?: No Referrals: Mukul Pena DO [Primary Care Provider] - 1-2 days Time of Disposition: 05:30
[2023-05-18] MEDS ORDERED: AMOXIC-POT CLAV 875-125MG 1 EACH TAB PO STA (05:30)
[2023-05-18] MEDS ORDERED: AZITHROMYCIN 500 MG TAB PO STA (05:37)
[2023-05-18 05:45] VITALS: BP 121/85; PULSE 69; TEMP 98
--- NOTE | 2023-05-18 07:39 | XR ---
EXAMINATION TYPE: XR soft tissue neck DATE OF EXAM: 05/18/2023 COMPARISON: None HISTORY: Soft tissue neck sore throat 2-3 days TECHNIQUE: 2 view soft tissue neck FINDINGS: Prevertebral space is normal. There is straightening the cervical spine in the sagittal [place] ne. The epiglottis appears normal. Subglottic airway appears unremarkable. No radiopaque foreign bodi es evident. IMPRESSION: 1. No acute abnormality soft tissue neck.
== END 2023-05-18 05:44 | disposition home or self-care (01) ==
LOC: EC 02:48
DX: J02.9 Acute pharyngitis, unspecified (principal); F41.9 Anxiety disorder, unspecified; F32.A Depression, unspecified; F17.200 Nicotine dependence, unspecified, uncomplicated; Z79.899 Other long term (current) drug therapy; Z88.0 Allergy status to penicillin; Z88.8 Allergy status to other drugs, medicaments and biological substances; Z88.5 Allergy status to narcotic agent; Z91.018 Allergy to other foods
CPT/HCPCS: 70360; 87651; 99283

== ENCOUNTER 2024-03-15 23:19 | Emergency (ER) | payer OTHER ==
[2024-03-15 23:38] VITALS: RESP 18; TEMP 98
--- NOTE | 2024-03-15 23:38 | ED ---
General Adult HPI - General Chief complaint: Abdominal Pain Stated complaint: rt leg pain vomiting left side abd pain Time Seen by Provider: 03/15/24 23:36 Source: patient, RN notes reviewed Mode of arrival: ambulatory Limitations: no limitations - History of Present Illness Initial comments: 28-year-old female presented to the ER with a chief complaint of vomiting blood. Patient states earlier this evening she had an episode of hematic emesis. She states since then she started to have mid chest discomfort with shortness of breath. She states it is in her mid chest and radiates to epigastric region. She also is reporting left-sided abdominal pain. Patient states that she is endorsing right calf discomfort and left thigh discomfort. She states that her bilateral feet have also been mildly swollen the past couple of days. Denies any calf swelling. Denies any constipation, diarrhea, urinary complaints or possible . She does take control and smokes. No history of blood clots. She does state the pain is sharp in nature and worse with breathing. She does states she had approximately 2-hour car ride recently to visit her mother. - Related Data Home Medications Medication Instructions Recorded Confirmed Acetaminophen Tab [Tylenol] 1,000 mg PO DAILY PRN 02/06/21 02/06/21 Metoprolol Succinate (ER) [Toprol 25 mg PO DAILY 02/06/21 02/06/21 XL] PARoxetine [Paxil] 20 mg PO DAILY 02/06/21 02/06/21 Previous Rx's Medication Instructions Recorded Ketorolac [Toradol] 10 mg PO Q8HR PRN #8 tab 02/06/21 Ibuprofen [Motrin] 600 mg PO Q8HR PRN #30 tab 02/09/21 clindamycin HCL [Clindamycin HCl] 300 mg PO Q6HR #40 cap 02/09/21 Cephalexin [Keflex] 500 mg PO Q6HR #28 cap 02/01/22 Sulfamethox-Tmp 800-160Mg [Bactrim 1 tab PO Q12HR #14 tab 02/01/22 DS 800-160 mg] Amoxic-Pot Clav 875-125Mg 1 tab PO Q12HR #20 tablet 05/18/23 [Augmentin 875-125] Azithromycin [Zithromax] 500 mg PO DAILY 5 Days #1 tab 05/18/23 Allergies Allergy/AdvReac Type Severity Reaction Status Date / Time Penicillins Allergy Unknown Anaphylaxis Verified 03/30/23 03:58 adhesive tape Allergy Rash/Hives Verified 03/30/23 03:58 aspirin Allergy Rash/Hives Verified 03/30/23 03:58 banana Allergy Anaphylaxis Verified 03/30/23 03:58 Gadolinium-Containing Allergy Chest Pain Verified 03/30/23 03:58 Contrast Medi iodine Allergy Anaphylaxis Verified 03/30/23 03:58 morphine Allergy Itching Verified 03/30/23 03:58 naproxen Allergy Rash/Hives Verified 03/30/23 03:58 wool Allergy Rash/Hives Verified 03/30/23 03:58 chlorine Allergy Rash/Hives Uncoded 03/30/23 03:58 chlorophyll Allergy Unknown Uncoded 03/30/23 03:58 dust AdvReac Wheezing Uncoded 03/30/23 03:58 pet dander AdvReac Wheezing Uncoded 03/30/23 03:58 Review of Systems ROS Statement: Those systems with pertinent positive or pertinent negative responses have been documented in the HPI. ROS Other: All systems not noted in ROS Statement are negative. Past Medical History Past Medical History: CVA/TIA History of Any Multi-Drug Resistant Organisms: None Reported Past Surgical History: Section Additional Past Surgical History / Comment(s): D&C Past Anesthesia/Blood Transfusion Reactions: No Reported Reaction Past Psychological History: ADD/ADHD, Anxiety, Depression Smoking Status: Current every day smoker Past Alcohol Use History: None Reported Past Drug Use History: None Reported - Past Family History Mother Family Medical History: Diabetes Mellitus, Hypertension General Exam General appearance: alert, in no apparent distress Head exam: Present: atraumatic, normocephalic, normal inspection Respiratory exam: Present: normal lung sounds bilaterally. Absent: respiratory distress, wheezes, rales, rhonchi, stridor Cardiovascular Exam: Present: regular rate, normal rhythm, normal heart sounds. Absent: systolic murmur, diastolic murmur, rubs, gallop, clicks GI/Abdominal exam: Present: soft, normal bowel sounds. Absent: distended, tenderness, guarding, rebound, rigid Extremities exam: Present: normal inspection, full ROM, normal capillary refill. Absent: tenderness, pedal edema, joint swelling, calf tenderness Skin exam: Present: warm, dry, intact, normal color. Absent: rash Course Vital Signs 03/15/24 03/16/24 23:21 02:13 Temperature 98.0 F Pulse Rate 89 63 Respiratory 18 18 Rate Blood Pressure 143/93 117/74 O2 Sat by Pulse 98 97 Oximetry Medical Decision Making - Medical Decision Making Was pt. sent in by a medical professional or institution (, HUEY, TRANSPORTATION MAINTENANCE WORKER, urgent care, hospital, or custodial...) When possible be specific @ -No Did you speak to anyone other than the patient for history (EMS, parent, family, police, friend...)? What history was obtained from this source @ -No Did you review nursing and triage notes (agree or disagree)? Why? @ -I reviewed and agree with nursing and triage notes Were old charts reviewed (outside hosp., previous admission, EMS record, old EKG, old radiological studies, urgent care reports/EKG's, custodial records)? Report findings @ -No old charts were reviewed Differential Diagnosis (chest pain, altered mental status, abdominal pain women, abdominal pain men, vaginal bleeding, weakness, fever, dyspnea, syncope, headache, dizziness, GI bleed, back pain, seizure, CVA, palpatations, mental health, musculoskeletal)? @ -Differential Abdominal Pain Women:Appendicitis, Cholecystitis, diverticulosis, ischemic bowel, pancreatitis, hepatitis, UTI, gastroenteritis, AAA, incarcerated hernia, bowel obstruction, constipation, inflammatory bowel, hepatitis, peptic ulcer disease, splenic infarction, perforated viscus, vulvitis, ovarian torsion, PID, kidney stone, placenta abruption, this is not meant to be an all-inclusive list EKG interpreted by me (3pts min.). @ -As above X-rays interpreted by me (1pt min.). @ -Chest x-ray interpreted by me negative for acute cardiopulmonary process. CT interpreted by me (1pt min.). @ -None done U/S interpreted by me (1pt. min.). @ -None done What testing was considered but not performed or refused? (CT, X-rays, U/S, labs)? Why? @ -None What meds were considered but not given or refused? Why? @ -None Did you discuss the management of the patient with other professionals (professionals i.e. HUEY Schuler, TRANSPORTATION MAINTENANCE WORKER, lab, RT, psych nurse, social media community manager, tube builder, teacher, security vehicle patrol officer, complex case manager)? Give summary @ -No Was smoking cessation discussed for >3mins.? @ -I discussed smoking cessation for greater than 3 minutes. The risk of smoking were discussed with the patient including but not limited to risks of cancer, stroke, coronary artery disease and COPD. Also discussed with patient were multiple methods of quitting smoking. Lastly we discussed the financial cost of smoking. Was critical care preformed (if so, how long)? @ -No Were there social determinants of health that impacted care today? How? (Home lessness, low income, unemployed, alcoholism, drug addiction, transportation, low edu. Level, literacy, decrease access to med. care, long term, rehab)? @ -No Was there de-escalation of care discussed even if they declined (Discuss DNR or withdrawal of care, Hospice)? DNR status @ -No What co-morbidities impacted this encounter? (DM, HTN, Smoking, COPD, CAD, Cancer, CVA, ARF, Chemo, Hep., AIDS, mental health diagnosis, sleep apnea, morbid obesity)? @ -Smoker Was patient admitted / discharged? Hospital course, mention meds given and route, prescriptions, significant lab abnormalities, going to OR and other pertinent info. @ -Discharge. 28-year-old female presented to the ER with a chief complaint of hematemsis. History and physical exam completed. Vitals stable. Patient in no signs of acute distress and nontoxic-appearing. Laboratory studies obtained unremarkable. Due to concern of blood clot due to patient's complaints, smoking and control use D-dimer obtained. D-dimer 0.2. Chest x-ray interpreted by me negative for acute cardiopulmonary process. EKG showing sinus bradycardia with no acute ST segment or T wave abnormalities. Upon reevaluation, patient resting comfortably in recliner in no signs of acute distress. Unlabored breathing. Results discussed with patient, all questions answered. Advise close follow-up with PCP. Return parameters discussed. Patient discharged in stable condition with follow-up to PCP. Patient expressed verbal understanding and agreement with care plan. Case discussed with ED attending, Dr. Burgess. Undiagnosed new problem with uncertain prognosis? @ -No Drug Therapy requiring intensive monitoring for toxicity (Heparin, Nitro, Insulin, Cardizem)? @ -No Were any procedures done? @ -No Diagnosis/symptom? @ -Abdominal pain Acute, or Chronic, or Acute on Chronic? @ -Acute Uncomplicated (without systemic symptoms) or Complicated (systemic symptoms)? @ -Uncomplicated Side effects of treatment? @ -No Exacerbation, Progression, or Severe Exacerbation? @ -No Poses a threat to life or bodily function? How? (Chest pain, USA, [place], pneumonia, PE, COPD, DKA, ARF, appy, cholecystitis, CVA, Diverticulitis, Homicidal, Suicidal, threat to staff... and all critical care pts) @ -No - Lab Data Result diagrams: 03/16/24 00:20 03/16/24 00:20 Lab Results 03/16/24 03/16/24 03/16/24 Range/Units 00:20 00:20 00:20 WBC 9.6 (3.8-10.6) k/uL RBC 4.69 (3.80-5.40) m/uL Hgb 14.4 (11.4-16.0) gm/dL Hct 44.2 (34.0-46.0) % MCV 94.2 D (80.0-100.0) fL MCH 30.7 (25.0-35.0) pg MCHC 32.6 (31.0-37.0) g/dL RDW 12.5 (11.5-15.5) % Plt Count 275 (150-450) k/uL MPV 8.9 Neutrophils % 49 % Lymphocytes % 42 % Monocytes % 4 % Eosinophils % 4 % Basophils % 1 % Neutrophils # 4.7 (1.3-7.7) k/uL Lymphocytes # 4.0 (1.0-4.8) k/uL Monocytes # 0.3 (0-1.0) k/uL Eosinophils # 0.4 (0-0.7) k/uL Basophils # 0.1 (0-0.2) k/uL PT 10.1 (10.0-12.5) sec INR 0.9 (<1.2) APTT 28.4 (22.0-30.0) sec D-Dimer 0.20 (<0.60) mg/L FEU Sodium 138 (137-145) mmol/L Potassium 4.7 (3.5-5.1) mmol/L Chloride 111 H (98-107) mmol/L Carbon Dioxide 17 L (22-30) mmol/L Anion Gap 10 mmol/L BUN 11 (7-17) mg/dL Creatinine 0.59 (0.52-1.04) mg/dL Est GFR (CKD-EPI)AfAm >90 (>60 ml/min/1.73 sqM) Est GFR (CKD-EPI)NonAf >90 (>60 ml/min/1.73 sqM) Glucose 86 (74-99) mg/dL Calcium 9.3 (8.4-10.2) mg/dL Total Bilirubin 0.8 (0.2-1.3) mg/dL AST 37 H (14-36) U/L ALT 18 (4-34) U/L Alkaline Phosphatase 59 (38-126) U/L Troponin I (0.000-0.034) ng/mL Total Protein 7.6 (6.3-8.2) g/dL Albumin 4.8 (3.5-5.0) g/dL 03/16/24 Range/Units 00:20 WBC (3.8-10.6) k/uL RBC (3.80-5.40) m/uL Hgb (11.4-16.0) gm/dL Hct (34.0-46.0) % MCV (80.0-100.0) fL MCH (25.0-35.0) pg MCHC (31.0-37.0) g/dL RDW (11.5-15.5) % Plt Count (150-450) k/uL MPV Neutrophils % % Lymphocytes % % Monocytes % % Eosinophils % % Basophils % % Neutrophils # (1.3-7.7) k/uL Lymphocytes # (1.0-4.8) k/uL Monocytes # (0-1.0) k/uL Eosinophils # (0-0.7) k/uL Basophils # (0-0.2) k/uL PT (10.0-12.5) sec INR (<1.2) APTT (22.0-30.0) sec D-Dimer (<0.60) mg/L FEU Sodium (137-145) mmol/L Potassium (3.5-5.1) mmol/L Chloride (98-107) mmol/L Carbon Dioxide (22-30) mmol/L Anion Gap mmol/L BUN (7-17) mg/dL Creatinine (0.52-1.04) mg/dL Est GFR (CKD-EPI)AfAm (>60 ml/min/1.73 sqM) Est GFR (CKD-EPI)NonAf (>60 ml/min/1.73 sqM) Glucose (74-99) mg/dL Calcium (8.4-10.2) mg/dL Total Bilirubin (0.2-1.3) mg/dL AST (14-36) U/L ALT (4-34) U/L Alkaline Phosphatase (38-126) U/L Troponin I <0.012 (0.000-0.034) ng/mL Total Protein (6.3-8.2) g/dL Albumin (3.5-5.0) g/dL - EKG Data -: EKG Interpreted by Me EKG Comments: EKG taken at 00: 35 showing sinus bradycardia no acute ST segment or T wave ab normalities. Ventricular rate 54, NC interval 186, QRS duration 90, QT/QTc 393/380. - Radiology Data Radiology results: report reviewed, image reviewed Disposition Clinical Impression: Abdominal pain Disposition: HOME SELF-CARE Condition: Stable Instructions (If sedation given, give patient instructions): Abdominal Pain (ED) Additional Instructions: Up with PCP in the next 1 to 2 days. Return to the ER for any new or worsening concerns. Is patient prescribed a controlled substance at d/c from ED?: No Referrals: Mukul Pena DO [Primary Care Provider] - 1-2 days Time of Disposition: 02:06
[2024-03-16 00:37] LABS: Basophils # (A) 0.1 k/uL (0-0.2); Basophils % (A) 1 %; Eosinophils # (A) 0.4 k/uL (0-0.7); Eosinophils % (A) 4 %; HCT 44.2 % (34.0-46.0); HGB 14.4 gm/dL (11.4-16.0); Lymphocytes % (A) 42 %; MCH 30.7 pg (25.0-35.0); MCHC 32.6 g/dL (31.0-37.0); Mean Platelet Volume 8.9; Monocytes # (A) 0.3 k/uL (0-1.0); Monocytes % (A) 4 %; Neutrophils # (A) 4.7 k/uL (1.3-7.7); Neutrophils % (A) 49 %; Platelet Count 275 k/uL (150-450); RBC 4.69 m/uL (3.80-5.40); RDW 12.5 % (11.5-15.5); WBC 9.6 k/uL (3.8-10.6)
[2024-03-16 00:38] LABS: MCV 94.2 fL (80.0-100.0)
[2024-03-16 01:10] LABS: ALT 18 U/L (4-34); African American GFR (CKD) >90 (>60 ml/min/1.73 sqM); Anion Gap 10 mmol/L; Blood Urea Nitrogen 11 mg/dL (7-17); Calcium 9.3 mg/dL (8.4-10.2); Carbon Dioxide 17 mmol/L (22-30); Chloride 111 mmol/L (98-107); Glucose 86 mg/dL (74-99); Non-African American GFR(CKD) >90 (>60 ml/min/1.73 sqM); Sodium 138 mmol/L (137-145)
[2024-03-16 01:20] LABS: Potassium 4.7 mmol/L (3.5-5.1)
[2024-03-16 01:21] LABS: AST 37 U/L (14-36); Albumin 4.8 g/dL (3.5-5.0); Alkaline Phosphatase 59 U/L (38-126); Total Bilirubin 0.8 mg/dL (0.2-1.3); Total Protein 7.6 g/dL (6.3-8.2)
[2024-03-16 01:52] LABS: INR 0.9 (<1.2); Partial Thromboplastin Time 28.4 sec (22.0-30.0); Prothrombin Time 10.1 sec (10.0-12.5)
--- NOTE | 2024-03-16 02:40 | XR ---
EXAM: XR Chest, 2 Views CLINICAL HISTORY: chest pain/SOB TECHNIQUE: Frontal and lateral views of the chest. COMPARISON: November 14, 2022 FINDINGS: Lungs: Unremarkable. No infiltration, atelectasis or mass density. Pleural space: Unremarkable. No pneumothorax. No pleural fluid. Heart: Unremarkable. No cardiomegaly. Mediastinum: Unremarkable. Normal mediastinal contour. Bones/joints: Unremarkable. No acute abnormalities. IMPRESSION: Negative chest x-rays.
[2024-03-16 03:35] VITALS: BP 117/74; PULSE 63
== END 2024-03-16 02:13 | disposition home or self-care (01) ==
LOC: EC 23:19
DX: R10.9 Unspecified abdominal pain (principal); R07.89 Other chest pain; R00.1 Bradycardia, unspecified; F17.210 Nicotine dependence, cigarettes, uncomplicated; Z88.0 Allergy status to penicillin; Z88.5 Allergy status to narcotic agent; Z88.6 Allergy status to analgesic agent; Z91.09 Other allergy status, other than to drugs and biological substances; Z91.018 Allergy to other foods; Z88.8 Allergy status to other drugs, medicaments and biological substances
CPT/HCPCS: 36415; 71046; 80053; 84484; 85025; 85379; 85610; 85730; 93005; 99284; 99406

== ENCOUNTER 2024-06-15 23:27 | Emergency (ER) | payer OTHER ==
[2024-06-15 23:30] VITALS: TEMP 97.9
--- NOTE | 2024-06-15 23:58 | ED ---
Lower Extremity Injury HPI - General Chief Complaint: Extremity Injury, Lower Stated Complaint: right leg swelling Time Seen by Provider: 06/15/24 23:58 Source: patient, RN notes reviewed Mode of arrival: ambulatory Limitations: no limitations - History of Present Illness Initial Comments: 28-year-old female presented to the ER with a chief complaint of right knee injury. Patient states while waking up this morning she accidentally hit her right knee against her bed frame. She states since then she has been endorsing pain with ambulation. She states she has been having to walk with a straight leg as she feels "cracking" when bending her right knee. Patient has not taken anything for pain at this time. Denies any other injuries or complaints. - Related Data Home Medications Medication Instructions Recorded Confirmed Acetaminophen Tab [Tylenol] 1,000 mg PO DAILY PRN 02/06/21 02/06/21 Metoprolol Succinate (ER) [Toprol 25 mg PO DAILY 02/06/21 02/06/21 XL] PARoxetine [Paxil] 20 mg PO DAILY 02/06/21 02/06/21 Previous Rx's Medication Instructions Recorded Ketorolac [Toradol] 10 mg PO Q8HR PRN #8 tab 02/06/21 Ibuprofen [Motrin] 600 mg PO Q8HR PRN #30 tab 02/09/21 clindamycin HCL [Clindamycin HCl] 300 mg PO Q6HR #40 cap 02/09/21 Cephalexin [Keflex] 500 mg PO Q6HR #28 cap 02/01/22 Sulfamethox-Tmp 800-160Mg [Bactrim 1 tab PO Q12HR #14 tab 02/01/22 DS 800-160 mg] Amoxic-Pot Clav 875-125Mg 1 tab PO Q12HR #20 tablet 05/18/23 [Augmentin 875-125] Azithromycin [Zithromax] 500 mg PO DAILY 5 Days #1 tab 05/18/23 Allergies Allergy/AdvReac Type Severity Reaction Status Date / Time Penicillins Allergy Unknown Anaphylaxis Verified 06/15/24 23:30 adhesive tape Allergy Rash/Hives Verified 06/15/24 23:30 aspirin Allergy Rash/Hives Verified 06/15/24 23:30 banana Allergy Anaphylaxis Verified 06/15/24 23:30 Gadolinium-Containing Allergy Chest Pain Verified 06/15/24 23:30 Contrast Medi iodine Allergy Anaphylaxis Verified 06/15/24 23:30 morphine Allergy Itching Verified 06/15/24 23:30 naproxen Allergy Rash/Hives Verified 06/15/24 23:30 wool Allergy Rash/Hives Verified 06/15/24 23:30 chlorine Allergy Rash/Hives Uncoded 06/15/24 23:30 chlorophyll Allergy Unknown Uncoded 06/15/24 23:30 dust AdvReac Wheezing Uncoded 06/15/24 23:30 pet dander AdvReac Wheezing Uncoded 06/15/24 23:30 Review of Systems ROS Statement: Those systems with pertinent positive or pertinent negative responses have been documented in the HPI. ROS Other: All systems not noted in ROS Statement are negative. Past Medical History Past Medical History: CVA/TIA History of Any Multi-Drug Resistant Organisms: None Reported Past Surgical History: Section Additional Past Surgical History / Comment(s): D&C Past Anesthesia/Blood Transfusion Reactions: No Reported Reaction Past Psychological History: ADD/ADHD, Anxiety, Depression Smoking Status: Current every day smoker Past Alcohol Use History: None Reported Past Drug Use History: None Reported - Past Family History Mother Family Medical History: Diabetes Mellitus, Hypertension General Exam Limitations: no limitations General appearance: alert, in no apparent distress Respiratory exam: Present: normal lung sounds bilaterally. Absent: respiratory distress, wheezes, rales, rhonchi, stridor Cardiovascular Exam: Present: regular rate, normal rhythm, normal heart sounds. Absent: systolic murmur, diastolic murmur, rubs, gallop, clicks Extremities exam: Present: normal inspection, full ROM, tenderness (Right lateral knee), normal capillary refill, other (2+ right dorsalis pedis pulse. Sensation intact. Patient has full active range of motion.). Absent: pedal edema, joint swelling, calf tenderness Neurological exam: Present: alert, oriented X3, CN II-XII intact Skin exam: Present: warm, dry, intact, normal color. Absent: rash Course Vital Signs 06/15/24 06/16/24 23:29 01:35 Temperature 97.9 F Pulse Rate 74 57 L Respiratory 18 16 Rate Blood Pressure 150/91 129/78 O2 Sat by Pulse 98 96 Oximetry Medical Decision Making - Medical Decision Making Was pt. sent in by a medical professional or institution (, PA, DELICATESSEN SLICER, urgent care, hospital, or [facility]...) When possible be specific @ -No Did you speak to anyone other than the patient for history (EMS, parent, family, police, friend...)? What history was obtained from this source @ -No Did you review nursing and triage notes (agree or disagree)? Why? @ -I reviewed and agree with nursing and triage notes Were old charts reviewed (outside hosp., previous admission, EMS record, old EKG, old radiological studies, urgent care reports/EKG's, [facility] records)? Report findings @ -No old charts were reviewed Differential Diagnosis (chest pain, altered mental status, abdominal pain women, abdominal pain men, vaginal bleeding, weakness, fever, dyspnea, syncope, headache, dizziness, GI bleed, back pain, seizure, CVA, palpatations, mental health, musculoskeletal)? @ -Differential musculoskeletal EKG interpreted by me (3pts min.). @ -None X-rays interpreted by me (1pt min.). @ -Knee x-ray interpreted by me negative for acute process. CT interpreted by me (1pt min.). @ -None done U/S interpreted by me (1pt. min.). @ -None done What testing was considered but not performed or refused? (CT, X-rays, U/S, labs)? Why? @ -None What meds were considered but not given or refused? Why? @ -Patient refused analgesic medication. Did you discuss the management of the patient with other professionals (professionals i.e. , PA, DELICATESSEN SLICER, lab, RT, psych nurse, dialysis social worker, broom maker, teacher, electronic intelligence officer, comp field case manager)? Give summary @ -No Was smoking cessation discussed for >3mins.? @ -No Was critical care preformed (if so, how long)? @ -No Were there social determinants of health that impacted care today? How? (Homelessness, low income, unemployed, alcoholism, drug addiction, transportation, low edu. Level, literacy, decrease access to med. care, fpc, rehab)? @ -No Was there de-escalation of care discussed even if they declined (Discuss DNR or withdrawal of care, Hospice)? DNR status @ -No What co-morbidities impacted this encounter? (DM, HTN, Smoking, COPD, CAD, Cancer, CVA, ARF, Chemo, Hep., AIDS, mental health diagnosis, sleep apnea, morbid obesity)? @ -None Was patient admitted / discharged? Hospital course, mention meds given and route, prescriptions, significant lab abnormalities, going to OR and other pertinent info. @ -Discharge. 28-year-old female presented to ER with a chief complaint of right knee injury. History and physical exam completed. Vitals stable. Patient in no signs of acute distress and nontoxic-appearing. Right lower extremity neurovascular intact. Patient has full active range of motion of right knee. Mild tenderness to right lateral knee. X-rays obtained negative for acute process. Patient refused analgesic medication. Upon reevaluation, patient resting company in exam room eager for discharge. Results discussed with patient, all questions answered. Patient placed in an Red wrap. Strict return parameters discussed. Patient discharged stable condition with follow-up to PCP. Case discussed with ED attending, Dr. Moses. Undiagnosed new problem with uncertain prognosis? @ -No Drug Therapy requiring intensive monitoring for toxicity (Heparin, Nitro, Insulin, Cardizem)? @ -No Were any procedures done? @ -No Diagnosis/symptom? @ -Knee pain Acute, or Chronic, or Acute on Chronic? @ -Acute Uncomplicated (without systemic symptoms) or Complicated (systemic symptoms)? @ -Uncomplicated Side effects of treatment? @ -No Exacerbation, Progression, or Severe Exacerbation? @ -No Poses a threat to life or bodily function? How? (Chest pain, USA, PA, pneumonia, PE, COPD, DKA, ARF, appy, cholecystitis, CVA, Diverticulitis, Homicidal, Suicidal, threat to staff... and all critical care pts) @ -No - Radiology Data Radiology results: report reviewed, image reviewed Disposition Clinical Impression: Knee injury Disposition: HOME SELF-CARE Condition: Stable Instructions (If sedation given, give patient instructions): Knee Pain (ED) Additional Instructions: Please follow-up with PCP. You may take [id number] medications for pain control. Return to the ER for any new or worsening concerns. Is patient prescribed a controlled substance at d/c from ED?: No Referrals: Mukul Pena DO [Primary Care Provider] - 1-2 days Time of Disposition: 01:30
[2024-06-16 01:36] VITALS: BP 129/78; PULSE 57; RESP 16
--- NOTE | 2024-06-16 01:39 | XR ---
EXAM: XR Right Knee, 3 Views CLINICAL HISTORY: Pain TECHNIQUE: Three views of the right knee. COMPARISON: No relevant prior studies available. FINDINGS: Bones/joints: No appreciable degenerative changes identified. No acute fracture. No dislocation. Soft tissues: Unremarkable. IMPRESSION: No acute findings in the right knee.
== END 2024-06-16 01:36 | disposition home or self-care (01) ==
LOC: EC 23:27
DX: S80.911A Unspecified superficial injury of right knee, initial encounter (principal); F17.200 Nicotine dependence, unspecified, uncomplicated; Z88.6 Allergy status to analgesic agent; Z88.8 Allergy status to other drugs, medicaments and biological substances; Z88.0 Allergy status to penicillin; Z91.041 Radiographic dye allergy status; Z91.018 Allergy to other foods; W22.09XA Striking against other stationary object, initial encounter; Y93.01 Activity, walking, marching and hiking
CPT/HCPCS: 99283

== ENCOUNTER → 2024-09-23 | Outpatient (CLI) | payer OTHER ==
--- NOTE | 2024-09-23 11:18 | MM ---
Reason for Exam: Clinical finding. Baseline mammogram. Indicated Problems: Lump or thickening of the right side for 6 Month(s). Patient History: Menarche at age 10. First Full-Term at age 23. Premenopausal. Patient has history of breast feeding. Currently using Hormonal Contraceptives, starting at age 28. Maternal aunt had breast cancer under age 50. Maternal grandmother (gr) had breast cancer. Paternal grandmother (gr) had breast cancer. Mother had breast cancer under age 50. Prior Study Comparison: Patient's first Mammogram. Tissue Density: There are scattered areas of fibroglandular density. Findings: Analyzed By CAD. The pattern is symmetrical. Without any right medial lateral oblique view there is some distortion in the upper middle right breast. Under compression this area appears to disperse normally. Mediolateral view appears normal without underlying spiculated or lobular mass or architectural distortion. Breast:No suspicious groups of microcalcifications, spiculated or lobular masses, architectural distortion or other secondary signs of malignancy are mammographically apparent. Overall Assessment: Incomplete: need additional imaging evaluation, BI-RAD 0 Management: Diagnostic Breast Ultrasound of the right breast. A negative mammogram report should not preclude additional follow up of suspicious palpable abnormalities. Patient should continue monthly self breast exam. A clinical breast exam by your physician is recommended on an annual basis and results should be correlated with mammographic findings. Note on Alisa scores and lifetime risk: 1. A Alisa score greater than 3% is considered moderate risk. If this is the case, consider specialist referral to assess eligibility for a risk reducing agent. 2. If overall lifetime risk for the development of breast cancer is 20% or higher, the patient may qualify for future screening with alternating mammogram and breast MRI. [facility], , 09/23/2024 11:16 AM. Electronically signed and approved by: Naseem Mojica D.O. Radiologis
--- NOTE | 2024-09-23 11:46 | USB ---
Reason for Exam: Clinical finding. Patient History: Menarche at age 10. First Full-Term at age 23. Premenopausal. Patient has history of breast feeding. Currently using Hormonal Contraceptives, starting at age 28. Maternal aunt had breast cancer under age 50. Maternal grandmother (gr) had breast cancer. Paternal grandmother (gr) had breast cancer. Mother had breast cancer under age 50. Technique: Method: Targeted. Findings: The lateral section of the breast of the right breast, the axilla of the right breast and the retroareolar of the right breast were scanned. No solid or cystic masses are identified.. Overall Assessment: Negative, BI-RAD 1 Management: Screening Mammogram of both breasts at age 36. A clinical breast exam by your physician is recommended on an annual basis and results should be correlated with mammographic findings. This exam should not preclude additional follow-up of suspicious palpable abnormalities. Results were given to the patient verbally at the time of exam. [facility], , 09/23/2024 11:44 AM. Electronically signed and approved by: Naseem Mojica D.O. Radiologis
== END | disposition home or self-care (01) ==
LOC: RADMAMWWP 10:00
PROVIDERS: ATTEND Family Medicine
DX: N63.11 Unspecified lump in the right breast, upper outer quadrant (principal); N64.4 Mastodynia; Z80.3 Family history of malignant neoplasm of breast; R92.323 Mammographic fibroglandular density, bilateral breasts
CPT/HCPCS: 77066; 76642; G0279; 77062